=== PATIENT | female | born 1940 | race Caucasian/White ===

== ENCOUNTER → 2016-03-13 | Outpatient (CLI) | payer MEDICARE, OTHER ==
[~2016-03-13] MED LIST: ACETTAB89 PO; ACYC400T PO; ASCO500C49 PO; ASPI-231 PO; CALC-355 OR; CEPH-37 PO; CHOL3000 PO; COEN100C37 PO; CYAN100023 PO; FLAX12003 PO; FURO40TA PO; GINK40TA PO; GLUC1500 OR; IBUP800T24 PO; MULTCAP45 PO; NOR10T PO; OMEGCAP OR; SIMV40TA96 PO; TRAM50TA2 PO; VITA400T4 PO
[2016-03-13 16:30] LABS: Basophils # (auto) 0.1 uL; Basophils % (auto) 0.8 % (0.0-2.0); Eosinophils # (auto) 0.2 uL; Eosinophils % (auto) 2.4 % (0.0-7.0); Hematocrit 42.4 % (36.0-46.0); Hemoglobin 13.8 g/dL (12.2-16.2); Lymphocytes # (auto) 2.9 uL; Lymphocytes % (auto) 29.6 % (10.0-50.0); Mean Corpuscular Hemoglobin 28.3 pg (28.0-32.0); Mean Corpuscular Hgb Conc. 32.6 g/dL (32.0-36.0); Mean Corpuscular Volume 86.7 fL (80.0-100.0); Mean Platelet Volume 8.3 fL (7.4-10.4); Monocytes # (auto) 0.7 uL; Monocytes % (auto) 6.8 % (0.0-12.0); Neutrophils % (auto) 60.4 % (37.0-80.0); Platelet Count (auto) 346 10^3/uL (140-450); Red Cell Distribution Width 14.1 % (11.6-16.0); White Blood Cell 9.9 10^3/uL (4.4-10.8)
[2016-03-13 16:35] LABS: Urine Bilirubin Negative (Negative); Urine Blood Negative /uL (Negative); Urine Color Yellow (Yellow); Urine Glucose Normal (Normal); Urine Ketone Negative (Negative); Urine Nitrite Negative (Negative); Urine Urobilinogen Normal (Negative); Urine pH 6.5 (5.0-8.0)
[2016-03-13 17:11] LABS: Albumin 4.5 g/dL (3.4-5.0); Alkaline Phosphatase 88 U/L (45-117); Anion Gap 10 (5-15); Aspartate Aminotransferase 13 U/L (15-37); BUN/Creatinine Ratio 21.4; Bilirubin, Direct 0.1 mg/dL (0-0.2); Bilirubin, Total 0.5 mg/dL (0.2-1.0); Blood Urea Nitrogen 21 mg/dL (7-18); Calcium 9.3 mg/dL (8.5-10.1); Carbon Dioxide 27 mmol/L (21-32); Chloride 103 mmol/L (98-107); Cholesterol 218 mg/dL (<200); GFR African American 71 mL/min; GFR Non-African American 59 mL/min; Glucose 96 mg/dL (74-106); HDL Cholesterol 44 mg/dL (40-59); Sodium 140 mmol/L (136-145); Total Protein 8.1 g/dL (6.4-8.2); Triglycerides 424 mg/dL (<150)
== END | disposition home or self-care (01) ==
LOC: LAB 07:59
PROVIDERS: ATTEND Internal Medicine Cardiovascular Disease
DX: I10 Essential (primary) hypertension (principal); E78.00 Pure hypercholesterolemia, unspecified; K74.1 Hepatic sclerosis; E11.9 Type 2 diabetes mellitus without complications; E03.9 Hypothyroidism, unspecified; D64.9 Anemia, unspecified; E55.9 Vitamin D deficiency, unspecified; N39.0 Urinary tract infection, site not specified
CPT/HCPCS: 36415; 80048; 80061; 80076; 81003; 82306; 83036; 84443; 85025; 85049

== ENCOUNTER → 2016-08-14 | Outpatient (CLI) | payer MEDICARE, OTHER ==
[2016-08-14 17:04] LABS: Basophils # (auto) 0.1 uL; Basophils % (auto) 0.7 % (0.0-2.0); CONDITION Y; Eosinophils # (auto) 0.2 uL; Eosinophils % (auto) 1.8 % (0.0-7.0); Hematocrit 43.2 % (36.0-46.0); Hemoglobin 14.8 g/dL (12.2-16.2); Lymphocytes % (auto) 36.1 % (10.0-50.0); Mean Corpuscular Hemoglobin 29.4 pg (28.0-32.0); Mean Corpuscular Hgb Conc. 34.2 g/dL (32.0-36.0); Mean Platelet Volume 8.6 fL (7.4-10.4); Monocytes # (auto) 0.7 uL; Monocytes % (auto) 8.4 % (0.0-12.0); Neutrophils # (auto) 4.4 uL; Platelet Count (auto) 324 10^3/uL (140-450); Red Cell Distribution Width 14.2 % (11.6-16.0); White Blood Cell 8.4 10^3/uL (4.4-10.8)
[2016-08-14 17:11] LABS: BUN/Creatinine Ratio 20.4; Calcium 9.6 mg/dL (8.5-10.1); Magnesium 2.6 mg/dL (1.6-2.6); Potassium 3.7 mmol/L (3.5-5.1)
== END | disposition home or self-care (01) ==
LOC: LAB 12:49
PROVIDERS: ATTEND Internal Medicine Cardiovascular Disease
DX: I10 Essential (primary) hypertension (principal); D64.9 Anemia, unspecified; E83.42 Hypomagnesemia
CPT/HCPCS: 36415; 80048; 83735; 85025

== ENCOUNTER → 2016-09-12 | Outpatient (CLI) | payer MEDICARE, OTHER | END | disposition home or self-care (01) | LOC: Rad HDHVI 15:38 | PROVIDERS: ATTEND Internal Medicine Cardiovascular Disease | DX: I48.0 Paroxysmal atrial fibrillation (principal); E78.00 Pure hypercholesterolemia, unspecified | CPT/HCPCS: 93306 ==

== ENCOUNTER → 2016-12-17 | Outpatient (CLI) | payer MEDICARE, OTHER | END | disposition home or self-care (01) | LOC: Rad HDHVI 13:14 | PROVIDERS: ATTEND Internal Medicine Cardiovascular Disease | DX: I25.810 Atherosclerosis of coronary artery bypass graft(s) without angina pectoris (principal) | CPT/HCPCS: 93306; 93970 ==

== ENCOUNTER → 2016-12-23 | Outpatient (CLI) | payer MEDICARE, OTHER ==
[~2016-12-23] VITALS: Ht 167.6 cm; Wt 66.7 kg
[~2016-12-23] MED LIST changes: +ADENOSINE 56 MG in GIVE UN-DILUTED 0 ML IV ONE; +ADENOSINE 90 MG/30 ML INJ IV ONE
== END | disposition home or self-care (01) ==
LOC: Rad HDHVI 14:05
PROVIDERS: ATTEND Internal Medicine Cardiovascular Disease
DX: I11.0 Hypertensive heart disease with heart failure (principal); I50.9 Heart failure, unspecified; I25.10 Atherosclerotic heart disease of native coronary artery without angina pectoris; E78.00 Pure hypercholesterolemia, unspecified; R07.89 Other chest pain; R00.2 Palpitations
CPT/HCPCS: 78452; 93005; 96374; 96375; A9500; J0153

== ENCOUNTER → 2017-06-20 | Outpatient (CLI) | payer MEDICARE, OTHER ==
[~2017-06-20] MED LIST changes: -ADENOSINE 56 MG in GIVE UN-DILUTED 0 ML IV ONE; -ADENOSINE 90 MG/30 ML INJ IV ONE
== END | disposition home or self-care (01) ==
LOC: Rad HDHVI 11:02
PROVIDERS: ATTEND Internal Medicine Cardiovascular Disease
DX: M48.061 Spinal stenosis, lumbar region without neurogenic claudication (principal); M51.26 Other intervertebral disc displacement, lumbar region; M47.896 Other spondylosis, lumbar region
CPT/HCPCS: 72131

== ENCOUNTER → 2017-10-24 | Outpatient (CLI) | payer MEDICARE, OTHER | END | disposition home or self-care (01) | LOC: Rad HDHVI 08:49 | PROVIDERS: ATTEND Internal Medicine Cardiovascular Disease | DX: I08.1 Rheumatic disorders of both mitral and tricuspid valves (principal); J44.9 Chronic obstructive pulmonary disease, unspecified | CPT/HCPCS: 93306 ==

== ENCOUNTER → 2017-10-30 | Outpatient (CLI) | payer MEDICARE, OTHER ==
[~2017-10-30] VITALS: Ht 167.6 cm; Wt 68.0 kg
[~2017-10-30] MED LIST changes: +ADENOSINE 57 MG in GIVE UN-DILUTED 0 ML IV ONE; +ADENOSINE 90 MG/30 ML INJ IV ONE
== END | disposition home or self-care (01) ==
LOC: Rad HDHVI 13:58
PROVIDERS: ATTEND Internal Medicine Cardiovascular Disease
DX: M75.52 Bursitis of left shoulder (principal); R07.89 Other chest pain; E78.00 Pure hypercholesterolemia, unspecified
CPT/HCPCS: 78452; 93005; 96374; 96375; A9500; J0153

== ENCOUNTER → 2018-12-08 | Outpatient (CLI) | payer MEDICARE, OTHER ==
[~2018-12-08] MED LIST changes: +ACYC-161 PO; -ACYC400T PO; -ADENOSINE 57 MG in GIVE UN-DILUTED 0 ML IV ONE; -ADENOSINE 90 MG/30 ML INJ IV ONE; +FURO1TAB31 PO; -FURO40TA PO
== END | disposition home or self-care (01) ==
LOC: Rad HDHVI 14:30
PROVIDERS: ATTEND Internal Medicine Cardiovascular Disease
DX: I08.1 Rheumatic disorders of both mitral and tricuspid valves (principal); I48.0 Paroxysmal atrial fibrillation; J44.9 Chronic obstructive pulmonary disease, unspecified; R00.2 Palpitations
CPT/HCPCS: 93306

== ENCOUNTER → 2018-12-16 | Outpatient (CLI) | payer MEDICARE, OTHER ==
[~2018-12-16] VITALS: Ht 167.6 cm; Wt 62.6 kg
[~2018-12-16] MED LIST changes: +ADENOSINE 53 MG in GIVE UN-DILUTED 0 ML IV ONE; +ADENOSINE 90 MG/30 ML INJ IV ONE
== END | disposition home or self-care (01) ==
LOC: Rad HDHVI 13:42
PROVIDERS: ATTEND Internal Medicine Cardiovascular Disease
DX: I10 Essential (primary) hypertension (principal)
CPT/HCPCS: 78452; 93005; 96374; 96375; A9500; J0153

== ENCOUNTER 2024-03-21 18:21 | Inpatient (IN) | payer MEDICARE, OTHER ==
[~2024-03-21] VITALS: Ht 165.1 cm; Wt 70.0 kg
[~2024-03-21 18:21] MED LIST changes: -ACYC-161 PO; +ACYC400T16 PO; -ADENOSINE 53 MG in GIVE UN-DILUTED 0 ML IV ONE; -ADENOSINE 90 MG/30 ML INJ IV ONE; -ASPI-231 PO; +ASPI1TAB20 PO; +CLOP75TA70 PO; -FLAX12003 PO; +IBUP-1456 PO; -IBUP800T24 PO; +SIMV40TA42 PO; -SIMV40TA96 PO; +[UNRECOGNIZED DRUG - CODE] PO
--- NOTE | 2024-03-21 18:27 | ECG ---
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
[2024-03-21 18:34] VITALS: PULSE 106; RESP 29; O2SAT 93
--- NOTE | 2024-03-21 18:43 | ED.PDOC ---
HPI Comments 84-year-old female brought in by EMS presents with a chief complaint of chest pain and SOB. Patient was transferred over from [facility] for NSTEMI after getting two troponin at 0.11 then 0.45 at their facility. Patient was diagnosed with Pneumonia on 03/10/2024 and currently is on supplemental oxygen. Patient is sating at 94% on 3L/NC. No other symptoms or modifying factors present at this time. Chief Complaint: Chest Pain Time Seen by MD: 18:30 Primary Care Provider: PALOMO Reviewed Notes: Medications, Allergies Allergies: Coded Allergies: NO KNOWN ALLERGIES (Unverified , 09/27/14) Home Meds Active Scripts Cephalexin (Keflex) 500 Mg Cap, 500 MG PO QID for 10 Days Prov:JULIANA MALDONADO MD 10/01/14 Reported Medications Tramadol Hcl (Tramadol Hcl) 50 Mg Tab, 50 MG PO BID, TAB 09/27/15 Hydrocodone-Acetaminophen (Paden 10/325MG) 1 Tab Tb, 1 TAB PO DAILY, #60 TAB 09/22/15 Acyclovir (ZOVIRAX TABLET) 400 Mg Tb, 1 TAB PO DAILY, #60 TAB 3 Refills 09/22/15 Simvastatin (Zocor) 40 Mg Tab, 1 TAB PO DAILY, #90 TAB 1 Refill 09/22/15 Acetaminophen W/ Codeine (Tylenol/Codeine #4) #4 Tab, 1 TAB PO QID, #60 TAB 10/01/14 Ynbrqve-Jdsvnalcs-Cfta (CALCIUM MAGNESIUM & ZINC) Zinc Tab, 1 TAB OR DAILY, TAB 09/27/14 Multiple Vitamin (Multivitamins) Cap, 1 CAP PO DAILY, #30 CAP 3 Refills 09/27/14 Jxdycvunoqi-Fckhsyevmhf-Jhi C- (Glucosamine Chondroitin 1) 1,500 Com Cap, 1500 MG OR DAILY, CAP 09/27/14 [place] 3 Fatty Acids-[place] 6 Fa (HM OMEGA-3-6-9 FATTY ACID) Cap, 1 CAP OR DAILY, CAP 09/27/14 Coenzyme Q10 (Ubidecarenone) (CO Q 10) 100 Mg Cap, 100 MG PO DAILY, CAP 09/27/14 Ginkgo Biloba Extract (Ginkoba) 40 Mg Tab, 120 MG PO DAILY, TAB 09/27/14 Flaxseed (Linseed) (Flaxseed Oil) 1,200 Mg Cap, 1200 MG PO DAILY, CAP 09/27/14 Cyanocobalamin (Vitamin B12) 1,000 Cr Tab, 1 TAB PO DAILY, #30 TAB 2 Refills 09/27/14 Cholecalciferol (VITAMIN D3) 3,000 Unit Tab, 6000 UNIT PO DAILY, TAB 09/27/14 Alpha Tocopheryl Acid Succinat (VITAMIN E) 400 Unit Tab, 1200 UNIT PO DAILY, TAB 09/27/14 Ascorbic Acid (VITAMIN C) 500 Mg Cap, 1000 MG PO DAILY, CAP 09/27/14 Ibuprofen (Ibuprofen) 800 Mg Tab, 1 TAB PO BID, #90 TAB 1 Refill 09/27/14 Furosemide (Lasix) 40 Mg Tab, 40 MG PO DAILY, TAB 09/27/14 Aspirin (Aspir-81) 81 Mg Tab, 1 TAB PO DAILY, #30 TAB 5 Refills 09/27/14 Information Source: Patient, Emergency Med Personnel Mode of Arrival: EMS Severity: Moderate Timing: Days Duration: Since onset Prehospital treatment: None Location: Chest (L) Radiation: No Radiation Quality: Sharp Onset: At Rest Past Medical History PAST MEDICAL HISTORY: Denies Surgical History: Denies all surgeries SOLUTION LEAD History: No Pertinent SOLUTION LEAD History Family History Family History: Reviewed,noncontributory to illness Social History Smoker: Non-Smoker Alcohol: Denies ETOH Use Drugs: Denies Drug Use Lives In: Home Constitutional: denies: chills, diaphoresis, fatigue, fever, malaise, sweats, weakness, others EENTM: denies: blurred vision, double vision, ear bleeding, ear discharge, ear drainage, ear pain, ear ringing, eye pain, eye redness, hearing loss, mouth pain, mouth swelling, nasal discharge, nose bleeding, nose congestion, nose pain, photophobia, tearing, throat pain, throat swelling, voice changes, others Respiratory: reports: shortness of breath; denies: cough, hemoptysis, orthopnea, SOB at rest, SOB with excertion, stridor, wheezing, others Cardiovascular: reports: chest pain; denies: dizzy spells, diaphoresis, Dyspnea on exertion, edema, irregular heart beat, left arm pain, lightheadedness, p alpitations, PND, syncope, others Gastrointestinal: denies: abdomen distended, abdominal pain, blood streaked bowels, constipated, diarrhea, dysphagia, difficulty swallowing, hematemesis, melena, nausea, poor appetite, poor fluid intake, rectal bleeding, rectal pain, vomiting, others Genitourinary: denies: abnormal vagina bleeding, burning, dyspareunia, dysuria, flank pain, frequency, hematuria, incontinence, pain, , vagina discharge, urgency, others Neurological: denies: dizziness, fainting, headache, left sided numbness, left sided weakness, numbness, paresthesia, pre-existing deficit, right sided numbness, right sided weakness, seizure, speech problems, tingling, tremors, weakness, others Musculoskeletal: denies: back pain, gout, joint pain, joint swelling, muscle pain, muscle stiffness, neck pain, others Integumetry: denies: bruises, change in color, change in hair/nails, dryness, laceration, lesions, lumps, rash, wounds, others Allergic/Immunocompromised: denies: Difficulty Healing, Frequent Infections, Hives, Itching, others Hematologic/Lymphatic: denies: anemia, blood clots, easy bleeding, easy bruising, swollen glands, others Endocrine: denies: excessive hunger, excessive sweating, excessive thirst, excessive urination, flushing, intolerance to cold, intolerance to heat, unexplained weight gain, unexplained weight loss, others Psychiatric: denies: anxiety, bipolar disorder, depression, hopeless, panic disorder, schizophrenia, sleepless, suicidal, others All Other Systems: Reviewed and Negative Physical Exam General Appearance: Moderate Distress, Thin HEENT: Normal ENT Inspection, Pharynx Normal, TMs Normal Neck: Full Range of Motion, Non-Tender, Normal, Normal Inspection Respiratory: Chest Non-Tender, Decreased Breath Sounds, No Accessory Muscle Use, Respiratory Distress Cardiovascular: No Edema, No JVD, No Murmur, No Gallop, Other (irregularly irregular rhythm) Breast Exam: Deferred Gastrointestinal: No Organomegaly, Non Tender, No Pulsatile Mass, Normal Bowel Sounds, Soft Genitalia: Deferred Pelvic: Deferred Rectal: Deferred Extremities: No calf tenderness, Normal capillary refill, Normal inspection, Normal range of motion, Non-tender, No pedal edema Musculoskeletal : Apperance: Normal Neurologic: Alert, hydrometeorological technician II-XII nml as Tested, No Motor Deficits, Normal Affect, Normal Mood, No Sensory Deficits Cerebellar Function: Normal Reflexes: Normal Skin: Dry, Normal Color, Warm Lymphatic: No Adenopathy Was a procedure done? Was a procedure done?: No CP Differential Dx Differential Diagnosis: A-fib, A-Flutter, Heart Failure, Hyperthyroidism, Hyperventilation, Hypoxia, Pulmonary Embolus, Renal Failure, Sinus Tachycardia, V-Fib, V-Tach Differential Diagnosis: CHF X-Ray, Labs, Meds, VS Vital Signs Date Time Temp Pulse Resp B/P (MAP) Pulse Ox O2 Delivery O2 Flow Rate FiO2 03/21/24 19:07 108 03/21/24 18:34 106 29 93 Nasal Cannula* 4 36 03/21/24 18:34 93 Nasal Cannula* 3 32 03/21/24 18:26 93 03/21/24 18:25 98.3 115 16 127/51 (76) 95 Lab Test 03/21/24 18:42 Range/Units White Blood Count 33.8 *H 4.4-10.8 10^3/uL Red Blood Count 3.99 L 4.0-5.20 10^6/uL Hemoglobin 11.6 L 12.2-16.2 g/dL Hematocrit 34.9 L 36.0-46.0 % Mean Corpuscular Volume 87.5 80.0-100.0 fL Mean Corpuscular Hemoglobin 29.0 28.0-32.0 pg Mean Corpuscular Hemoglobin Concent 33.2 32.0-36.0 g/dL Red Cell Distribution Width 15.3 H 11.8-14.3 % Platelet Count 585 H 140-450 10^3/uL Mean Platelet Volume 7.4 6.9-10.8 fL Neutrophils (%) (Auto) 37.0-80.0 % Lymphocytes (%) (Auto) 10.0-50.0 % Monocytes (%) (Auto) 0.0-12.0 % Basophils (%) (Auto) 0.0-2.0 % Neutrophils # (Auto) 1.6-8.6 10 ^3/uL Lymphocytes # (Auto) 0.4-5.4 10 ^3/uL Monocytes # (Auto) 0-1.3 10 ^3/uL Differential Total Cells Counted Pending Neutrophils % (Manual) Pending Band Neutrophils % (Manual) Pending Lymphocytes % (Manual) Pending Monocytes % (Manual) Pending Eosinophils % (Manual) Pending Basophils % (Manual) Pending Metamyelocytes % (manual) Pending Myelocytes % (Manual) Pending Promyelocytes % (Manual) Pending Blast Cells % (Manual) Pending Reactive Lymphocytes Pending Platelet Estimate Pending Sodium Level Pending Potassium Level Pending Chloride Level Pending Carbon Dioxide Level Pending Anion Gap Pending Blood Urea Nitrogen Pending Creatinine Pending Glomerular Filtration Rate Calc Pending BUN/Creatinine Ratio Pending Serum Glucose Pending Lactic Acid Level 1.4 0.4-2.0 mmol/L Calcium Level Pending Magnesium Level Pending Total Bilirubin Pending Aspartate Amino Transferase (AST) Pending Alanine Aminotransferase (ALT) Pending Alkaline Phosphatase Pending Troponin I High Sensitivity Pending B-Type Natriuretic Peptide Pending Total Protein Pending Albumin Pending Current Medications Medications (Trade) Dose Ordered Sig/Rosa Route Start Time Stop Time Status Last Admin Ceftriaxone Sodium 50 ml @ 100 mls/hr ONCE ONCE IV 03/21/24 18:45 03/21/24 19:14 DC 03/21/24 18:47 Time of 1ST Reevaluation: 19:00 Reevaluation 1ST: Unchanged Time of 2ND Reevaluation: 19:37 Reevaluation 2ND: Unchanged Patient Education/Counseling: Diagnosis, Treatment, Prognosis Family Education/Counseling: Diagnosis, Treatment, Prognosis Departure 1 Departure Time of Disposition: 19:37 Impression: Primary Impression: Pneumonia Additional Impressions: Atrial fibrillation Intermediate coronary syndrome Disposition: ADMITTED INPATIENT Admit to: [facility] Condition: Guarded Discharged With: Self Critical Care Note Critical Care Time?: Yes (45 min-critical care time only) Critical care comment: Total critical care time: Approximately 36 minutes Due to a high probability of clinically significant, life threatening deterioration, the patient required my highest level of preparedness to intervene emergently and I personally spent this critical care time directly and personally managing the patient. This critical care time included obtaining a history; examining the patient; pulse oximetry; ordering and review of studies; arranging urgent treatment with development of a management plan; evaluation of patient's response to treatment; frequent reassessment; and, discussions with other providers. This critical care time was performed to assess and manage the high probability of imminent, life-threatening deterioration that could result in multi-organ failure. It was exclusive of separately billable procedures and treating other patients. Stability Stability form required: No Heart Score Heart Score: Heart Score Response (Comments) Value History Moderate Suspicious 1 EKG Repolarization Disturb 1 Age >65 2 Risk Factors 1 or 2 risk factors 1 Troponin >3 x's Normal limit 2 Total 7 I personally scribed for RAMAN JIM MD ([email or web address]) on 03/21/24 at 18:43. Electronically submitted by Ambrosio Clement ([email or web address]). RAMAN JIM MD Mar 21, 2024 18:43
[2024-03-21] MEDS: cefTRIAXone 1GM/50ML D5W 50 ML IV ONE (18:47)
[2024-03-21 19:04] LABS: Hematocrit 34.9 % (36.0-46.0); Hemoglobin 11.6 g/dL (12.2-16.2); Mean Corpuscular Hgb Conc. 33.2 g/dL (32.0-36.0); Mean Corpuscular Volume 87.5 fL (80.0-100.0); Platelet Count (auto) 585 10^3/uL (140-450); Red Blood Cells 3.99 10^6/uL (4.0-5.20); Red Cell Distribution Width 15.3 % (11.8-14.3)
[2024-03-21 19:11] LABS: White Blood Cell 33.8 10^3/uL (4.4-10.8)
[2024-03-21 19:12] LABS: Basophils % (manual) 0 (0.0-2.0); Blast Cells 0; Eosinophils % (manual) 0 (0-7); Metamyelocytes % 0; Myelocytes % 0; Promyelocytes % 0; Reactive Lymphocytes 0
[2024-03-21 19:22] LABS: Albumin 3.4 g/dL (3.2-4.8); Anion Gap 9 (5-15); BUN/Creatinine Ratio 35.6 (10.0-20.0); Bilirubin, Total 1.2 mg/dL (0.2-1.0); Blood Urea Nitrogen 21 mg/dL (9-23); Calcium 8.9 mg/dL (8.7-10.4); Carbon Dioxide 24 mmol/L (20-31); Chloride 101 mmol/L (98-107); Glucose 106 mg/dL (74-106); Magnesium 1.9 mg/dL (1.6-2.6); Potassium 4.8 mmol/L (3.5-5.1)
--- NOTE | 2024-03-21 19:29 | DVH ---
CHEST RADIOGRAPH Indication: chest pain Technique: Single frontal view of the chest was obtained Comparison: None FINDINGS: Lines and Tubes: Bilateral calcified breast implants Lungs: Mildly prominent interstitial markings bilaterally. Pleura: No effusion. No pneumothorax. Cardiomediastinal contours: Mild cardiomegaly Bones: No acute osseous abnormality. IMPRESSION: 1. Cardiomegaly. 2. Findings may represent congestive failure or pneumonia.
[2024-03-21 19:30] VITALS: PULSE 100; RESP 28; O2SAT 92
[2024-03-21 19:36] LABS: Alanine Aminotransferase 56 U/L (7-40); Alkaline Phosphatase 252 U/L (46-116); Aspartate Aminotransferase 73 U/L (13-40); Sodium 134 mmol/L (136-145); Total Protein 5.6 g/dL (5.7-8.2)
[2024-03-21 20:02] LABS: Band Neutrophils % (manual) 7; Lymphocytes % (manual) 12 (10.0-50.0); Monocytes % (manual) 3 (0-12); Platelet Estimate Increased
[2024-03-21 20:54] LABS: Urine Bacteria None Seen /hpf (None Seen)
[2024-03-21 21:49] LABS: Urine Blood Negative /uL (Negative); Urine Clarity Clear (Clear); Urine Color Yellow (Yellow); Urine Protein, UAD TRACE (Negative); Urine Squamous Epithelial Cell None Seen /hpf (<5); Urine Urobilinogen 2 mg/dL (Negative); Urine WBC 2 /HPF (0-5)
[2024-03-21 21:52] LABS: Rapid Influenza A Negative (Negative); Rapid Influenza B Negative (Negative)
[2024-03-21 21:52] LABS: Urine Specific Gravity > 1.035 (1.001-1.035)
[2024-03-21 21:55] LABS: COVID19 ANTIGEN SOFIA FIA NEGATIVE (NEGATIVE)
[2024-03-21 22:17] LABS: Phencyclidine Screen, Urine Neg (NEGATIVE)
[2024-03-21 22:19] LABS: Amphetamine Screen, Urine Neg (NEGATIVE); Barbiturate Scree,Urine Neg (NEGATIVE); Benzodiazephine Screen, Urine Neg (NEGATIVE); Cannabinoid Screen, Urine Neg (NEGATIVE); Cocaine Screen, Urine Neg (NEGATIVE); Opiate Scree,Urine Pos (NEGATIVE)
[2024-03-21] MEDS ORDERED: DOCUSATE SOD 100 MG CAP PO PRN (22:45)
[2024-03-21] MEDS: METOPROLOL TARTRATE 25 MG TAB PO SCH (22:45)
[2024-03-21] MEDS ORDERED: NITROGLYCERIN 0.4 MG SL TAB SL PRN (22:45)
[2024-03-21] MEDS ORDERED: HYDROcodone-ACET 5/325MG TAB PO PRN (22:45)
[2024-03-21] MEDS ORDERED: MORPHINE SULFATE INJ 2 MG/ml SYRG IV PRN ×2 (22:45)
[2024-03-21 23:40] VITALS: PULSE 103; RESP 22; O2SAT 93
[2024-03-21] MEDS: IPRATROPIUM BROM 0.5 MG/2.5ML INH SOL NEB SCH (23:40)
[2024-03-21] MEDS: ALBUTEROL SULF 2.5 MG/0.5ML(0.5%) NEB SOLN NEB SCH (23:40)
[2024-03-21 23:48] VITALS: PULSE 94; RESP 20; O2SAT 97
[2024-03-22] VITALS (16 sets, daily range): BP systolic 100–124; BP diastolic 52–70; PULSE 93–124; RESP 14–20; TEMP 97.4–102; O2SAT 91–99
--- NOTE | 2024-03-22 00:56 | DVHHP2 ---
PETER BENITEZ DENTAL CERAMIST 03/22/24 0056: History of Present Illness Reason for Visit: Chest pain shortness of breath History of Present Illness 84 year-old female female with past medical history of HLD, afib, HTN, COPD, PCI with two stents 2015, renal Ca s/p left nephrectomy Was transferred from [facility] for elevated troponin with complaints of shortness of breath and chest pain over the previous five days. Chest pain towards the left side Non-radiating, 09/02. Patient endorses she does not use supplemental oxygen at home. Also endorses she was recently diagnosed with pneumonia on the . Also states her feet have been more swollen the last couple days. During the emergency department evaluation troponin 167/173/158; BNP 631; And patient is requiring supplemental oxygen at 3 LNC To maintain oxygen saturation 93%. There are no complaints of fevers, chills, palpitations, nausea, vomiting, Abdominal pain. Cardiovascular: AFIB, HTN, hyperipidemia Pulmonary: COPD Past Surgical History Left nephrectomy; PCI w/ 2 stents (2015) Smoke: No ALCOHOL: none Drugs: None Lives: with Family Review of Systems Constitutional: No: Fever, Chills, Sweats, Weakness, Malaise, Other Eyes: No: Pain, Vision change, Conjunctivae inflammation, Eyelid inflammation, Other, Redness ENT: No: Ear pain, Ear discharge, Nose pain, Nose discharge, Nose congestion, Mouth pain, Mouth swelling, Throat pain, Throat swelling, Other Respiratory: Shortness of breath; No: Cough, Dry, SOB with excertion, Wheezing, Hemoptysis, Pleuritic Pain, Sputum, Wheezing, Other Cardiovascular: Chest Pain; No: Palpitations, Orthopnea, Paroxysmal Noc. Dyspnea, Edema, Lt Headedness, Other Gastrointestinal: No: Nausea, Vomiting, Abdominal Pain, Diarrhea, Constipation, Melena, Hematochezia, Other Genitourinary: No Dysuria, No Frequency, No Incontinence, No Hematuria, No Retention, No Other Musculoskeletal: No: other, neck pain, shoulder pain, arm pain, back pain, hand pain, leg pain, foot pain Skin: No: Rash, Lesions, Jaundice, Bruising, Other Neurological: No: Weakness, Numbness, Incoordination, Change in speech, Confusion, Seizures, Other Allergies: Coded Allergies: NO KNOWN ALLERGIES (Unverified , 09/27/14) Medications Current Medications Medications Dose Ordered Sig/Rosa Route Start Time Stop Time Status Last Admin Dose Admin Docusate Sodium 100 mg BIDPRN PRN PO 03/21/24 22:45 Acetaminophen 650 mg Q6HP PRN PO 03/21/24 22:45 Acetaminophen/ Hydrocodone Bitart 1 tab Q6HP PRN PO 03/21/24 22:45 Ondansetron HCl 4 mg Q4HP PRN IV 03/21/24 22:45 Morphine Sulfate 2 mg Q4HPRN PRN IV 03/21/24 22:45 Nitroglycerin 0.4 mg Q5MINP PRN SL 03/21/24 22:45 Morphine Sulfate 2 mg Q30M PRN IV 03/21/24 22:45 Aspirin 81 mg DAILY PO 03/22/24 10:00 Atorvastatin Calcium 80 mg DAILY PO 03/22/24 10:00 Enoxaparin Sodium 60 mg Q12HR SC 03/22/24 10:00 Azithromycin 250 ml @ 125 mls/hr DAILY IV 03/22/24 10:00 Ceftriaxone Sodium 50 ml @ 100 mls/hr Q24H IV 03/22/24 19:00 Albuterol 2.5 mg Q6HR NEB 03/22/24 00:00 03/21/24 23:40 2.5 MG Ipratropium [place] 0.5 mg Q6HR NEB 03/22/24 00:00 03/21/24 23:40 0.5 MG Metoprolol Tartrate 12.5 mg DAILY PO 03/21/24 22:45 Exam Vital Signs Vital Signs Date Time Temp Pulse Resp B/P (MAP) Pulse Ox O2 Delivery O2 Flow Rate FiO2 03/22/24 00:20 102.0 94 20 112/61 93 4.0 36 102.0 03/21/24 23:40 Nasal Cannula General Appearance: Alert, Oriented X3, Cooperative, moderate distress HEENT: Atraumatic, PERRLA Respiratory: Clear to auscultation, Normal air movement Cardiovascular: Normal S1, Normal S2, Other (A fib) Abdominal: Normal bowel sounds, Soft, No tenderness Extremities: No clubbing (Trace edema BLE), No cyanosis Skin: No rashes, No breakdown Neuro: Normal speech, Strength at 5/5 X4 ext Psych/Mental Status: Mental status NL, Mood NL Labs/Xrays Labs Test 03/21/24 21:36 03/21/24 20:54 03/21/24 20:52 03/21/24 18:42 Range/Units Troponin I High Sensitivity 158 *H </=34 ng/L Influenza Type A Antigen Negative Negative Influenza Type B Antigen Negative Negative SARS-CoV-2 Antigen (Rapid) Negative NEGATIVE Urine Color Yellow Yellow Urine Clarity Clear Clear Urine pH 6.0 5.0-9.0 Urine Specific [place] > 1.035 H 1.001-1.035 Urine Protein Trace H Negative Urine Ketones Negative Negative Urine Blood Negative Negative /uL Urine Nitrite Negative Negative Urine Bilirubin Negative Negative Urine Urobilinogen 2 H Negative mg/dL Urine Leukocyte Esterase Negative Negative /uL Urine RBC 1 0 - 4 /hpf Urine Microscopic WBC 2 0-5 /HPF Urine Squamous Epithelial Cells None seen <5 /hpf Urine Bacteria None seen None Seen /hpf Urine Glucose Normal Normal mg/dL Urine Opiates Screen Pos NEGATIVE Urine Fentanyl Screen Neg NEGATIVE Urine Barbiturates Screen Neg NEGATIVE Urine Phencyclidine Screen Neg NEGATIVE Urine Amphetamines Screen Neg NEGATIVE Urine Benzodiazepines Screen Neg NEGATIVE Urine Cocaine Screen Neg NEGATIVE Urine Cannabinoids Screen Neg NEGATIVE White Blood Count 33.8 *H 4.4-10.8 10^3/uL Red Blood Count 3.99 L 4.0-5.20 10^6/uL Hemoglobin 11.6 L 12.2-16.2 g/dL Hematocrit 34.9 L 36.0-46.0 % Mean Corpuscular Volume 87.5 80.0-100.0 fL Mean Corpuscular Hemoglobin 29.0 28.0-32.0 pg Mean Corpuscular Hemoglobin Concent 33.2 32.0-36.0 g/dL Red Cell Distribution Width 15.3 H 11.8-14.3 % Platelet Count 585 H 140-450 10^3/uL Mean Platelet Volume 7.4 6.9-10.8 fL Neutrophils (%) (Auto) 37.0-80.0 % Lymphocytes (%) (Auto) 10.0-50.0 % Monocytes (%) (Auto) 0.0-12.0 % Basophils (%) (Auto) 0.0-2.0 % Neutrophils # (Auto) 1.6-8.6 10 ^3/uL Lymphocytes # (Auto) 0.4-5.4 10 ^3/uL Monocytes # (Auto) 0-1.3 10 ^3/uL Differential Total Cells Counted 100.0 100 Neutrophils % (Manual) 78 37.0-80.0 Band Neutrophils % (Manual) 7 Lymphocytes % (Manual) 12 10.0-50.0 Monocytes % (Manual) 3 0-12 Eosinophils % (Manual) 0 0-7 Basophils % (Manual) 0 0.0-2.0 Metamyelocytes % (manual) 0 Myelocytes % (Manual) 0 Promyelocytes % (Manual) 0 Blast Cells % (Manual) 0 Reactive Lymphocytes 0 Platelet Estimate Increased Sodium Level 134 L 136-145 mmol/L Potassium Level 4.8 3.5-5.1 mmol/L Chloride Level 101 98-107 mmol/L Carbon Dioxide Level 24 20-31 mmol/L Anion Gap 9 5-15 Blood Urea Nitrogen 21 9-23 mg/dL Creatinine 0.59 0.550-1.02 mg/dL Glomerular Filtration Rate Calc 90 >90 mL/min BUN/Creatinine Ratio 35.6 H 10.0-20.0 Serum Glucose 106 74-106 mg/dL Lactic Acid Level 1.4 0.4-2.0 mmol/L Calcium Level 8.9 8.7-10.4 mg/dL Magnesium Level 1.9 1.6-2.6 mg/dL Total Bilirubin 1.2 H 0.2-1.0 mg/dL Aspartate Amino Transferase (AST) 73 H 13-40 U/L Alanine Aminotransferase (ALT) 56 H 7-40 U/L Alkaline Phosphatase 252 H 46-116 U/L B-Type Natriuretic Peptide 631.40 0-100 pg/mL Total Protein 5.6 L 5.7-8.2 g/dL Albumin 3.4 3.2-4.8 g/dL Assessment/Plan Assessment/Plan NSTEMI (elevated troponin) Acute hypoxic respiratory failure Pneumonia A fib, controlled rate Hypertension Hx of COPD Hx PCI with 2 stents (2015) Hx left nephrectomy Plan Admit telemetry Cardiology consult. Echocardiogram. ASA. Statin. As needed anti hypertensive for optimal BP management. Low dose BB for rate control. Consult pulmonology. Bronchodilators. As needed supplemental O2 to maintain O2 saturation greater Than 93%. RT monitoring. Avoid nephrotoxic agent. Physical therapy evaluation Social service consult for home safety eval GI ppx Protonix / DVT ppx therapeutic Lovenox. Plan discussed with: Patient My Orders Orders - PETER BENITEZ NP Procedure Category Date Status Time Admit ADMIT 03/21/24 Transmitted 22:41 Code Status CODE 03/21/24 Transmitted 22:41 Vital Signs TIMUR 03/21/24 In Process 22:41 Review Orders With TIMUR 03/21/24 In Process Adm. 22:41 Encourage Activity As TIMUR 03/21/24 In Process Tolerate 22:41 Consistent DIET 03/22/24 Transmitted Carb(Ccho)Diabetes Breakfast Oxygen By Face Mask RT 03/21/24 Transmitted 22:41 Docusate Sodium PHA 03/21/24 In Process Capsule (Colace 22:45 Basic Metabolic Panel LAB 03/24/24 Verified 05:00 Basic Metabolic Panel LAB 03/25/24 Verified 05:00 Basic Metabolic Panel LAB 03/26/24 Verified 05:00 Complete Blood Count LAB 03/22/24 Logged 05:00 Complete Blood Count LAB 03/23/24 Verified 05:00 Complete Blood Count LAB 03/24/24 Verified 05:00 Complete Blood Count LAB 03/25/24 Verified 05:00 Complete Blood Count LAB 03/26/24 Verified 05:00 Patient Condition ORDERS 03/21/24 Transmitted 22:41 Allergies TIMUR 03/21/24 In Process 22:41 Hydrocodone-Acet PHA 03/21/24 In Process 5/325mg Tab ([place] 22:45 Ondansetron Hcl PHA 03/21/24 In Process (Zofran) 22:45 Morphine Sulfate PHA 03/21/24 In Process Injection 22:45 Sequential TIMUR 03/21/24 In Process Compression Device Nitroglycerin PHA 03/21/24 In Process Sublingual (Ntrostat 22:45 Morphine Sulfate PHA 03/21/24 In Process Injection 22:45 Stat Ekg For Chest TIMUR 03/21/24 In Process Pain 22:41 Notify Of Changes TIMUR 03/21/24 In Process From Base 22:41 Science Education Professor For TIMUR 03/21/24 In Process 24 Hours 22:41 Emergency Dysrhythmia TIMUR 03/21/24 In Process Protocol 22:41 Rhythm Strips Once TIMUR 03/21/24 In Process Every Shift 22:41 Oxygen By Nasal RT 03/21/24 Transmitted Cannula 22:41 * Cardiology Consult CONS 03/21/24 Transmitted 22:41 *Consult CONS 03/21/24 Transmitted / 22:41 Aspirin Tablet PHA 03/22/24 In Process 10:00 Atorvastatin (Lipitor) PHA 03/22/24 In Process 10:00 Enoxaparin Sodium PHA 03/22/24 In Process (Lovenox) 10:00 Azithromycin 500mg/ PHA 03/22/24 In Process 250ml (Zithromax 50 10:00 Ceftriaxone 1gm/50ml PHA 03/22/24 In Process D5w (Rocephin) 19:00 Albuterol Medneb PHA 03/22/24 In Process (Ventolin Medneb) 00:00 Ipratropium Medneb PHA 03/22/24 In Process (Atrovent Medneb) 00:00 Metoprolol Tartrate PHA 03/21/24 In Process Tablet (Lopressor Ta 22:45 Acetaminophen Tablet PHA 03/21/24 In Process (Tylenol Tablet) 22:45 Notify Of Changes TIMUR 03/21/24 In Process From Base 22:41 Advance Directive TIMUR 03/21/24 In Process 22:41 Echo 2d Mode Cardiac US 03/21/24 Verified DOP 22:41 Basic Metabolic Panel LAB 03/22/24 Logged 05:00 Basic Metabolic Panel LAB 03/23/24 Verified 05:00 Communication Order ORDERS 03/21/24 Transmitted 23:10 Date of Service: Mar 22, 2024 Billing Provider: ARNOL ADAMS MD Common Visit Codes: NOT BILLABLE ARNOL ADAMS MD 03/22/24 1740: Review of Systems Allergies: Coded Allergies: NO KNOWN ALLERGIES (Unverified , 09/27/14) Assessment/Plan Assessment/Plan Patient is seen and evaluated by me this afternoon. Patient is seen evaluated and admitted by nurse practitioner cycle specialist. I agree with his evaluation, documentation, assessment and care plan as outlined. PETER BENITEZ NP Mar 22, 2024 00:56 ARNOL ADAMS MD Mar 22, 2024 17:40
[2024-03-22 03:50] LABS: Hemoglobin 11.1 g/dL (12.2-16.2)
[2024-03-22 03:55] LABS: Hematocrit 32.7 % (36.0-46.0); Mean Corpuscular Hemoglobin 29.3 pg (28.0-32.0); Mean Corpuscular Hgb Conc. 33.9 g/dL (32.0-36.0); Mean Corpuscular Volume 86.5 fL (80.0-100.0); Platelet Count (auto) 560 10^3/uL (140-450); Red Blood Cells 3.78 10^6/uL (4.0-5.20); Red Cell Distribution Width 15.1 % (11.8-14.3); White Blood Cell 24.1 10^3/uL (4.4-10.8)
[2024-03-22 04:02] LABS: Basophils % (manual) 0 (0.0-2.0); Blast Cells 0; Eosinophils % (manual) 0 (0-7); Myelocytes % 0; Promyelocytes % 0; Reactive Lymphocytes 0
[2024-03-22 04:09] LABS: Chloride 102 mmol/L (98-107); Potassium 4.1 mmol/L (3.5-5.1)
[2024-03-22 04:10] LABS: Anion Gap 9 (5-15); Calcium 9.5 mg/dL (8.7-10.4); Carbon Dioxide 25 mmol/L (20-31)
[2024-03-22 04:15] LABS: BUN/Creatinine Ratio 25.8 (10.0-20.0); Blood Urea Nitrogen 16 mg/dL (9-23)
[2024-03-22 04:25] LABS: Glucose 110 mg/dL (74-106); Sodium 136 mmol/L (136-145)
--- NOTE | 2024-03-22 04:25 | ECG ---
[facility] Test Date: 2024-03-21 Test Time: 19:31:15 Pat Name: LAURA BUSH Department: ED Room: 0221T Gender: F Roll Reclaimer: JEANETTE : 1940 Requested By: RAMAN JIM Order Number: [id number] Reading MD: El Mg Measurements Intervals [place] Rate: 91 P: 0 MN: 0 QRS: 45 QRSD: 91 T: 90 QT: 360 QTc: 443 Interpretive Statements Atrial fibrillation Anteroseptal infarct, age indeterminate ST elevation, consider inferior injury Electronically Signed On 03-24-2024 8:51:28 PST by El Mg Please click the below link to view image of tracing.
[2024-03-22 06:07] LABS: Band Neutrophils % (manual) 2; Lymphocytes % (manual) 4 (10.0-50.0); Metamyelocytes % 2; Monocytes % (manual) 7 (0-12); Platelet Estimate Increased
[2024-03-22 06:08] LABS: Large Platelets FEW
--- NOTE | 2024-03-22 09:40 | DVHINCON2 ---
Date Seen: Mar 22, 2024 Referring [facility]ician [facility] Reason for Consultation Chest pain. History of Present Illness 84-year-old lady with a known history of coronary artery disease with a history of stenting to the left main and to the RCA back in 2018. Patient has developed progressive episodes of chest pain and shortness of breath. She also had left flank pain. Status post left nephrectomy. She is originally from [place]. She was diagnosed with pneumonia and is currently on supplemental oxygen but she also has been having recurrent substernal pressure. Past Medical History Her past medical history significant for left nephrectomy. History of stenting with a stent to the left main and to the RCA. She was previously evaluated by Dr. Whitney. She was known to have normal echocardiographic evaluation at least 2- 3 years ago Past Surgical History Left nephrectomy Family History: Family history: Cardiovascular disease G8 FATHER Allergies: Coded Allergies: NO KNOWN ALLERGIES (Unverified , 09/27/14) Home Meds Active Scripts Cephalexin (Keflex) 500 Mg Cap, 500 MG PO QID for 10 Days Prov:JULIANA MALDONADO MD 10/01/14 Reported Medications Tramadol Hcl (Tramadol Hcl) 50 Mg Tab, 50 MG PO BID, TAB 09/27/15 Hydrocodone-Acetaminophen ([place] 10/325MG) 1 Tab Tb, 1 TAB PO DAILY, #60 TAB 09/22/15 Acyclovir (ZOVIRAX TABLET) 400 Mg Tb, 1 TAB PO DAILY, #60 TAB 3 Refills 09/22/15 Simvastatin (Zocor) 40 Mg Tab, 1 TAB PO DAILY, #90 TAB 1 Refill 09/22/15 Acetaminophen W/ Codeine (Tylenol/Codeine #4) #4 Tab, 1 TAB PO QID, #60 TAB 10/01/14 Auuxmei-Bfygdtdaj-Ujbn (CALCIUM MAGNESIUM & ZINC) Zinc Tab, 1 TAB OR DAILY, TAB 09/27/14 Multiple Vitamin (Multivitamins) Cap, 1 CAP PO DAILY, #30 CAP 3 Refills 09/27/14 Pojvtwotxqj-Nlblllpxkzz-Pwr C- (Glucosamine Chondroitin 1) 1,500 Com Cap, 1500 MG OR DAILY, CAP 09/27/14 [place] 3 Fatty Acids-[place] 6 Fa (HM OMEGA-3-6-9 FATTY ACID) Cap, 1 CAP OR DAILY, CAP 09/27/14 Coenzyme Q10 (Ubidecarenone) (CO Q 10) 100 Mg Cap, 100 MG PO DAILY, CAP 09/27/14 Ginkgo Biloba Extract (Ginkoba) 40 Mg Tab, 120 MG PO DAILY, TAB 09/27/14 Flaxseed (Linseed) (Flaxseed Oil) 1,200 Mg Cap, 1200 MG PO DAILY, CAP 09/27/14 Cyanocobalamin (Vitamin B12) 1,000 Cr Tab, 1 TAB PO DAILY, #30 TAB 2 Refills 09/27/14 Cholecalciferol (VITAMIN D3) 3,000 Unit Tab, 6000 UNIT PO DAILY, TAB 09/27/14 Alpha Tocopheryl Acid Succinat (VITAMIN E) 400 Unit Tab, 1200 UNIT PO DAILY, TAB 09/27/14 Ascorbic Acid (VITAMIN C) 500 Mg Cap, 1000 MG PO DAILY, CAP 09/27/14 Ibuprofen (Ibuprofen) 800 Mg Tab, 1 TAB PO BID, #90 TAB 1 Refill 09/27/14 Furosemide (Lasix) 40 Mg Tab, 40 MG PO DAILY, TAB 09/27/14 Aspirin (Aspir-81) 81 Mg Tab, 1 TAB PO DAILY, #30 TAB 5 Refills 09/27/14 Current Medications Current Medications Medications (Trade) Dose Ordered Sig/Rosa Route PRN Reason Start Time Stop Time Status Last Admin Docusate Sodium (Colace Capsule) 100 mg BIDPRN PRN PO FOR CONSTIPATION 03/21/24 22:45 Acetaminophen (Tylenol Tablet) 650 mg Q6HP PRN PO PAIN SCALE 1-3 OR TEMP>100.4 03/21/24 22:45 Acetaminophen/ Hydrocodone Bitart ([place] 5/325MG Tab) 1 tab Q6HP PRN PO MODERATE PAIN (4-6 PAIN SCALE) 03/21/24 22:45 Ondansetron HCl (Zofran) 4 mg Q4HP PRN IV NAUSEA / VOMITING 03/21/24 22:45 Morphine Sulfate 2 mg Q4HPRN PRN IV SEVERE PAIN (7-10 PAIN SCALE) 03/21/24 22:45 Nitroglycerin (Ntrostat Sublingual) 0.4 mg Q5MINP PRN SL FOR CHEST PAIN 03/21/24 22:45 Morphine Sulfate 2 mg Q30M PRN IV FOR CHEST PAIN 03/21/24 22:45 Aspirin 81 mg DAILY PO 03/22/24 10:00 Atorvastatin Calcium (Lipitor) 80 mg DAILY PO 03/22/24 10:00 Enoxaparin Sodium (Lovenox) 60 mg Q12HR SC 03/22/24 10:00 Azithromycin 250 ml @ 125 mls/hr DAILY IV 03/22/24 10:00 Ceftriaxone Sodium 50 ml @ 100 mls/hr Q24H IV 03/22/24 19:00 Albuterol (Ventolin Medneb) 2.5 mg Q6HR NEB 03/22/24 00:00 03/22/24 06:20 Ipratropium [place] (Atrovent Medneb) 0.5 mg Q6HR NEB 03/22/24 00:00 03/22/24 06:20 Metoprolol Tartrate (Lopressor Tablet) 12.5 mg DAILY PO 03/21/24 22:45 Review of Systems No fevers chills or weight loss. HEENT negative. Cardiac and respiratory as noted above. GI negative. significant for nephrectomy as mentioned. Hematological oncological as noted above. Neurologically in dermatologically him and oncologic negative otherwise. Vital Signs Vital Signs Date Time Temp Pulse Resp B/P (MAP) Pulse Ox O2 Delivery O2 Flow Rate FiO2 03/22/24 09:28 97.8 103 16 124/68 (86) 91 97.8 03/22/24 07:30 Nasal Cannula* 4 36 Physical Exam She is awake and responsive. No acute distress. Vital signs are noted. HEENT examination reveals pale conjunctivae well hydrated. No jugular distention no bruits. Lungs reveal good air entry no rales or rhonchi. Heart exam reveals regular S1-S2 soft S4. Abdominal examination is unremarkable. Extremities reveal adequate perfusion without clubbing or cyanosis no significant edema. Neurologically intact. Integumentary is normal. Labs/Diagnostic Data Her EKG shows a sinus rhythm with nonspecific ST segment changes. Labs Test 03/22/24 06:40 03/22/24 03:28 03/21/24 20:54 03/21/24 20:52 Range/Units Troponin I High Sensitivity 107 *H </=34 ng/L White Blood Count 24.1 #H 4.4-10.8 10^3/uL Red Blood Count 3.78 L 4.0-5.20 10^6/uL Hemoglobin 11.1 L 12.2-16.2 g/dL Hematocrit 32.7 L 36.0-46.0 % Mean Corpuscular Volume 86.5 80.0-100.0 fL Mean Corpuscular Hemoglobin 29.3 28.0-32.0 pg Mean Corpuscular Hemoglobin Concent 33.9 32.0-36.0 g/dL Red Cell Distribution Width 15.1 H 11.8-14.3 % Platelet Count 560 H 140-450 10^3/uL Mean Platelet Volume 7.0 6.9-10.8 fL Neutrophils (%) (Auto) 37.0-80.0 % Lymphocytes (%) (Auto) 10.0-50.0 % Monocytes (%) (Auto) 0.0-12.0 % Basophils (%) (Auto) 0.0-2.0 % Neutrophils # (Auto) 1.6-8.6 10 ^3/uL Lymphocytes # (Auto) 0.4-5.4 10 ^3/uL Monocytes # (Auto) 0-1.3 10 ^3/uL Differential Total Cells Counted 100.0 100 Neutrophils % (Manual) 85 H 37.0-80.0 Band Neutrophils % (Manual) 2 Lymphocytes % (Manual) 4 L 10.0-50.0 Monocytes % (Manual) 7 0-12 Eosinophils % (Manual) 0 0-7 Basophils % (Manual) 0 0.0-2.0 Metamyelocytes % (manual) 2 Myelocytes % (Manual) 0 Promyelocytes % (Manual) 0 Blast Cells % (Manual) 0 Nucleated Red Blood Cells 1.0 % Reactive Lymphocytes 0 Platelet Estimate Increased Large Platelets Few Sodium Level 136 136-145 mmol/L Potassium Level 4.1 3.5-5.1 mmol/L Chloride Level 102 98-107 mmol/L Carbon Dioxide Level 25 20-31 mmol/L Anion Gap 9 5-15 Blood Urea Nitrogen 16 9-23 mg/dL Creatinine 0.62 0.550-1.02 mg/dL Glomerular Filtration Rate Calc 89 >90 mL/min BUN/Creatinine Ratio 25.8 H 10.0-20.0 Serum Glucose 110 H 74-106 mg/dL Calcium Level 9.5 8.7-10.4 mg/dL Influenza Type A Antigen Negative Negative Influenza Type B Antigen Negative Negative SARS-CoV-2 Antigen (Rapid) Negative NEGATIVE Urine Color Yellow Yellow Urine Clarity Clear Clear Urine pH 6.0 5.0-9.0 Urine Specific [place] > 1.035 H 1.001-1.035 Urine Protein Trace H Negative Urine Ketones Negative Negative Urine Blood Negative Negative /uL Urine Nitrite Negative Negative Urine Bilirubin Negative Negative Urine Urobilinogen 2 H Negative mg/dL Urine Leukocyte Esterase Negative Negative /uL Urine RBC 1 0 - 4 /hpf Urine Microscopic WBC 2 0-5 /HPF Urine Squamous Epithelial Cells None seen <5 /hpf Urine Bacteria None seen None Seen /hpf Urine Glucose Normal Normal mg/dL Urine Opiates Screen Pos NEGATIVE Urine Fentanyl Screen Neg NEGATIVE Urine Barbiturates Screen Neg NEGATIVE Urine Phencyclidine Screen Neg NEGATIVE Urine Amphetamines Screen Neg NEGATIVE Urine Benzodiazepines Screen Neg NEGATIVE Urine Cocaine Screen Neg NEGATIVE Urine Cannabinoids Screen Neg NEGATIVE Test 03/21/24 18:42 Range/Units Lactic Acid Level 1.4 0.4-2.0 mmol/L Magnesium Level 1.9 1.6-2.6 mg/dL Total Bilirubin 1.2 H 0.2-1.0 mg/dL Aspartate Amino Transferase (AST) 73 H 13-40 U/L Alanine Aminotransferase (ALT) 56 H 7-40 U/L Alkaline Phosphatase 252 H 46-116 U/L B-Type Natriuretic Peptide 631.40 0-100 pg/mL Total Protein 5.6 L 5.7-8.2 g/dL Albumin 3.4 3.2-4.8 g/dL Assessment Leukocytosis. Possible pneumonia. History of nephrectomy. CAD. Chest pain. Positive troponins suggestive Of myocardial ischemia. Possibly type 2 CA. noted history of PTCA and stenting to the left main and ostial RCA. Rule out progression of CAD. Plan/Recommendation We will continue with antibiotics however within 24-48 hours we will consider angiographic evaluation given recurrent chest pain and history of left main disease. Discussed with patient. Plan discussed with: Patient NYHA Physical activity limitations: Class2(Slight)fatigue,sob Date of Service: Mar 22, 2024 Billing Provider: YONY PLAZA Sr., MD Cardiology Common Codes: [id number] INP/OBS CARE (High) YONY PLAZA Sr., MD Mar 22, 2024 09:40
[2024-03-22] MEDS: AZITHROMYCIN 500MG/ 250ML 250 ML IV SCH (10:00)
[2024-03-22] MEDS: ASPirin 81 mg TAB PO SCH (11:29)
[2024-03-22] MEDS: ATORVASTATIN 20 MG TAB PO SCH (11:29)
[2024-03-22] MEDS: ENOXAPARIN SOD 100 MG/1 ML SYRINGE SC SCH (11:31)
[2024-03-22] MEDS ORDERED: ATOR-47 PO (12:46)
[2024-03-22] MEDS ORDERED: FENO134C16 PO (12:46)
[2024-03-22] MEDS ORDERED: ASPI-498 PO (12:46)
[2024-03-22] MEDS ORDERED: TRAM-626 PO (12:46)
[2024-03-22] MEDS ORDERED: ACYC1TAB2 PO (12:46)
[2024-03-22 13:53] LABS: Hepatitis B Surface Antigen Negative (Negative)
[2024-03-22 13:58] LABS: Hepatitis C Antibody Negative (Negative)
[2024-03-22] MEDS: cefTRIAXone 1GM/50ML D5W 50 ML IV SCH (18:35)
[2024-03-22] MEDS: BUDESONIDE (INHALATION) 0.5 MG/2 ML NEB NEB SCH (20:11)
[2024-03-22] MEDS: ALBUTEROL SULF 2.5 MG/0.5ML(0.5%) NEB SOLN NEB PRN (20:11)
--- NOTE | 2024-03-22 21:49 | DVHINCON2 ---
Date of service: Mar 22, 2024 Referring Physician Benjamin Hahn NP Reason for Consultation Acute hypoxic respiratory failure, pneumonia and COPD History of Present Illness An 84 year-old woman with past medical history of COPD, hyperlipidemia, AFib, hypertension, PCI with two stents in 2016, and renal carcinoma s/p left nephrectomy who was transferred from [facility] on 03/21/24 with elevated troponin and complaints of shortness of breath and chest pain over the previous 5 days. Chest pain was on the left side, non-radiating, 7/10. Patient does not use supplemental oxygen at home. She was recently diagnosed with pneumonia on 03/10/24. Pt reports her feet have been more swollen the last couple of days prior to presentation. In the ED, troponin was 167/173/158; BNP 631. Patient was requiring supplemental oxygen at 3 LNC to maintain sat 93%. No c/o fevers, chills, palpitations, nausea, vomiting, abdominal pain. Patient was admitted for further care and pulmonary consultation is requested for evaluation and management of acute hypoxic respiratory failure, pneumonia and COPD. Review of Systems: 14-point review of systems negative unless otherwise noted above. Past Medical History: COPD, hyperlipidemia, AFib, hypertension, PCI with 2 stents in 2016, and renal carcinoma s/p left nephrectomy Past Surgical History: PCI with 2 stents in 2016, s/p left nephrectomy. Medications: Reviewed. Allergies: No known drug allergies. Family History: Cardiovascular disease Social History: Nonsmoker. No alcohol or illicit drug use. Family History: Cardiovascular disease G8 FATHER Family history: Cardiovascular disease G8 FATHER Allergies: Coded Allergies: NO KNOWN ALLERGIES (Unverified , 09/27/14) Home Meds Reported Medications Clopidogrel Bisulfate (CLOPIDOGREL) 75 Mg Tab, 1 TAB PO DAILY for 90 Days, #90 03/23/24 Fenofibrate (Fenofibrate) 160 Mg Tab, 1 TAB PO DAILY for 90 Days, #90 03/23/24 Aspirin (ASPIRIN 81) 81 Mg Tab, 81 MG PO DAILY, TAB 03/22/24 Acyclovir (Acyclovir) 400 Mg Tab, 400 MG PO PRN, TAB 03/22/24 Tramadol HCl (Tramadol HCl) 50 Mg Tab, 50 MG PO PRN PRN for PAIN SCALE 1 THRU 6, TAB 03/22/24 Atorvastatin Calcium (ATORVASTATIN CALCIUM) 80 Mg Tab, 1 TAB PO DAILY, #30 TAB 5 Refills 03/22/24 Discontinued Reported Medications Fenofibrate Micronized (Fenofibrate) 134 Mg Cap, 160 MG PO BS, CAP 03/22/24 Tramadol Hcl (Tramadol Hcl) 50 Mg Tab, 50 MG PO BID, TAB 09/27/15 Hydrocodone-Acetaminophen ([place] 10/325MG) 1 Tab Tb, 1 TAB PO DAILY, #60 TAB 09/22/15 Acyclovir (ZOVIRAX TABLET) 400 Mg Tb, 1 TAB PO DAILY, #60 TAB 3 Refills 09/22/15 Simvastatin (Zocor) 40 Mg Tab, 1 TAB PO DAILY, #90 TAB 1 Refill 09/22/15 Acetaminophen W/ Codeine (Tylenol/Codeine #4) #4 Tab, 1 TAB PO QID, #60 TAB 10/01/14 Jeanxxq-Lzgjnoghi-[place] (CALCIUM MAGNESIUM & ZINC) Zinc Tab, 1 TAB OR DAILY, TAB 09/27/14 Multiple Vitamin (Multivitamins) Cap, 1 CAP PO DAILY, #30 CAP 3 Refills 09/27/14 Nmsqxsrzinq-Jxgekrretqo-Yat C- (Glucosamine Chondroitin 1) 1,500 Com Cap, 1500 MG OR DAILY, CAP 09/27/14 [place] 3 Fatty Acids-[place] 6 Fa (HM OMEGA-3-6-9 FATTY ACID) Cap, 1 CAP OR DAILY, CAP 09/27/14 Coenzyme Q10 (Ubidecarenone) (CO Q 10) 100 Mg Cap, 100 MG PO DAILY, CAP 09/27/14 Ginkgo Biloba Extract (Ginkoba) 40 Mg Tab, 120 MG PO DAILY, TAB 09/27/14 Flaxseed (Linseed) (Flaxseed Oil) 1,200 Mg Cap, 1200 MG PO DAILY, CAP 09/27/14 Cyanocobalamin (Vitamin B12) 1,000 Cr Tab, 1 TAB PO DAILY, #30 TAB 2 Refills 09/27/14 Cholecalciferol (VITAMIN D3) 3,000 Unit Tab, 6000 UNIT PO DAILY, TAB 09/27/14 Alpha Tocopheryl Acid Succinat (VITAMIN E) 400 Unit Tab, 1200 UNIT PO DAILY, TAB 09/27/14 Ascorbic Acid (VITAMIN C) 500 Mg Cap, 1000 MG PO DAILY, CAP 09/27/14 Ibuprofen (Ibuprofen) 800 Mg Tab, 1 TAB PO BID, #90 TAB 1 Refill 09/27/14 Furosemide (Lasix) 40 Mg Tab, 40 MG PO DAILY, TAB 09/27/14 Current Medications Current Medications Medications (Trade) Dose Ordered Sig/Rosa Route PRN Reason Start Time Stop Time Status Last Admin Docusate Sodium (Colace Capsule) 100 mg BIDPRN PRN PO FOR CONSTIPATION 03/21/24 22:45 Acetaminophen (Tylenol Tablet) 650 mg Q6HP PRN PO PAIN SCALE 1-3 OR TEMP>100.4 03/21/24 22:45 Acetaminophen/ Hydrocodone Bitart ([place] 5/325MG Tab) 1 tab Q6HP PRN PO MODERATE PAIN (4-6 PAIN SCALE) 03/21/24 22:45 Ondansetron HCl (Zofran) 4 mg Q4HP PRN IV NAUSEA / VOMITING 03/21/24 22:45 Morphine Sulfate 2 mg Q4HPRN PRN IV SEVERE PAIN (7-10 PAIN SCALE) 03/21/24 22:45 Nitroglycerin (Ntrostat Sublingual) 0.4 mg Q5MINP PRN SL FOR CHEST PAIN 03/21/24 22:45 Morphine Sulfate 2 mg Q30M PRN IV FOR CHEST PAIN 03/21/24 22:45 Aspirin 81 mg DAILY PO 03/22/24 10:00 03/22/24 11:29 Atorvastatin Calcium (Lipitor) 80 mg DAILY PO 03/22/24 10:00 03/22/24 11:29 Enoxaparin Sodium (Lovenox) 60 mg Q12HR SC 03/22/24 10:00 03/22/24 21:35 Azithromycin 250 ml @ 125 mls/hr DAILY IV 03/22/24 10:00 03/22/24 10:00 Ceftriaxone Sodium 50 ml @ 100 mls/hr Q24H IV 03/22/24 19:00 03/22/24 18:35 Albuterol (Ventolin Medneb) 2.5 mg Q6HR NEB 03/22/24 00:00 03/22/24 17:40 DC 03/22/24 11:37 Ipratropium [place] (Atrovent Medneb) 0.5 mg Q6HR NEB 03/22/24 00:00 03/22/24 20:11 Metoprolol Tartrate (Lopressor Tablet) 12.5 mg DAILY PO 03/21/24 22:45 03/22/24 11:30 Albuterol (Ventolin Medneb) 2.5 mg Q4H PRN NEB SHORTNESS OF BREATH 03/22/24 17:45 03/22/24 20:11 Budesonide (Pulmicort) 0.5 mg BID NEB 03/22/24 22:00 03/22/24 20:11 Vital Signs Vital Signs Date Time Temp Pulse Resp B/P (MAP) Pulse Ox O2 Delivery O2 Flow Rate FiO2 03/22/24 21:00 98.0 94 14 118/55 (76) 99 98.0 03/22/24 20:11 Nasal Cannula* 4 36 Physical Exam Gen.: Patient lying in bed in no apparent distress. On supplemental oxygen. Head: Normocephalic, atraumatic. Eyes: EOMI/PERRLA. Ears: Normal hearing. Normal anatomy. Neck/trachea: Trachea midline, supple. Nose: Normal external anatomy. Mouth: Moist mucous membranes. Chest: Decreased air entry bilaterally. No wheezing or rhonchi. Cardiovascular: Positive S1, positive S2. Regular rate and rhythm. Abdomen: Positive bowel sounds in all 4 quadrants. Soft, non-tender, non- distended. : Deferred. Rectal: Deferred. Skin: Warm, dry. Intact. Extremities: 2+ radial pulses bilaterally. No lower extremity edema. Neuro: Awake, alert, oriented x3. No gross motor or sensory deficits. Cranial nerves II through XII intact. Gait not assessed Labs/Diagnostic Data Labs Test 03/22/24 06:40 03/22/24 03:28 03/21/24 20:54 03/21/24 20:52 Range/Units Troponin I High Sensitivity 107 *H </=34 ng/L White Blood Count 24.1 #H 4.4-10.8 10^3/uL Red Blood Count 3.78 L 4.0-5.20 10^6/uL Hemoglobin 11.1 L 12.2-16.2 g/dL Hematocrit 32.7 L 36.0-46.0 % Mean Corpuscular Volume 86.5 80.0-100.0 fL Mean Corpuscular Hemoglobin 29.3 28.0-32.0 pg Mean Corpuscular Hemoglobin Concent 33.9 32.0-36.0 g/dL Red Cell Distribution Width 15.1 H 11.8-14.3 % Platelet Count 560 H 140-450 10^3/uL Mean Platelet Volume 7.0 6.9-10.8 fL Neutrophils (%) (Auto) 37.0-80.0 % Lymphocytes (%) (Auto) 10.0-50.0 % Monocytes (%) (Auto) 0.0-12.0 % Basophils (%) (Auto) 0.0-2.0 % Neutrophils # (Auto) 1.6-8.6 10 ^3/uL Lymphocytes # (Auto) 0.4-5.4 10 ^3/uL Monocytes # (Auto) 0-1.3 10 ^3/uL Differential Total Cells Counted 100.0 100 Neutrophils % (Manual) 85 H 37.0-80.0 Band Neutrophils % (Manual) 2 Lymphocytes % (Manual) 4 L 10.0-50.0 Monocytes % (Manual) 7 0-12 Eosinophils % (Manual) 0 0-7 Basophils % (Manual) 0 0.0-2.0 Metamyelocytes % (manual) 2 Myelocytes % (Manual) 0 Promyelocytes % (Manual) 0 Blast Cells % (Manual) 0 Nucleated Red Blood Cells 1.0 % Reactive Lymphocytes 0 Platelet Estimate Increased Large Platelets Few Sodium Level 136 136-145 mmol/L Potassium Level 4.1 3.5-5.1 mmol/L Chloride Level 102 98-107 mmol/L Carbon Dioxide Level 25 20-31 mmol/L Anion Gap 9 5-15 Blood Urea Nitrogen 16 9-23 mg/dL Creatinine 0.62 0.550-1.02 mg/dL Glomerular Filtration Rate Calc 89 >90 mL/min BUN/Creatinine Ratio 25.8 H 10.0-20.0 Serum Glucose 110 H 74-106 mg/dL Calcium Level 9.5 8.7-10.4 mg/dL Hepatitis B Surface Antigen Negative Negative Hepatitis C Antibody Negative Negative Influenza Type A Antigen Negative Negative Influenza Type B Antigen Negative Negative SARS-CoV-2 Antigen (Rapid) Negative NEGATIVE Urine Color Yellow Yellow Urine Clarity Clear Clear Urine pH 6.0 5.0-9.0 Urine Specific [place] > 1.035 H 1.001-1.035 Urine Protein Trace H Negative Urine Ketones Negative Negative Urine Blood Negative Negative /uL Urine Nitrite Negative Negative Urine Bilirubin Negative Negative Urine Urobilinogen 2 H Negative mg/dL Urine Leukocyte Esterase Negative Negative /uL Urine RBC 1 0 - 4 /hpf Urine Microscopic WBC 2 0-5 /HPF Urine Squamous Epithelial Cells None seen <5 /hpf Urine Bacteria None seen None Seen /hpf Urine Glucose Normal Normal mg/dL Urine Opiates Screen Pos NEGATIVE Urine Fentanyl Screen Neg NEGATIVE Urine Barbiturates Screen Neg NEGATIVE Urine Phencyclidine Screen Neg NEGATIVE Urine Amphetamines Screen Neg NEGATIVE Urine Benzodiazepines Screen Neg NEGATIVE Urine Cocaine Screen Neg NEGATIVE Urine Cannabinoids Screen Neg NEGATIVE Test 03/21/24 18:42 Range/Units Lactic Acid Level 1.4 0.4-2.0 mmol/L Magnesium Level 1.9 1.6-2.6 mg/dL Total Bilirubin 1.2 H 0.2-1.0 mg/dL Aspartate Amino Transferase (AST) 73 H 13-40 U/L Alanine Aminotransferase (ALT) 56 H 7-40 U/L Alkaline Phosphatase 252 H 46-116 U/L B-Type Natriuretic Peptide 631.40 0-100 pg/mL Total Protein 5.6 L 5.7-8.2 g/dL Albumin 3.4 3.2-4.8 g/dL Microbiology Date/Time Source Procedure Growth Status 03/21/24 18:42 Blood Blood Culture - Preliminary NO GROWTH AFTER 24 HOURS OF INCUBATION. Resulted Assessment Impression: Acute hypoxic respiratory failure Dependence on supplemental oxygen Pneumonia, likely gram negative COPD, not in exacerbation Coronary artery disease, s/p PCI Non-ST elevation myocardial infarction Plan: Supplemental oxygen 4 LPM NC Titrate to keep O2 sats above 92%. Taper O2 as tolerated. Continue bronchodilators. Continue antibiotics Send sputum cultures if able to produce Cardiology recs appreciated Monitor renal function. Monitor electrolytes. Supplement as necessary. Monitor ins and outs. DVT prophylaxis - SCDs. Prognosis: Poor given patient's multiple co-morbidities. Rest of plan per hospitalist and other consultants. Thank you, JUAN Hahn, for allowing me to participate in this patient's care. Further recommendations will depend on the patient's clinical course. Please do not hesitate to contact me if you have any questions or concerns. This medical document was created using an electronic medical record system with [employer] system. Although these documentations are being carefully reviewed, there may still be some phonetic and typographical changes. The errors are purely typographical, due to imperfection on the software program, and do not reflect any compromise in the patient's medical care. Plan discussed with: Patient, Other (SAILAJA Marie/JUAN Hahn/) SONJA SHARPE MD Mar 22, 2024 21:49
[2024-03-23] VITALS (17 sets, daily range): BP systolic 97–126; BP diastolic 53–72; PULSE 88–115; RESP 13–20; TEMP 96.5–98.3; O2SAT 91–98
[2024-03-23 07:09] LABS: Basophils # (auto) 0.1 10 ^3/uL (0-0.2); Basophils % (auto) 0.3 % (0.0-2.0); Eosinophils # (auto) 0.1 10 ^3/uL (0-0.8); Eosinophils % (auto) 0.4 % (0.0-7.0); Hemoglobin 10.9 g/dL (12.2-16.2); Lymphocytes # (auto) 1.4 10 ^3/uL (0.4-5.4); Mean Corpuscular Hemoglobin 28.8 pg (28.0-32.0); Mean Corpuscular Hgb Conc. 32.9 g/dL (32.0-36.0); Mean Corpuscular Volume 87.5 fL (80.0-100.0); Monocytes # (auto) 1.5 10 ^3/uL (0-1.3); Monocytes % (auto) 7.5 % (0.0-12.0); Neutrophils # (auto) 16.7 10 ^3/uL (1.6-8.6); Neutrophils % (auto) 84.8 % (37.0-80.0); Red Blood Cells 3.77 10^6/uL (4.0-5.20); Red Cell Distribution Width 15.3 % (11.8-14.3); White Blood Cell 19.7 10^3/uL (4.4-10.8)
[2024-03-23 07:10] LABS: Platelet Count (auto) 568 10^3/uL (140-450)
[2024-03-23 07:13] LABS: Anion Gap 7 (5-15); Carbon Dioxide 28 mmol/L (20-31); Chloride 101 mmol/L (98-107); Potassium 4.8 mmol/L (3.5-5.1)
[2024-03-23 07:15] LABS: Calcium 8.7 mg/dL (8.7-10.4)
[2024-03-23 07:16] LABS: Sodium 136 mmol/L (136-145)
[2024-03-23 07:19] LABS: Glucose 95 mg/dL (74-106)
[2024-03-23 07:20] LABS: BUN/Creatinine Ratio 21.9 (10.0-20.0); Blood Urea Nitrogen 14 mg/dL (9-23)
[2024-03-23] MEDS: ACETAMINOPHEN 325 MG TAB PO PRN (10:41)
[2024-03-23] MEDS ORDERED: FENO160T PO (11:20)
--- NOTE | 2024-03-23 17:05 | DVHPN2 ---
Progress Note - Dictate Date Seen: Mar 23, 2024 Medical Necessity Reason Pt with a Central, PICC or Fol: No Subjective Comfortable in bed. Denies any chest pain or shortness for breath. Evaluated by Cardiology and pulmonology. vital signs Vital Sign Date Time Temp Pulse Resp B/P (MAP) Pulse Ox O2 Delivery O2 Flow Rate FiO2 03/23/24 13:00 97.5 108 16 99/53 (68) 95 97.5 03/23/24 12:01 Nasal Cannula* 3 32 Total Intake and Output 03/22/24 03/22/24 03/23/24 15:00 23:00 07:00 Intake Total 240 ml 770 ml 300 ml Output Total 0 ml Balance 240 ml 770 ml 300 ml medications Current Medications Medications Dose Ordered Sig/Rosa Route Start Time Stop Time Status Last Admin Dose Admin Docusate Sodium 100 mg BIDPRN PRN PO 03/21/24 22:45 Acetaminophen 650 mg Q6HP PRN PO 03/21/24 22:45 03/23/24 10:41 650 MG Acetaminophen/ Hydrocodone Bitart 1 tab Q6HP PRN PO 03/21/24 22:45 Ondansetron HCl 4 mg Q4HP PRN IV 03/21/24 22:45 Morphine Sulfate 2 mg Q4HPRN PRN IV 03/21/24 22:45 Nitroglycerin 0.4 mg Q5MINP PRN SL 03/21/24 22:45 Morphine Sulfate 2 mg Q30M PRN IV 03/21/24 22:45 Aspirin 81 mg DAILY PO 03/22/24 10:00 03/23/24 10:26 81 MG Atorvastatin Calcium 80 mg DAILY PO 03/22/24 10:00 03/23/24 10:25 80 MG Enoxaparin Sodium 60 mg Q12HR SC 03/22/24 10:00 03/23/24 10:27 60 MG Azithromycin 250 ml @ 125 mls/hr DAILY IV 03/22/24 10:00 03/23/24 10:29 125 MLS/HR Ceftriaxone Sodium 50 ml @ 100 mls/hr Q24H IV 03/22/24 19:00 03/22/24 18:35 100 MLS/HR Ipratropium [place] 0.5 mg Q6HR NEB 03/22/24 00:00 03/23/24 12:01 0.5 MG Metoprolol Tartrate 12.5 mg DAILY PO 03/21/24 22:45 03/22/24 11:30 12.5 MG Albuterol 2.5 mg Q4H PRN NEB 03/22/24 17:45 03/23/24 12:01 2.5 MG Budesonide 0.5 mg BID NEB 03/22/24 22:00 03/23/24 08:11 0.5 MG objective Alert awake oriented x3. HEENT neck supple no JVD. Heart regular rate and rhythm S1-S2. Lungs fair air movement with a degraded breath sounds in the bases. Abdomen soft nontender positive bowel sounds. Extremities no edema. laboratory and microbiology Laboratory Tests 03/23/24 06:17 Test 03/23/24 06:17 Range/Units Serum Glucose 95 74-106 mg/dL Assessment/Plan To continue present management as she is on. Further clinical management per clinical course and recommendations from the case loader operator. Discussed with the nurse regarding care plan. Problems(with codes): (1) Intermediate coronary syndrome (2) Atrial fibrillation (3) Pneumonia Plan discussed with: ARNOL Torres MD Mar 23, 2024 17:05
[2024-03-23] MEDS: KETOROLAC TROMETH 30 MG/ML 1ML VIAL IV PRN (18:49)
--- NOTE | 2024-03-23 22:33 | DVHPN2 ---
Progress Note - Dictate Date Seen: Mar 23, 2024 Medical Necessity Reason Pt with a Central, PICC or Fol: No Subjective Patient seen and examined at bedside. Remains on supplemental oxygen Overnight events reviewed. vital signs Vital Sign Date Time Temp Pulse Resp B/P (MAP) Pulse Ox O2 Delivery O2 Flow Rate FiO2 03/23/24 21:00 97.5 111 16 126/57 (80) 98 97.5 03/23/24 20:00 Nasal Cannula* 3 32 Total Intake and Output 03/22/24 03/22/24 03/23/24 15:00 23:00 07:00 Intake Total 240 ml 770 ml 300 ml Output Total 0 ml Balance 240 ml 770 ml 300 ml medications Current Medications Medications Dose Ordered Sig/Rosa Route Start Time Stop Time Status Last Admin Dose Admin Docusate Sodium 100 mg BIDPRN PRN PO 03/21/24 22:45 Acetaminophen 650 mg Q6HP PRN PO 03/21/24 22:45 03/23/24 10:41 650 MG Acetaminophen/ Hydrocodone Bitart 1 tab Q6HP PRN PO 03/21/24 22:45 Hold Ondansetron HCl 4 mg Q4HP PRN IV 03/21/24 22:45 Morphine Sulfate 2 mg Q4HPRN PRN IV 03/21/24 22:45 Nitroglycerin 0.4 mg Q5MINP PRN SL 03/21/24 22:45 Morphine Sulfate 2 mg Q30M PRN IV 03/21/24 22:45 Aspirin 81 mg DAILY PO 03/22/24 10:00 03/23/24 10:26 81 MG Atorvastatin Calcium 80 mg DAILY PO 03/22/24 10:00 03/23/24 10:25 80 MG Enoxaparin Sodium 60 mg Q12HR SC 03/22/24 10:00 03/23/24 20:51 60 MG Azithromycin 250 ml @ 125 mls/hr DAILY IV 03/22/24 10:00 03/23/24 10:29 125 MLS/HR Ceftriaxone Sodium 50 ml @ 100 mls/hr Q24H IV 03/22/24 19:00 03/23/24 18:48 100 MLS/HR Ipratropium [place] 0.5 mg Q6HR NEB 03/22/24 00:00 03/23/24 19:19 0.5 MG Metoprolol Tartrate 12.5 mg DAILY PO 03/21/24 22:45 03/22/24 11:30 12.5 MG Budesonide 0.5 mg BID NEB 03/22/24 22:00 03/23/24 19:19 0.5 MG Ketorolac Tromethamine 15 mg Q6HPRN PRN IV 03/23/24 18:45 03/28/24 18:44 03/23/24 18:49 15 MG Albuterol 2.5 mg Q6HP NEB 03/23/24 21:45 objective Gen.: Patient lying in bed in no apparent distress. On supplemental oxygen. Head: Normocephalic, atraumatic. Eyes: EOMI/PERRLA. Ears: Normal hearing. Normal anatomy. Neck/trachea: Trachea midline, supple. Nose: Normal external anatomy. Mouth: Moist mucous membranes. Chest: Decreased air entry bilaterally. No wheezing or rhonchi. Cardiovascular: Positive S1, positive S2. Regular rate and rhythm. Abdomen: Positive bowel sounds in all 4 quadrants. Soft, non-tender, non- distended. : Deferred. Rectal: Deferred. Skin: Warm, dry. Intact. Extremities: 2+ radial pulses bilaterally. No lower extremity edema. Neuro: Awake, alert, oriented x3. No gross motor or sensory deficits. Cranial nerves II through XII intact. Gait not assessed. laboratory and microbiology Laboratory Tests 03/23/24 06:17 Test 03/23/24 06:17 Range/Units Serum Glucose 95 74-106 mg/dL Assessment/Plan Impression: Acute hypoxic respiratory failure Dependence on supplemental oxygen Pneumonia, likely gram negative COPD, not in exacerbation Coronary artery disease, s/p PCI Non-ST elevation myocardial infarction Events: Remains on supplemental oxygen, 3 LPM NC Taper O2 as tolerated Continue bronchodilators Continue antibiotics Incentive spirometry Follow up Echocardiogram Follow up Cardiology recommendations Labs and imaging reviewed. Rest of plan as noted below. Plan: Supplemental oxygen Titrate to keep O2 sats above 92%. Continue bronchodilators. Continue antibiotics Send sputum cultures if able to produce Monitor renal function. Monitor electrolytes. Supplement as necessary. Monitor ins and outs. DVT prophylaxis - SCDs. Prognosis: Poor given patient's multiple co-morbidities. Rest of plan per hospitalist and other consultants. Thank you, JUAN Hahn, for allowing me to participate in this patient's care. Further recommendations will depend on the patient's clinical course. Please do not hesitate to contact me if you have any questions or concerns. This medical document was created using an electronic medical record system with [employer] dictation system. Although these documentations are being carefully reviewed, there may still be some phonetic and typographical changes. The errors are purely typographical, due to imperfection on the software program, and do not reflect any compromise in the patient's medical care. Plan discussed with: Patient, Other (SAILAJA Gan) SONJA SHARPE MD Mar 23, 2024 22:33
[2024-03-24] VITALS (21 sets, daily range): BP systolic 106–154; BP diastolic 58–95; PULSE 92–116; RESP 16–22; TEMP 97.5–98.1; O2SAT 90–100
[2024-03-24] MEDS: ALBUTEROL SULF 2.5 MG/0.5ML(0.5%) NEB SOLN NEB SCH
[2024-03-24 06:48] LABS: Basophils # (auto) 0 10 ^3/uL (0-0.2); Eosinophils # (auto) 0.1 10 ^3/uL (0-0.8); Eosinophils % (auto) 0.8 % (0.0-7.0); Mean Corpuscular Hgb Conc. 33.3 g/dL (32.0-36.0); Red Blood Cells 3.46 10^6/uL (4.0-5.20)
[2024-03-24 06:52] LABS: Basophils % (auto) 0.3 % (0.0-2.0); Hematocrit 30.2 % (36.0-46.0); Lymphocytes # (auto) 1.6 10 ^3/uL (0.4-5.4); Lymphocytes % (auto) 9.8 % (10.0-50.0); Mean Corpuscular Volume 87.3 fL (80.0-100.0); Monocytes # (auto) 1.2 10 ^3/uL (0-1.3); Monocytes % (auto) 7.6 % (0.0-12.0); Neutrophils # (auto) 13.2 10 ^3/uL (1.6-8.6); Neutrophils % (auto) 81.5 % (37.0-80.0); Platelet Count (auto) 560 10^3/uL (140-450); Red Cell Distribution Width 15.1 % (11.8-14.3); White Blood Cell 16.2 10^3/uL (4.4-10.8)
[2024-03-24 07:00] LABS: Chloride 102 mmol/L (98-107); Potassium 4.3 mmol/L (3.5-5.1)
[2024-03-24 07:01] LABS: Anion Gap 7 (5-15); Calcium 9.2 mg/dL (8.7-10.4); Carbon Dioxide 26 mmol/L (20-31)
[2024-03-24 07:06] LABS: Blood Urea Nitrogen 17 mg/dL (9-23); Glucose 89 mg/dL (74-106)
[2024-03-24 07:11] LABS: Sodium 135 mmol/L (136-145)
[2024-03-24] MEDS: HEPARIN IN NS 1000Units/500mL 1,500 ML ONE (07:42)
[2024-03-24] MEDS: IODIXANOL 320MG/ML 100ML BTL IV ONE ×2 (07:42→10:14)
[2024-03-24] MEDS: HEPARIN SODIUM (PORCINE) 5000 UNITS/ML 1ML VIAL ONE (08:54)
[2024-03-24] MEDS: VERAPAMIL 2.5MG/ML INJ 2ML VIAL IV ONE (08:54)
[2024-03-24] MEDS: ANGIOMAX 250 MG VIAL IV ONE (08:54)
[2024-03-24] MEDS: SODIUM CHL 0.9% 50 ML ONE (08:55)
[2024-03-24] MEDS: MIDAZOLAM HCL 2MG/2ML 2ml VIAL (1mg/ml) ONE (08:55)
[2024-03-24] MEDS: LIDOCAINE 2%HCL (LOCAL ANESTH.) INJ 20ML MDV ONE (08:55)
[2024-03-24] MEDS: fentaNYL CITRATE 100 MCG/2 ML VL ONE (08:55)
--- NOTE | 2024-03-24 10:13 | DVHOP2 ---
Operative Report - 2 Report Details Date: 03/24/24 Preop Diagnosis: CAD Postop Diagnosis: Coronary artery disease. Stenosis of the ostial RCA Surgeon: Yony Mg MD Anesthesiologist: Conscious sedation Anesthesia: Mac, Local Consent: The patient was informed of the risks and benefits of the procedure. These include but are not limited to complications of anesthesia, postoperative infection, incomplete relief of symptoms, recurrence of symptoms, damage to blood vessels, nerves and tendons, deep venous thrombosis, pulmonary embolism and possible need for repeat surgery in the future. Complications: No complications Estimated Blood Loss: 3 cc Findings: Restenosis of proximal/ostial RCA Indications for Surgery: Chest pain. Name of Procedure Performed Bilateral Ca coronary angiography. Left ventriculography. PTCA and stenting of the RCA. Lithotripsy /intravascular lithotripsy of proximal RCA and stenting of RCA. Procedure Details Procedure Details: Prior local anesthesia with 2% lidocaine to the right wrist and full informed consent obtained the patient was prepped and draped in usual fashion followed by placement of a six German sheath into the right radial artery through which a JR4 catheter was used to cannulate the RCA and a JL3 five was used to cannulate the left main. A Satya catheter was used for ventriculography without complications. A JR4 guide was then used for angioplasty as well as an intravascular Lithotripsy balloon by shockwave for lithotripsy therapy. no complications. Hemodynamics aortic blood pressure was 120/70 end-diastolic pressure was 16 gradient across the aortic valve on pullback. Coronary anatomy the RCA has notable in stent restenosis of the proximal segment with a 95% lesion of the proximal / ostial RCA. The mid and distal segments have moderate plaquing without critical disease. Left main is a medium caliber vessel. There is mild in stent restenosis. No critical lesions in the left main. The LAD is a medium vessel is normal in its proximal mid and distal segments. Diagonals and septals are free of significant disease. The circumflex is large with two marginals free of significant disease. Ventriculography in the HOANG projection shows an EF of 50%. Angioplasty was performed for which a JL4 guide was then placed. A Specter wire was placed across the area of stenosis and a a shockwave intravascular lithotripsy balloon was placed. This was a two 5 x 12. Approximately 10 treatments were given to the proximal and ostial RCA segments. There was successful balloon dilatation post treatment. A 2.5 mm x 12 mm stent was plac ed this was a Medtronic drug-eluting stent. Post dilated to 20 atmospheres. There was excellent antegrade flow without thrombus formation no dissection. Impression: Successful PTCA and stenting intravascular lithotripsy of the proximal RCA. Normal end-diastolic pressures. Normal ejection fraction. Recommendation: Continue dual antiplatelet therapy. Follow up in 4-6 weeks as an outpatient. we will continue aspirin for one as well as Plavix and Eliquis to be ongoing Condition Good Disposition Home Date of Service: Mar 24, 2024 Billing Provider: YONY MG Sr., MD Cardiology Common Codes: 61974-LGWJOQC INP/OBS CARE (High), 96894-JVF/OBS SAME DATE (High) Cardiology Procedure Codes: 37620 -PTCA W/STENT PLACEMENT, 11632-R/R & L HEART CATH FOR LVG YONY MG Sr., MD Mar 24, 2024 10:13
[2024-03-24] MEDS: CLOPIDOGREL BISULFATE 75 MG TAB ONE (10:15)
--- NOTE | 2024-03-24 15:05 | DVHPN2 ---
Progress Note - Dictate Date Seen: Mar 24, 2024 Medical Necessity Reason Pt with a Central, PICC or Fol: No Subjective Comfortable in bed. Denies any chest pain or shortness for breath. Patient had coronary angiogram with a cardiac stent placement today. She feels better. No complaints. vital signs Vital Sign Date Time Temp Pulse Resp B/P (MAP) Pulse Ox O2 Delivery O2 Flow Rate FiO2 03/24/24 12:03 93 18 98 03/24/24 11:57 Nasal Cannula* 3 32 03/24/24 08:42 97.8 135/78 (97) 97.8 Total Intake and Output 03/23/24 03/23/24 03/24/24 15:00 23:00 07:00 Intake Total 250 ml 626 ml 1236 ml Balance 250 ml 626 ml 1236 ml medications Current Medications Medications Dose Ordered Sig/Rosa Route Start Time Stop Time Status Last Admin Dose Admin Docusate Sodium 100 mg BIDPRN PRN PO 03/21/24 22:45 Acetaminophen 650 mg Q6HP PRN PO 03/21/24 22:45 03/24/24 11:06 650 MG Acetaminophen/ Hydrocodone Bitart 1 tab Q6HP PRN PO 03/21/24 22:45 Hold Ondansetron HCl 4 mg Q4HP PRN IV 03/21/24 22:45 Morphine Sulfate 2 mg Q4HPRN PRN IV 03/21/24 22:45 Nitroglycerin 0.4 mg Q5MINP PRN SL 03/21/24 22:45 Morphine Sulfate 2 mg Q30M PRN IV 03/21/24 22:45 Aspirin 81 mg DAILY PO 03/22/24 10:00 03/23/24 10:26 81 MG Atorvastatin Calcium 80 mg DAILY PO 03/22/24 10:00 03/23/24 10:25 80 MG Enoxaparin Sodium 60 mg Q12HR SC 03/22/24 10:00 03/23/24 20:51 60 MG Azithromycin 250 ml @ 125 mls/hr DAILY IV 03/22/24 10:00 03/23/24 10:29 125 MLS/HR Ceftriaxone Sodium 50 ml @ 100 mls/hr Q24H IV 03/22/24 19:00 03/23/24 18:48 100 MLS/HR Ipratropium [place] 0.5 mg Q6HR NEB 03/22/24 00:00 03/24/24 11:57 0.5 MG Metoprolol Tartrate 12.5 mg DAILY PO 03/21/24 22:45 03/22/24 11:30 12.5 MG Budesonide 0.5 mg BID NEB 03/22/24 22:00 03/24/24 06:57 0.5 MG Ketorolac Tromethamine 15 mg Q6HPRN PRN IV 03/23/24 18:45 03/28/24 18:44 03/23/24 18:49 15 MG Albuterol 2.5 mg Q6HP NEB 03/23/24 21:45 03/24/24 11:57 2.5 MG Clopidogrel Bisulfate 75 mg DAILY PO 03/25/24 10:00 objective Alert awake oriented x3. HEENT neck supple no JVD. Heart regular rate and rhythm S1-S2. Lungs fair air movement with a degraded breath sounds in the bases. Abdomen soft nontender positive bowel sounds. Extremities no edema. laboratory and microbiology Laboratory Tests 03/24/24 06:07 Test 03/24/24 06:07 Range/Units Serum Glucose 89 74-106 mg/dL Assessment/Plan To continue dual platelet therapy for her coronary artery disease with stent placement which is discussed with the patient. Physical therapy evaluation to up and ambulate. Patient lives alone. Depending on nurse physical therapy evaluation and recommendation, if patient would benefit from possible fdc facility for brief period of time for physical therapy and we will also arrange for 2 L of oxygen via nasal cannula. Patient verbalized understanding of this and agree with the care plan at present. Problems(with codes): (1) Pneumonia (2) Atrial fibrillation (3) Intermediate coronary syndrome Plan discussed with: Other ARNOL ADAMS MD Mar 24, 2024 15:05
--- NOTE | 2024-03-24 15:35 | DVHSR ---
APPROVED REPORT EXAM: Two-dimensional and M-mode echocardiogram with Doppler and color Doppler. Blood Pressure: 109/97 mmHg INDICATION Eval [place] RISK FACTORS Height: 65, Weight: 140 DIMENSIONS LVDd4.3 (3.8-5.7cm)LA (2D)3.3 (1.9-4.0cm)Aortic Root3.2 (2.0-3.7cm) LVDs3.2 (2.5-4.0cm)LA (MM) (1.9-4.0cm)Aortic Cusp Exc1.5 (1.5-2.0cm) EF (%) 50.0 (55-70%)Rt. Atrium3.7 (1.9-4.0cm)Asc. Aorta cm IVSd1.2 (0.7-1.1cm)RV (D) (1.8-2.4cm) PWd1.2 (0.7-1.1cm) Mitral Valve MitralMitral Stenosis E wave1.13m/sMV Mean GR.4mmHg A wavem/sMV Peak GR.138mmHg E/A ratio0.02D MVAcm2 Aortic Valve Aortic ValveAortic Stenosis V10.85m/Willy Mean GR.8mmHg V22.10m/Willy Peak GR.18mmHg LVOT Diameter1.8 (1.8-2.4cm)Doppler AVA1.03cm2 Pulmonic Valve V20.74m/s Tricuspid Valve TR Velocity2.57m/s [id number] Other Information Technically limited study due to patient position. Patient was moving and non compliant during exam. Conclusion Technically good study. Atrial fibrillation. Concentric LVH with left atrial enlargement. Valves appear to be structurally normal. EF of 55% with normal RV function. Juqj-ry-nuqbjupx mitral insufficiency. Ekoh-rq-pesumxsm tricuspid insufficiency. No pericardial effusion masses or vegetations.
[2024-03-24] MEDS: DIGOXIN (250MCG/ML) 2 ML AMPULE IV ONE (19:39)
--- NOTE | 2024-03-24 23:50 | DVHPN2 ---
Progress Note - Dictate Date Seen: Mar 24, 2024 Medical Necessity Reason Pt with a Central, PICC or Fol: No Subjective Patient seen and examined at bedside. Remains on supplemental oxygen Overnight events reviewed. vital signs Vital Sign Date Time Temp Pulse Resp B/P (MAP) Pulse Ox O2 Delivery O2 Flow Rate FiO2 03/24/24 21:00 98.0 100 18 130/70 (90) 95 98.0 03/24/24 20:00 Nasal Cannula* 3 32 Total Intake and Output 03/23/24 03/23/24 03/24/24 15:00 23:00 07:00 Intake Total 250 ml 626 ml 1236 ml Balance 250 ml 626 ml 1236 ml medications Current Medications Medications Dose Ordered Sig/Rosa Route Start Time Stop Time Status Last Admin Dose Admin Docusate Sodium 100 mg BIDPRN PRN PO 03/21/24 22:45 Acetaminophen 650 mg Q6HP PRN PO 03/21/24 22:45 03/24/24 11:06 650 MG Acetaminophen/ Hydrocodone Bitart 1 tab Q6HP PRN PO 03/21/24 22:45 Hold Ondansetron HCl 4 mg Q4HP PRN IV 03/21/24 22:45 Morphine Sulfate 2 mg Q4HPRN PRN IV 03/21/24 22:45 Nitroglycerin 0.4 mg Q5MINP PRN SL 03/21/24 22:45 Morphine Sulfate 2 mg Q30M PRN IV 03/21/24 22:45 Aspirin 81 mg DAILY PO 03/22/24 10:00 03/23/24 10:26 81 MG Atorvastatin Calcium 80 mg DAILY PO 03/22/24 10:00 03/23/24 10:25 80 MG Enoxaparin Sodium 60 mg Q12HR SC 03/22/24 10:00 03/24/24 21:01 60 MG Azithromycin 250 ml @ 125 mls/hr DAILY IV 03/22/24 10:00 03/23/24 10:29 125 MLS/HR Ceftriaxone Sodium 50 ml @ 100 mls/hr Q24H IV 03/22/24 19:00 03/24/24 18:59 100 MLS/HR Ipratropium [place] 0.5 mg Q6HR NEB 03/22/24 00:00 03/24/24 19:13 0.5 MG Metoprolol Tartrate 12.5 mg DAILY PO 03/21/24 22:45 03/22/24 11:30 12.5 MG Budesonide 0.5 mg BID NEB 03/22/24 22:00 03/24/24 19:13 0.5 MG Ketorolac Tromethamine 15 mg Q6HPRN PRN IV 03/23/24 18:45 03/28/24 18:44 03/23/24 18:49 15 MG Albuterol 2.5 mg Q6HP NEB 03/23/24 21:45 03/24/24 19:15 2.5 MG Clopidogrel Bisulfate 75 mg DAILY PO 03/25/24 10:00 Diltiazem HCl 240 mg DAILY PO 03/25/24 10:00 objective Gen.: Patient lying in bed in no apparent distress. On supplemental oxygen. Head: Normocephalic, atraumatic. Eyes: EOMI/PERRLA. Ears: Normal hearing. Normal anatomy. Neck/trachea: Trachea midline, supple. Nose: Normal external anatomy. Mouth: Moist mucous membranes. Chest: Decreased air entry bilaterally. No wheezing or rhonchi. Cardiovascular: Positive S1, positive S2. Regular rate and rhythm. Abdomen: Positive bowel sounds in all 4 quadrants. Soft, non-tender, non- distended. : Deferred. Rectal: Deferred. Skin: Warm, dry. Intact. Extremities: 2+ radial pulses bilaterally. No lower extremity edema. Neuro: Awake, alert, oriented x3. No gross motor or sensory deficits. Cranial nerves II through XII intact. Gait not assessed. laboratory and microbiology Laboratory Tests 03/24/24 06:07 Test 03/24/24 06:07 Range/Units Serum Glucose 89 74-106 mg/dL Assessment/Plan Impression: Acute hypoxic respiratory failure Dependence on supplemental oxygen Pneumonia, likely gram negative COPD, not in exacerbation Coronary artery disease, s/p PCI Non-ST elevation myocardial infarction Events: Remains on supplemental oxygen, 2 LPM NC Taper O2 as tolerated AFib with RVR - follow up Cardiology recs Continue bronchodilators Continue antibiotics Incentive spirometry Physical therapy. CAD - s/p stent. Cardiology recommendations appreciated Labs and imaging reviewed. Rest of plan as noted below. Plan: Supplemental oxygen Titrate to keep O2 sats above 92%. Continue bronchodilators. Continue antibiotics Send sputum cultures if able to produce Monitor renal function. Monitor electrolytes. Supplement as necessary. Monitor ins and outs. DVT prophylaxis - SCDs. Prognosis: Poor given patient's multiple co-morbidities. Rest of plan per hospitalist and other consultants. Thank you, JUAN Hahn, for allowing me to participate in this patient's care. Further recommendations will depend on the patient's clinical course. Please do not hesitate to contact me if you have any questions or concerns. This medical document was created using an electronic medical record system with [employer] dictation system. Although these documentations are being carefully reviewed, there may still be some phonetic and typographical changes. The errors are purely typographical, due to imperfection on the software program, and do not reflect any compromise in the patient's medical care. Plan discussed with: Patient, Other (SAILAJA Gan) SONJA SHARPE MD Mar 24, 2024 23:50
[2024-03-25] VITALS (17 sets, daily range): BP systolic 108–130; BP diastolic 62–75; PULSE 75–102; RESP 16–21; TEMP 36.7; O2SAT 92–99
[2024-03-25 06:35] LABS: Basophils # (auto) 0 10 ^3/uL (0-0.2); Basophils % (auto) 0.3 % (0.0-2.0); Eosinophils # (auto) 0.1 10 ^3/uL (0-0.8); Eosinophils % (auto) 0.8 % (0.0-7.0); Hematocrit 33.6 % (36.0-46.0); Hemoglobin 10.8 g/dL (12.2-16.2); Lymphocytes # (auto) 1.5 10 ^3/uL (0.4-5.4); Lymphocytes % (auto) 9.9 % (10.0-50.0); Mean Corpuscular Hemoglobin 28.5 pg (28.0-32.0); Mean Corpuscular Hgb Conc. 32.2 g/dL (32.0-36.0); Mean Corpuscular Volume 88.4 fL (80.0-100.0); Monocytes # (auto) 1.2 10 ^3/uL (0-1.3); Neutrophils # (auto) 12.6 10 ^3/uL (1.6-8.6); Platelet Count (auto) 596 10^3/uL (140-450); Red Cell Distribution Width 15.7 % (11.8-14.3); White Blood Cell 15.5 10^3/uL (4.4-10.8)
[2024-03-25 06:47] LABS: Anion Gap 6 (5-15); Carbon Dioxide 27 mmol/L (20-31); Chloride 105 mmol/L (98-107); Potassium 4.7 mmol/L (3.5-5.1); Sodium 138 mmol/L (136-145)
[2024-03-25 06:48] LABS: Calcium 9.2 mg/dL (8.7-10.4)
[2024-03-25 06:53] LABS: BUN/Creatinine Ratio 12.9 (10.0-20.0); Glucose 85 mg/dL (74-106)
[2024-03-25 06:56] LABS: Blood Urea Nitrogen 8 mg/dL (9-23)
[2024-03-25] MEDS: CLOPIDOGREL BISULFATE 75 MG TAB PO SCH (09:27)
[2024-03-25] MEDS: dilTIAZem 120MG ER CAP PO SCH (09:27)
--- NOTE | 2024-03-25 14:12 | DVHDS2 ---
Discharge Summary Date of Admission Mar 21, 2024 at 23:03 Date of Discharge: Mar 25, 2024 Labs/Diagnostic Data: Laboratory Results Test 03/25/24 06:08 03/23/24 06:17 03/22/24 03:28 03/21/24 20:54 White Blood Count 15.5 10^3/uL (4.4-10.8) Red Blood Count 3.80 10^6/uL (4.0-5.20) Hemoglobin 10.8 g/dL (12.2-16.2) Hematocrit 33.6 % (36.0-46.0) Mean Corpuscular Volume 88.4 fL (80.0-100.0) Mean Corpuscular Hemoglobin 28.5 pg (28.0-32.0) Mean Corpuscular Hemoglobin Concent 32.2 g/dL (32.0-36.0) Red Cell Distribution Width 15.7 % (11.8-14.3) Platelet Count 596 10^3/uL (140-450) Mean Platelet Volume 7.0 fL (6.9-10.8) Neutrophils (%) (Auto) 81.0 % (37.0-80.0) Lymphocytes (%) (Auto) 9.9 % (10.0-50.0) Monocytes (%) (Auto) 8.0 % (0.0-12.0) Eosinophils (%) (Auto) 0.8 % (0.0-7.0) Basophils (%) (Auto) 0.3 % (0.0-2.0) Neutrophils # (Auto) 12.6 10 ^3/uL (1.6-8.6) Lymphocytes # (Auto) 1.5 10 ^3/uL (0.4-5.4) Monocytes # (Auto) 1.2 10 ^3/uL (0-1.3) Eosinophils # (Auto) 0.1 10 ^3/uL (0-0.8) Basophils # (Auto) 0 10 ^3/uL (0-0.2) Nucleated Red Blood Cells 0.0 % Sodium Level 138 mmol/L (136-145) Potassium Level 4.7 mmol/L (3.5-5.1) Chloride Level 105 mmol/L (98-107) Carbon Dioxide Level 27 mmol/L (20-31) Anion Gap 6 (5-15) Blood Urea Nitrogen 8 mg/dL (9-23) Creatinine 0.62 mg/dL (0.550-1.02) Glomerular Filtration Rate Calc 89 mL/min (>90) BUN/Creatinine Ratio 12.9 (10.0-20.0) Serum Glucose 85 mg/dL (74-106) Calcium Level 9.2 mg/dL (8.7-10.4) Troponin I High Sensitivity 53 ng/L (</=34) Differential Total Cells Counted 100.0 (100) Neutrophils % (Manual) 85 (37.0-80.0) Band Neutrophils % (Manual) 2 Lymphocytes % (Manual) 4 (10.0-50.0) Monocytes % (Manual) 7 (0-12) Eosinophils % (Manual) 0 (0-7) Basophils % (Manual) 0 (0.0-2.0) Metamyelocytes % (manual) 2 Myelocytes % (Manual) 0 Promyelocytes % (Manual) 0 Blast Cells % (Manual) 0 Reactive Lymphocytes 0 Platelet Estimate Increased Large Platelets Few Hepatitis B Surface Antigen Negative (Negative) Hepatitis C Antibody Negative (Negative) Influenza Type A Antigen Negative (Negative) Influenza Type B Antigen Negative (Negative) SARS-CoV-2 Antigen (Rapid) Negative (NEGATIVE) Test 03/21/24 20:52 03/21/24 18:42 Urine Color Yellow (Yellow) Urine Clarity Clear (Clear) Urine pH 6.0 (5.0-9.0) Urine Specific [place] > 1.035 (1.001-1.035) Urine Protein Trace (Negative) Urine Ketones Negative (Negative) Urine Blood Negative /uL (Negative) Urine Nitrite Negative (Negative) Urine Bilirubin Negative (Negative) Urine Urobilinogen 2 mg/dL (Negative) Urine Leukocyte Esterase Negative /uL (Negative) Urine RBC 1 /hpf (0 - 4) Urine Microscopic WBC 2 /HPF (0-5) Urine Squamous Epithelial Cells None seen /hpf (<5) Urine Bacteria None seen /hpf (None Seen) Urine Glucose Normal mg/dL (Normal) Urine Opiates Screen Pos (NEGATIVE) Urine Fentanyl Screen Neg (NEGATIVE) Urine Barbiturates Screen Neg (NEGATIVE) Urine Phencyclidine Screen Neg (NEGATIVE) Urine Amphetamines Screen Neg (NEGATIVE) Urine Benzodiazepines Screen Neg (NEGATIVE) Urine Cocaine Screen Neg (NEGATIVE) Urine Cannabinoids Screen Neg (NEGATIVE) Lactic Acid Level 1.4 mmol/L (0.4-2.0) Magnesium Level 1.9 mg/dL (1.6-2.6) Total Bilirubin 1.2 mg/dL (0.2-1.0) Aspartate Amino Transferase (AST) 73 U/L (13-40) Alanine Aminotransferase (ALT) 56 U/L (7-40) Alkaline Phosphatase 252 U/L (46-116) B-Type Natriuretic Peptide 631.40 pg/mL (0-100) Total Protein 5.6 g/dL (5.7-8.2) Albumin 3.4 g/dL (3.2-4.8) Other Laboratory Tests 03/25/24 06:08 Brief Hx & Hospital Course: 84 year-old female female with past medical history of HLD, afib, HTN, COPD, PCI with two stents 2016, renal Ca s/p left nephrectomy Was transferred from [facility] for elevated troponin with complaints of shortness of breath and chest pain over the previous five days. Chest pain towards the left side Non-radiating, 09/02. Patient endorses she does not use supplemental oxygen at home. Also endorses she was recently diagnosed with pneumonia on the . Also states her feet have been more swollen the last couple days. During the emergency department evaluation troponin 167/173/158; BNP 631; And patient is requiring supplemental oxygen at 3 LNC To maintain oxygen saturation 93%. There are no complaints of fevers, chills, palpitations, nausea, vomiting, Abdominal pain. Cardiovascular: AFIB, HTN, hyperipidemia She is admitted and evaluated by electrical controls designer and underwent a coronary angiogram. Patient had RCA stent placement. Patient is also treated with the empiric antibiotics for elevated WBC and possible pneumonia. Patient started on Cardizem and continued on metoprolol for her atrial fibrillation rate control. Patient rate is controlled. Blood pressure is stable. She was participated with physical therapy without any significant shortness for breath or chest pain. However she was weak therefore felt she would benefit from going to longterm facility given she lives alone at home by herself. While in the hospital patient continued on dual antiplatelet therapy as well. Patient is advised to continue these at least for one year. She was advised to follow up with the electrical controls designer after two weeks. Otherwise given overall patient is clinically stabilized not having any other issues it is felt she could be safely transferred to longterm facility for physical therapy today. I have talked with the patient regarding her hospital diagnosis, treatment she received, discharge medications, discharge instructions and follow-up plan of care. She has verbalized understanding of these and agree with the discharge care plan as mentioned. Consults/Reason for consult 2D echocardiogram Conclusion Technically good study. Atrial fibrillation. Concentric LVH with left atrial enlargement. Valves appear to be structurally normal. EF of 55% with normal RV function. Kmiy-rf-vghdtukf mitral insufficiency. Umnb-rb-thyfjtdi tricuspid insufficiency. No pericardial effusion masses or vegetations. SIGNED BY: YONY MG Sr., MD SIGNED DATE/TIME: 03/24/24 1535 Operations or Procedures Operative Report - 2 Report Details Date: 03/24/24 Preop Diagnosis: CAD Postop Diagnosis: Coronary artery disease. Stenosis of the ostial RCA Surgeon: Yony Mg MD Anesthesiologist: Conscious sedation Anesthesia: Mac, Local Consent: The patient was informed of the risks and benefits of the procedure. These include but are not limited to complications of anesthesia, postoperative infection, incomplete relief of symptoms, recurrence of symptoms, damage to blood vessels, nerves and tendons, deep venous thrombosis, pulmonary embolism and possible need for repeat surgery in the future. Complications: No complications Estimated Blood Loss: 3 cc Findings: Restenosis of proximal/ostial RCA Indications for Surgery: Chest pain. Name of Procedure Performed Bilateral Ca coronary angiography. Left ventriculography. PTCA and stenting of the RCA. Lithotripsy /intravascular lithotripsy of proximal RCA and stenting of RCA. Procedure Details Procedure Details: Prior local anesthesia with 2% lidocaine to the right wrist and full informed consent obtained the patient was prepped and draped in usual fashion followed by placement of a six Maori sheath into the right radial artery through which a JR4 catheter was used to cannulate the RCA and a JL3 five was used to cannulate the left main. A Satya catheter was used for ventriculography without complications. A JR4 guide was then used for angioplasty as well as an intravascular Lithotripsy balloon by shockwave for lithotripsy therapy. no complications. Hemodynamics aortic blood pressure was 120/70 end-diastolic pressure was 16 gradient across the aortic valve on pullback. Coronary anatomy the RCA has notable in stent restenosis of the proximal segment with a 95% lesion of the proximal / ostial RCA. The mid and distal segments have moderate plaquing without critical disease. Left main is a medium caliber vessel. There is mild in stent restenosis. No critical lesions in the left main. The LAD is a medium vessel is normal in its proximal mid and distal segments. Diagonals and septals are free of significant disease. The circumflex is large with two marginals free of significant disease. Ventriculography in the HOANG projection shows an EF of 50%. Angioplasty was performed for which a JL4 guide was then placed. A Specter wire was placed across the area of stenosis and a a shockwave intravascular lithotripsy balloon was placed. This was a two 5 x 12. Approximately 10 treatments were given to the proximal and ostial RCA segments. There was successful balloon dilatation post treatment. A 2.5 mm x 12 mm stent was placed this was a [employer] drug-eluting stent. Post dilated to 20 atmospheres. There was excellent antegrade flow without thrombus formation no dissection. Impression: Successful PTCA and stenting intravascular lithotripsy of the proximal RCA. Normal end-diastolic pressures. Normal ejection fraction. Recommendation: Continue dual antiplatelet therapy. Follow up in 4-6 weeks as an outpatient. we will continue aspirin for one as well as Plavix and Eliquis to be ongoing Condition Good Condition at Discharge: Stable Final Diagnosis/Problems List Coronary artery disease. Stenosis of the ostial RCA, pneumonia, physical deconditioning Discharge Disposition: Residential Facility Discharge Instruct/Medications Diet: Consistent carbohydrate, Cardiac 2g Na,low cholest Activity: No Restrictions, As Tolerated Follow Up/Referral: Dr. Mg a electrical controls designer after two weeks follow up coronary artery disease stent placement. Medications: As per transfer med reconciliation list Discharge Statement: "Patient was advised to return to the ER or call 911 if any headaches, dizziness, shortness of breath, chest pain, abdominal pain, bleeding, fevers, or worsening of medical condition. Patient was counseled about treatment plan, medications, possible side effects, patientverbalized understanding. All questions were answered to the best of my ability. This discharge took greater then 30 minutes in planning, reviewing documentation, counseling the patient, and discussing with other team members." ASSESSMENT ASSESSMENT Assessment Coronary artery disease. Stenosis of the ostial RCA, pneumonia, physical deconditioning ARNOL ADAMS MD Mar 25, 2024 14:12
[2024-03-25] MEDS: ONDANSETRON HCL 4 MG/2 ML VIAL IV PRN (17:05)
--- NOTE | 2024-03-25 23:15 | DVHPN2 ---
Progress Note - Dictate Date Seen: Mar 25, 2024 Medical Necessity Reason Pt with a Central, PICC or Fol: No Subjective Patient seen and examined at bedside. Remains on supplemental oxygen Overnight events reviewed. vital signs Vital Sign Date Time Temp Pulse Resp B/P (MAP) Pulse Ox O2 Delivery O2 Flow Rate FiO2 03/25/24 20:00 Nasal Cannula* 2 28 03/25/24 18:44 97 17 97 03/25/24 17:00 98.1 118/62 (80) 98.1 Total Intake and Output 03/24/24 03/24/24 03/25/24 15:00 23:00 07:00 Intake Total 850 ml 800 ml Balance 850 ml 800 ml objective Gen.: Patient lying in bed in no apparent distress. On supplemental oxygen. Head: Normocephalic, atraumatic. Eyes: EOMI/PERRLA. Ears: Normal hearing. Normal anatomy. Neck/trachea: Trachea midline, supple. Nose: Normal external anatomy. Mouth: Moist mucous membranes. Chest: Decreased air entry bilaterally. No wheezing or rhonchi. Cardiovascular: Positive S1, positive S2. Regular rate and rhythm. Abdomen: Positive bowel sounds in all 4 quadrants. Soft, non-tender, non- distended. : Deferred. Rectal: Deferred. Skin: Warm, dry. Intact. Extremities: 2+ radial pulses bilaterally. No lower extremity edema. Neuro: Awake, alert, oriented x3. No gross motor or sensory deficits. Cranial nerves II through XII intact. Gait not assessed. laboratory and microbiology Laboratory Tests 03/25/24 06:08 Test 03/25/24 06:08 Range/Units Serum Glucose 85 74-106 mg/dL Assessment/Plan Impression: Acute hypoxic respiratory failure Dependence on supplemental oxygen Pneumonia, likely gram negative COPD, not in exacerbation Coronary artery disease, s/p PCI Non-ST elevation myocardial infarction Events: Remains on supplemental oxygen, 2 LPM NC Taper O2 as tolerated Continue bronchodilators Continue antibiotics Incentive spirometry Physical therapy. CAD - s/p stent. Cardiology recommendations appreciated Awaiting placement. Labs and imaging reviewed. Rest of plan as noted below. Plan: Supplemental oxygen Titrate to keep O2 sats above 92%. Continue bronchodilators. Continue antibiotics Send sputum cultures if able to produce Monitor renal function. Monitor electrolytes. Supplement as necessary. Monitor ins and outs. DVT prophylaxis - SCDs. Prognosis: Poor given patient's multiple co-morbidities. Rest of plan per hospitalist and other consultants. Thank you, JUAN Hahn, for allowing me to participate in this patient's care. Further recommendations will depend on the patient's clinical course. Please do not hesitate to contact me if you have any questions or concerns. This medical document was created using an electronic medical record system with [employer] dictation system. Although these documentations are being carefully reviewed, there may still be some phonetic and typographical changes. The errors are purely typographical, due to imperfection on the software program, and do not reflect any compromise in the patient's medical care. Plan discussed with: Patient, Other (SAILAJA Raman) SONJA SHARPE MD Mar 25, 2024 23:15
== END 2024-03-25 20:15 | DRG 323 ==
LOC: ER 18:21 → TELE 23:03 → TELE-CENTR 03-22 08:58
PROVIDERS: ADMIT Nurse Practitioner Family; ATTEND Nurse Practitioner Family
PROC: 027034Z Dilation of Coronary Artery, One Artery with Drug-eluting Intraluminal Device, Percutaneous Approach (ICD-10-PCS; principal; 2024-03-24)
PROC: 02F03ZZ Fragmentation in Coronary Artery, One Artery, Percutaneous Approach (ICD-10-PCS; 2024-03-24)
PROC: 4A023N7 Measurement of Cardiac Sampling and Pressure, Left Heart, Percutaneous Approach (ICD-10-PCS; 2024-03-24)
PROC: B211YZZ Fluoroscopy of Multiple Coronary Arteries using Other Contrast (ICD-10-PCS; 2024-03-24)
PROC: B215YZZ Fluoroscopy of Left Heart using Other Contrast (ICD-10-PCS; 2024-03-24)
DX: T82.855A Stenosis of coronary artery stent, initial encounter (principal); I21.4 Non-ST elevation (NSTEMI) myocardial infarction; J15.69 Pneumonia due to other Gram-negative bacteria; J96.01 Acute respiratory failure with hypoxia; J15.9 Unspecified bacterial pneumonia; J44.0 Chronic obstructive pulmonary disease with (acute) lower respiratory infection; Z20.822 Contact with and (suspected) exposure to COVID-19; I10 Essential (primary) hypertension; I25.10 Atherosclerotic heart disease of native coronary artery without angina pectoris; I08.1 Rheumatic disorders of both mitral and tricuspid valves; E78.5 Hyperlipidemia, unspecified; I48.91 Unspecified atrial fibrillation; Z95.5 Presence of coronary angioplasty implant and graft; Z99.81 Dependence on supplemental oxygen; Z85.528 Personal history of other malignant neoplasm of kidney; Z90.5 Acquired absence of kidney; Z82.49 Family history of ischemic heart disease and other diseases of the circulatory system; Y84.8 Other medical procedures as the cause of abnormal reaction of the patient, or of later complication, without mention of misadventure at the time of the procedure; Y92.89 Other specified places as the place of occurrence of the external cause
CPT/HCPCS: 36415; 71045; 80048; 80053; 80307; 81001; 83605; 83735; 83880; 84484; 85007; 85025; 85027; 86803; 87040; 87340; 87426; 87804; 93005; 93306; 94640; 97110; 97116; 97163; 97530; 99152; 99291; C1874; G0378; J1885; J2250; J2405; Q9967

== ENCOUNTER 2024-07-20 19:45 | Inpatient (IN) | payer OTHER ==
[~2024-07-20] VITALS: Ht 165.1 cm; Wt 59.0 kg
[2024-07-20 19:54] VITALS: BP 112/60; RESP 16; TEMP 97.4; O2SAT 94
[2024-07-20] MEDS ORDERED: NITROGLYCERIN 0.4 MG SL TAB SL ONE (20:00)
--- NOTE | 2024-07-20 20:26 | ED.PDOC ---
HPI Comments HPI: Poor Historian. 85-year-old female presents to emergency department for evaluation of midsternal chest tightness pain radiating to the back intermittent worse today. And she has been having similar episodes since February but decided to get it checked today because he has been getting worse. Denies any other associated symptoms. . No alleviating or precipitating factors. Patient took some nitroglycerin earlier at home which helped improve her symptoms. Vitals: temperature of 97.4F, pulse of 98, respiratory rate of 16, blood pressure of 112/60, SpO2 of 94%RA Past Medical History: Coronary artery disease, hypertension, hyperlipidemia, renal cancer - left, COPD, AFIB Past Surgical History: Cataract surgery, tonsillectomy, left nephrectomy, PCI w/2x stents REVIEW OF SYSTEMS: CONSTITUTIONAL: Denies acute: fever, diaphoresis, chills, generalized weakness. HEAD: Denies acute: headache, photophobia Eyes: Denies acute: Double vision, vision loss, eye pain, eye discharge. EARS: Denies acute: tinnitus, hearing loss, ear discharge, ear pain, THROAT: Denies acute: sore throat, swelling, difficulty swallowing , pain with swallowing, change in voice. NECK: Denies acute: neck pain, neck swelling, stiff neck. HEART: Denies acute : palpitations, LUNGS: Denies acute: SOB, wheezing, cough, hemoptysis ABDOMEN: Denies acute: abdominal pain, Nausea, Vomiting, diarrhea, melena , hematemesis, hematochezia SKIN: Denies acute: rash, redness, lesions, itchiness. EXTREMITIES: Denies acute: calf pain, numbness, tingling, weakness, denies pain in extremity. Denies acute: Low back pain. Neuro: Denies acute: focal neurological deficit, motor or sensory focal neurological deficit, tremors, seizure like activity, confusion, dizziness, change in mental status, loss of bowel or bladder function, cauda equina like symptoms. : Denies acute: dysuria, hematuria, flank pain, increase in urinary frequency. PSYCH: Denies acute: hallucination, suicidal ideation, homicidal ideation. FEMALE: Denies acute: abnormal vaginal bleeding, foul odor, unusual discharge. PHYSICAL EXAM: General: ----bbfg-bn-eyzslnsk----acute distress, awake and alert. Head: normocephalic, atraumatic. Neck: supple, trachea is midline, no swelling. Throat: Normal phonation. Eyes:, no erythema, no purulent discharge, no proptosis, no icterus. Heart: regular rate, regular rhythm, no significant murmur appreciated. Lungs: no apparent respiratory distress, Able to speak in full sentences. No wheezing, no rhonchi, no crackles. No stridors Clear to auscultation bilaterally. Abdomen: non tender to palpation, non distended, soft, no guarding, no rebound, + bowel sounds. Neuro: Awake, Alert, oriented to name, self, situation, follows commands GCS=15. Speech is normal. Skin: no petechia, no purpura, no cyanosis, non-pale, not jaundice. Lower extremities: --no - Pitting edema no deformity, no focal swelling, no calf TTP. Makes eye contact. moves all four extremities. Face: no apparent facial droop. Ambulating in the ED independently. ED COURSE: Chief Complaint: Chest Pain Time Seen by MD: 19:47 Primary Care Provider: PALOMO Olivarez Notes: Nurses Notes, Allergies Allergies: Coded Allergies: NO KNOWN ALLERGIES (Unverified , 09/27/14) Information Source: Patient Mode of Arrival: Ambulatory Past Medical History PAST MEDICAL HISTORY: AFIB, CAD, Cancer (renal s/p left nephrectomy), COPD, High Lipids, HTN Surgical History: PTCA (PCI w/2x stents), Tonsillectomy Surgical History (Other): left nephrectomy cataract surgery GERONTOLOGICAL NURSE PRACTITIONER History: No Pertinent GERONTOLOGICAL NURSE PRACTITIONER History Family History Family History: Reviewed,noncontributory to illness Social History Smoker: Non-Smoker Alcohol: Denies ETOH Use Drugs: Denies Drug Use Lives In: Home EKG EKG #1: Pulse Rate (adult): 103 [place]: Normal Cardiac Rhythm: Afib Block: None Hypertrophy: None ST: Normal EKG #2: Pulse Rate (adult): 102 [place]: Normal Cardiac Rhythm: Afib Block: None Hypertrophy: None ST: Normal Was a procedure done? Was a procedure done?: No CP Differential Dx Differential Diagnosis: N/A Differential Diagnosis: Other (Ddx include but not limitied to gastritis, musculoskeletal pain, radiculopathy, atypical chest pain, dissection, aneurysm, ACS, unstable angina, hiatal hernia, GERD, anxiety, costochondritis, PE, pneumothroax, neoplasm, cardiac ischemia, drug abuse, anemia.) X-Ray, Labs, Meds, VS Vital Signs Date Time Temp Pulse Resp B/P (MAP) Pulse Ox O2 Delivery O2 Flow Rate FiO2 07/20/24 20:51 102 07/20/24 19:54 97.4 98 16 112/60 (77) 94 97.4 07/20/24 19:54 103 Lab Test 07/20/24 21:23 07/20/24 19:49 Range/Units Troponin I High Sensitivity 60 *H 31 </=34 ng/L Triglycerides Level 154 H < 150 mg/dL Cholesterol Level 172 < 200 mg/dL LDL Cholesterol 95 < 100 mg/dL HDL Cholesterol 56 40-59 mg/dL White Blood Count 9.8 4.4-10.8 10^3/uL Red Blood Count 5.48 H 4.0-5.20 10^6/uL Hemoglobin 14.9 12.2-16.2 g/dL Hematocrit 45.0 36.0-46.0 % Mean Corpuscular Volume 82.1 80.0-100.0 fL Mean Corpuscular Hemoglobin 27.2 L 28.0-32.0 pg Mean Corpuscular Hemoglobin Concent 33.1 32.0-36.0 g/dL Red Cell Distribution Width 15.9 H 11.8-14.3 % Platelet Count 316 140-450 10^3/uL Mean Platelet Volume 8.6 6.9-10.8 fL Neutrophils (%) (Auto) 50.2 37.0-80.0 % Lymphocytes (%) (Auto) 36.5 10.0-50.0 % Monocytes (%) (Auto) 9.1 0.0-12.0 % Eosinophils (%) (Auto) 3.2 0.0-7.0 % Basophils (%) (Auto) 1.0 0.0-2.0 % Neutrophils # (Auto) 4.9 1.6-8.6 10 ^3/uL Lymphocytes # (Auto) 3.6 0.4-5.4 10 ^3/uL Monocytes # (Auto) 0.9 0-1.3 10 ^3/uL Eosinophils # (Auto) 0.3 0-0.8 10 ^3/uL Basophils # (Auto) 0.1 0-0.2 10 ^3/uL Nucleated Red Blood Cells 0.1 % Prothrombin Time 10.8 9.3-11.8 sec Prothrombin Time INR 1.02 0.9-1.15 Sodium Level 140 136-145 mmol/L Potassium Level 4.5 3.5-5.1 mmol/L Chloride Level 107 98-107 mmol/L Carbon Dioxide Level 24 20-31 mmol/L Anion Gap 9 5-15 Blood Urea Nitrogen 28 H 9-23 mg/dL Creatinine 1.27 H 0.550-1.02 mg/dL Glomerular Filtration Rate Calc 42 >90 mL/min BUN/Creatinine Ratio 22.0 H 10.0-20.0 Serum Glucose 104 74-106 mg/dL Calcium Level 11.0 H 8.7-10.4 mg/dL Magnesium Level 2.1 1.6-2.6 mg/dL Total Bilirubin 0.5 0.2-1.0 mg/dL Aspartate Amino Transferase (AST) 28 13-40 U/L Alanine Aminotransferase (ALT) 20 7-40 U/L Alkaline Phosphatase 63 46-116 U/L B-Type Natriuretic Peptide 231.69 0-100 pg/mL Total Protein 6.8 5.7-8.2 g/dL Albumin 4.7 3.2-4.8 g/dL Time of 1ST Reevaluation: 20:55 Reevaluation 1ST: Unchanged Time of 2ND Reevaluation: 20:55 (The case was discussed with the admitting team (HPI, physical exam, labs and diagnostic tests that were available at the time of disposition, ED course, treatment plan) on the phone. They agreed to admit the patient to their service and assume care of this patient from this point forward. Nurse practitioner Pham) Patient Education/Counseling: Diagnosis, Treatment Family Education/Counseling: No Family Present Comments Patient presented with the above HPI.-chest pain-----workup was initiated. patient was found with the above mentioned diagnosis. the following medications were ordered: please refer to order lists of meds and tests obtained by myself Dr. Lo. Escalation of care considered: Consideration of escalation to observation or admission Patient was ADMITTED to the medicine team for further evaluation and treatment of their presentation. However patient eloped All the reports of any imaging studies that were ordered by myself were reviewed by myself. Departure 1 Departure Time of Disposition: 20:26 Impression: Primary Impression: Chest pain Additional Impression: Elevated troponin Disposition: ADMITTED INPATIENT Admit to: Tele Condition: Guarded Additional Instructions: Patient eloped Discharged With: Self Critical Care Note Critical Care Time?: Yes (35 min-critical care time only) Heart Score Heart Score: Heart Score Response (Comments) Value History Moderate Suspicious 1 EKG Repolarization Disturb 1 Age >65 2 Risk Factors >3 or Hx ASHD 2 Troponin 1-2 x's Normal limit 1 Total 7 I personally scribed for JUANITO LO DO ([email or web address]) on 07/21/24 at 02:55. Electronically submitted by Wilfredo Miller [email or web address]). JUANITO LO DO July 20, 2024 20:26
[2024-07-20 20:29] LABS: Alanine Aminotransferase 20 U/L (7-40); Albumin 4.7 g/dL (3.2-4.8); Alkaline Phosphatase 63 U/L (46-116); Anion Gap 9 (5-15); Aspartate Aminotransferase 28 U/L (13-40); Bilirubin, Total 0.5 mg/dL (0.2-1.0); Carbon Dioxide 24 mmol/L (20-31); Chloride 107 mmol/L (98-107); Glucose 104 mg/dL (74-106); Magnesium 2.1 mg/dL (1.6-2.6); Potassium 4.5 mmol/L (3.5-5.1); Sodium 140 mmol/L (136-145); Total Protein 6.8 g/dL (5.7-8.2)
[2024-07-20 20:31] LABS: Basophils # (auto) 0.1 10 ^3/uL (0-0.2); Eosinophils # (auto) 0.3 10 ^3/uL (0-0.8); Eosinophils % (auto) 3.2 % (0.0-7.0); Hemoglobin 14.9 g/dL (12.2-16.2); Lymphocytes # (auto) 3.6 10 ^3/uL (0.4-5.4); Lymphocytes % (auto) 36.5 % (10.0-50.0); Mean Corpuscular Hemoglobin 27.2 pg (28.0-32.0); Mean Corpuscular Hgb Conc. 33.1 g/dL (32.0-36.0); Mean Corpuscular Volume 82.1 fL (80.0-100.0); Monocytes # (auto) 0.9 10 ^3/uL (0-1.3); Monocytes % (auto) 9.1 % (0.0-12.0); Neutrophils # (auto) 4.9 10 ^3/uL (1.6-8.6); Neutrophils % (auto) 50.2 % (37.0-80.0); Nucleated Red Blood Cells % 0.1 %; Platelet Count (auto) 316 10^3/uL (140-450); Red Blood Cells 5.48 10^6/uL (4.0-5.20); Red Cell Distribution Width 15.9 % (11.8-14.3); White Blood Cell 9.8 10^3/uL (4.4-10.8)
[2024-07-20 20:52] LABS: Blood Urea Nitrogen 28 mg/dL (9-23)
--- NOTE | 2024-07-20 20:54 | ECG ---
[facility] Test Date: 2024-07-20 Test Time: 20:51:52 Pat Name: LAURA BUSH Department: ED Room: Gender: F Chief Informatics Officer: JEANETTE : 1940 Requested By: JUANITO PINO Order Number: [id number] Reading MD: Measurements Intervals [place] Rate: 102 P: 0 VA: 0 QRS: 35 QRSD: 98 T: 55 QT: 358 QTc: 467 Interpretive Statements Atrial fibrillation Anterior infarct, old Minimal ST elevation, inferior leads Please click the below link to view image of tracing.
--- NOTE | 2024-07-20 21:30 | ECG ---
[facility] Test Date: 2024-07-20 Test Time: 19:54:37 Pat Name: LAURA BUSH Department: ED Room: Gender: F Residential Instructor: dirk : 1940 Requested By: JUANITO PINO Order Number: [id number] Reading MD: Measurements Intervals [place] Rate: 103 P: 0 WA: 0 QRS: 57 QRSD: 155 T: 43 QT: 375 QTc: 491 Interpretive Statements Atrial fibrillation Nonspecific intraventricular conduction delay Probable anteroseptal infarct, recent Baseline wander in lead(s) V2 Please click the below link to view image of tracing.
[2024-07-20] MEDS ORDERED: ONDANSETRON HCL 4 MG/2 ML VIAL IV PRN (22:45)
[2024-07-20] MEDS ORDERED: NITROGLYCERIN 0.4 MG SL TAB SL PRN (22:45)
[2024-07-20] MEDS ORDERED: ACETAMINOPHEN 325 MG TAB PO PRN (22:45)
[2024-07-20] MEDS ORDERED: HYDROcodone-ACET 5/325MG TAB PO PRN (22:45)
[2024-07-20] MEDS ORDERED: MORPHINE SULFATE INJ 2 MG/ml SYRG IV PRN (22:45)
[2024-07-20 23:04] LABS: INR 1.02 (0.9-1.15); Prothrombin Time 10.8 sec (9.3-11.8)
[2024-07-20 23:08] LABS: LDL Cholesterol 95 mg/dL (< 100)
[2024-07-20 23:09] LABS: Cholesterol 172 mg/dL (< 200); HDL Cholesterol 56 mg/dL (40-59); Triglycerides 154 mg/dL (< 150)
[2024-07-20] MEDS ORDERED: ASPirin-EC 325mg tab PO ONE (23:15)
--- NOTE | 2024-07-21 00:37 | DVHHP2 ---
Admitting Diagnosis: Chest pain History of Present Illness HPI Mrs. Felicity Miller is an 85-year-old female with a history of CAD, HTN, HLD, NSTEMI in February with stent to RCA, cataract surgery, tonsillectomy who presents with a chief complaint of midsternal chest tightness pain radiating to the back intermittent worse today. Patient reported she has been having similar episodes since February but decided to get it checked today because he has been getting worse. Denies any other associated symptoms. . No alleviating or precipitating factors. Patient took some nitroglycerin earlier at home which helped improve her symptoms. Patient admitted for further evaluation and treatment. Past Medical History Cardiac: CAD, HTN, [place], Hyperlipidemia Past Surgical History: Cataract removal, Tonsillectomy Patient Family History: Cardiovascular disease G8 FATHER Family history: Cardiovascular disease G8 FATHER Smoker: No Hx (Negative) Alocohol: None Drugs: None Lives with: With family Domestic Violence: Neg Review of Systems Constitutional: No symptom reported Ears, Nose, & Throat: No symptom reported Eyes: No symptom reported Pulmonary/Respiratory: No symptom reported Cardiovascular: Chest Pain Gastrointestinal: No symptom reported Genitourinary: No symptom reported Musculoskeletal: No symptom reported Skin: No symptom reported Psychiatric: No symptom reported Endocrine: No symptom reported Hemotologic/Lymphatic: No symptom reported H&P Exam Vital Signs Vital Signs Date Time Temp Pulse Resp B/P (MAP) Pulse Ox O2 Delivery O2 Flow Rate FiO2 07/20/24 20:51 102 07/20/24 19:54 97.4 16 112/60 (77) 94 97.4 General Appeara: Well developed, Well nourished, Normal Appearance Head Exam: Normal inspection Neck Exam: Normal inspection, Non-tender, Normal alignment Eye Exam: bilateral eye Normal inspection, bilateral eye PERRL, bilateral eye EOMI Ear Exam: bilateral ear Auricle normal, bilateral ear Canal normal, bilateral ear TM normal Nasal Exam: Normal inspection Mouth: Normal Inspection Pulmonary/Respiratory: Normal inspection, Normal breath sounds, Chest non- tender, Lungs clear Cardiovascular/Chest: Normal inspection, Regular rate, Normal Rhythm Abdominal Exam: Normal bowel sounds, Soft, No tenderness, No hepatospenomegaly, No masses Rectal Exam: Normal inspection Back Exam: Normal inspection Pelvic Exam: External exam normal, Bimanual exam normal, Speculum exam normal Male Genital Exam: Normal genitalia, Normal prostate Shoulder Exam: Normal inspection, Non-tender, Normal ROM Elbow/Forearm Exam: Normal inspection, Non-tender, Normal ROM Wrist Exam: Normal inspection, Non-tender, Normal ROM Hand Exam: Normal inspection, Non-tender, Normal ROM Hip exam: Normal inspection, Non-tender, Normal range of motion Legs: bilateral leg non-tender, bilateral leg normal inspection, bilateral leg normal range of motion, bilateral leg no evidence of injury Knees: bilateral knee non-tender, bilateral knee normal inspection, bilateral knee normal range of motion, bilateral knee no evidence of injury Ankle Exam: bilateral ankle Normal inspection, bilateral ankle Non-tender, bilateral ankle Normal range of motion, bilateral ankle No evidence of injury Foot: bilateral foot non-tender, bilateral foot normal inspection, bilateral foot normal range of motion, bilateral foot no evidence of injury Tendon/ Neuro: Normal sensation, Normal motor function, Normal tendon functions PHOTOGRAPH MOUNTER Exam: Normal hearing, Normal speech, PERRL Motor/Sensory: Normal sensory function, Normal motor function, Negative Babinski's sign Deep Tendon Ref: All intact Neuro/Mental St: Alert, Oriented Appearance: Appropriate appearance, Appropriate insight Eye contact/ Speech: Cooperative, Good eye contact, Normal speech Coordination/Gait: Normal finger->nose, Normal gait, Negative Romberg's sign Skin Exam: Normal inspection, Normal color, Warm/dry Lymphatic: Normal inspection Labs/Xrays Labs Test 07/20/24 21:23 07/20/24 19:49 Range/Units Troponin I High Sensitivity 60 *H </=34 ng/L Triglycerides Level 154 H < 150 mg/dL Cholesterol Level 172 < 200 mg/dL LDL Cholesterol 95 < 100 mg/dL HDL Cholesterol 56 40-59 mg/dL White Blood Count 9.8 4.4-10.8 10^3/uL Red Blood Count 5.48 H 4.0-5.20 10^6/uL Hemoglobin 14.9 12.2-16.2 g/dL Hematocrit 45.0 36.0-46.0 % Mean Corpuscular Volume 82.1 80.0-100.0 fL Mean Corpuscular Hemoglobin 27.2 L 28.0-32.0 pg Mean Corpuscular Hemoglobin Concent 33.1 32.0-36.0 g/dL Red Cell Distribution Width 15.9 H 11.8-14.3 % Platelet Count 316 140-450 10^3/uL Mean Platelet Volume 8.6 6.9-10.8 fL Neutrophils (%) (Auto) 50.2 37.0-80.0 % Lymphocytes (%) (Auto) 36.5 10.0-50.0 % Monocytes (%) (Auto) 9.1 0.0-12.0 % Eosinophils (%) (Auto) 3.2 0.0-7.0 % Basophils (%) (Auto) 1.0 0.0-2.0 % Neutrophils # (Auto) 4.9 1.6-8.6 10 ^3/uL Lymphocytes # (Auto) 3.6 0.4-5.4 10 ^3/uL Monocytes # (Auto) 0.9 0-1.3 10 ^3/uL Eosinophils # (Auto) 0.3 0-0.8 10 ^3/uL Basophils # (Auto) 0.1 0-0.2 10 ^3/uL Nucleated Red Blood Cells 0.1 % Prothrombin Time 10.8 9.3-11.8 sec Prothrombin Time INR 1.02 0.9-1.15 Sodium Level 140 136-145 mmol/L Potassium Level 4.5 3.5-5.1 mmol/L Chloride Level 107 98-107 mmol/L Carbon Dioxide Level 24 20-31 mmol/L Anion Gap 9 5-15 Blood Urea Nitrogen 28 H 9-23 mg/dL Creatinine 1.27 H 0.550-1.02 mg/dL Glomerular Filtration Rate Calc 42 >90 mL/min BUN/Creatinine Ratio 22.0 H 10.0-20.0 Serum Glucose 104 74-106 mg/dL Calcium Level 11.0 H 8.7-10.4 mg/dL Magnesium Level 2.1 1.6-2.6 mg/dL Total Bilirubin 0.5 0.2-1.0 mg/dL Aspartate Amino Transferase (AST) 28 13-40 U/L Alanine Aminotransferase (ALT) 20 7-40 U/L Alkaline Phosphatase 63 46-116 U/L B-Type Natriuretic Peptide 231.69 0-100 pg/mL Total Protein 6.8 5.7-8.2 g/dL Albumin 4.7 3.2-4.8 g/dL Assessment/Plan Problem List: (1) Chest pain (2) Elevated troponin Plan This is an 84 yo female with a history of CAD, HTN, HLD, NSTEMI with stent to RCA, cataract removal, tonsillectomy who presents to the hospital with chest pain. Patient was found to have 1. chest pain with elevated troponin level 2. Hypertension 3. CAD Plan Admit Telemetry unit Cardiology consultation, 2D echocardiogram, serial troponin levels, ASA, Statin, Lipid Panel Continue home medications when reconciled Discussed with supervising MD. Addendum: Patient eloped from ED shortly after admission. Patient's chart is reviewed and discussed with the nurse practitioner. I agree with the nurse practitioner's evaluation, documentation assessment and care plan as outlined. Plan discussed with: Other Code Visit Code Visit Total Time (mins): 45 NAZARIO ORTIZ July 21, 2024 00:36 ARNOL ADAMS MD July 21, 2024 13:54
[2024-07-21 02:55] VITALS: PULSE 102
[2024-07-21] MEDS ORDERED: FAMOTIDINE 20 MG TAB PO SCH (10:00)
[2024-07-21] MEDS ORDERED: ENOXAPARIN SOD 60 MG/0.6 ML SYRINGE SC SCH (10:00)
[2024-07-21] MEDS ORDERED: ASPirin-EC 81 mg tab PO SCH (10:00)
[2024-07-21] MEDS ORDERED: ATORVASTATIN 20 MG TAB PO SCH (22:00)
== END 2024-07-20 23:43 | disposition left against medical advice (07) | DRG 313 ==
LOC: ER 19:45 → OVERFLOW 22:37
PROVIDERS: ADMIT Nurse Practitioner Family; ATTEND Nurse Practitioner Family
DX: R07.89 Other chest pain (principal); I25.10 Atherosclerotic heart disease of native coronary artery without angina pectoris; I10 Essential (primary) hypertension; E78.5 Hyperlipidemia, unspecified; Z53.29 Procedure and treatment not carried out because of patient's decision for other reasons; I48.91 Unspecified atrial fibrillation; J44.9 Chronic obstructive pulmonary disease, unspecified; Z90.5 Acquired absence of kidney; Z85.528 Personal history of other malignant neoplasm of kidney; Z82.49 Family history of ischemic heart disease and other diseases of the circulatory system; I25.2 Old myocardial infarction; Z79.899 Other long term (current) drug therapy
CPT/HCPCS: 36415; 80053; 80061; 83735; 83880; 84484; 85025; 85610; 93005; 99291; G0378

== ENCOUNTER 2024-08-04 17:50 | Inpatient (IN) | payer OTHER ==
[~2024-08-04] VITALS: Ht 165.1 cm; Wt 60.3 kg
--- NOTE | 2024-08-04 18:11 | ED.PDOC ---
HPI Comments 84-year-old female presents with a chief complaint of chest pain x onset 1545 this afternoon. Patient states that she began to feel palpitations and generalized weakness around 1545 today. Patient mentions that she took a NTG, but that it did not relieve her pain. Patient is currently showing A-Fib via EKG at a rate of 143. 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 Mg. Patient took two baby aspirin earlier today. Patient denies any awareness of history of atrial fibrillation. PMHx: HLD, HTN, CAD, Cancer, COPD PSHx: PTCA, Tonsillectomy HPI: Poor Historian. REVIEW OF SYSTEMS: CONSTITUTIONAL: Denies acute: fever, diaphoresis, chills, generalized weakness. HEAD: Denies acute: headache, photophobia Eyes: Denies acute: Double vision, vision loss, eye pain, eye discharge. EARS: Denies acute: tinnitus, hearing loss, ear discharge, ear pain, THROAT: Denies acute: sore throat, swelling, difficulty swallowing , pain with swallowing, change in voice. NECK: Denies acute: neck pain, neck swelling, stiff neck. HEART: Denies acute : LUNGS: Denies acute: SOB, wheezing, cough, hemoptysis ABDOMEN: Denies acute: abdominal pain, Nausea, Vomiting, diarrhea, melena , hematemesis, hematochezia SKIN: Denies acute: rash, redness, lesions, itchiness. EXTREMITIES: Denies acute: calf pain, numbness, tingling, weakness, denies pain in extremity. Denies acute: Low back pain. Neuro: Denies acute: focal neurological deficit, motor or sensory focal neurological deficit, tremors, seizure like activity, confusion, dizziness, change in mental status, loss of bowel or bladder function, cauda equina like symptoms. : Denies acute: dysuria, hematuria, flank pain, increase in urinary frequency. PSYCH: Denies acute: hallucination, suicidal ideation, homicidal ideation. FEMALE: Denies acute: abnormal vaginal bleeding, foul odor, unusual discharge. PHYSICAL EXAM: General: ----[id number]----acute distress, awake and alert. Head: normocephalic, atraumatic. Neck: supple, trachea is midline, no swelling. Throat: Normal phonation. Eyes:, no erythema, no purulent discharge, no proptosis, no icterus. Heart: Irregular rate and rhythm consistent with atrial fibrillation with RVR, no significant murmur appreciated. Lungs: no apparent respiratory distress, Able to speak in full sentences. No wheezing, no rhonchi, no crackles. No stridors Clear to auscultation bilaterally. Abdomen: non tender to palpation, non distended, soft, no guarding, no rebound, + bowel sounds. Neuro: Awake, Alert, oriented to name, self, situation, follows commands GCS=15. Speech is normal. Skin: no petechia, no purpura, no cyanosis, non-pale, not jaundice. Lower extremities: --no - Pitting edema no deformity, no focal swelling, no calf TTP. Makes eye contact. moves all four extremities. Face: no apparent facial droop. Ambulating in the ED independently. ED COURSE: Chief Complaint: Chest Pain Time Seen by MD: 18:00 Primary Care Provider: PALOMO Reviewed Notes: Medications, Allergies Allergies: Coded Allergies: Penicillins (Verified Allergy, Unknown, 08/04/24) Home Meds Active Scripts Famotidine (Pepcid AC) 20 Mg Tab, 20 MG PO DAILY, #30 TAB Prov:ARNOL ADAMS MD 08/05/24 Atorvastatin Calcium (ATORVASTATIN CALCIUM) 40 Mg Tab, 1 TAB PO QPM, #90 TAB Prov:ARNOL ADAMS MD 08/05/24 Metoprolol Tartrate (Metoprolol Tartrate) 25 Mg Tab, 0.5 TAB PO DAILY, #60 TAB 1 Refill To take half a tablet (12.5 mg) daily. Hold if your heart rate is below 60. Prov:ARNOL ADAMS MD 08/05/24 Clopidogrel Bisulfate (CLOPIDOGREL) 75 Mg Tab, 1 TAB PO DAILY, #90 TAB 1 Refill Prov:ARNOL ADAMS MD 08/05/24 Aspirin (Aspirin Ec) 81 Mg Tab, 81 MG PO DAILY, #30 TAB Prov:ARNOL ADAMS MD 08/05/24 Information Source: Patient Mode of Arrival: Ambulatory Past Medical History PAST MEDICAL HISTORY: AFIB, CAD, Cancer, COPD, High Lipids, HTN Surgical History: PTCA, Tonsillectomy COUNTY TAX ASSESSOR History: No Pertinent COUNTY TAX ASSESSOR History Family History Family History: Reviewed,noncontributory to illness Social History Smoker: Non-Smoker Alcohol: Denies ETOH Use Drugs: Denies Drug Use Lives In: Home EKG EKG : Pulse Rate (adult): 143 [place]: Normal Cardiac Rhythm: Afib Block: None Hypertrophy: None ST: Normal Was a procedure done? Was a procedure done?: No CP Differential Dx Differential Diagnosis: A-fib, A-Flutter, Angina, Anxiety / Panic Attack, Atrial Dysrhythmia, Electrolyte Disorder, Heart Failure, Hyperthyroidism, Hyperventilation, Hypoxia, MAT, [place], PAC's, Pacemaker Malfunction, PSVT, Pulmonary Embolus, PVC's, Renal Failure, Sinus Tachycardia, T[place] Point[place], Ventricular Dysrhythmia, V-Fib, V-Tach, WPW X-Ray, Labs, Meds, VS Vital Signs Date Time Temp Pulse Resp B/P (MAP) Pulse Ox O2 Delivery O2 Flow Rate FiO2 08/04/24 22:00 86 08/04/24 21:14 98 130/76 08/04/24 20:51 86 08/04/24 20:10 134 146/80 08/04/24 20:00 98 94 Room Air* 0 21 08/04/24 20:00 98 22 146/80 (102) 94 08/04/24 18:54 98 08/04/24 18:46 98.2 102 18 128/83 (98) 93 98.2 08/04/24 18:45 Room Air* 0 08/04/24 18:19 111 08/04/24 18:11 143 08/04/24 17:56 132 08/04/24 17:55 98.2 143 16 129/82 (98) 94 98.2 Lab Test 08/04/24 21:11 08/04/24 19:25 08/04/24 18:22 08/04/24 18:05 Range/Units Troponin I High Sensitivity 26 14 9 </=34 ng/L Urine Color Light-yellow Yellow Urine Clarity Clear Clear Urine pH 6.5 5.0-9.0 Urine Specific [place] 1.011 1.001-1.035 Urine Protein Negative Negative Urine Ketones Negative Negative Urine Blood Negative Negative /uL Urine Nitrite Negative Negative Urine Bilirubin Negative Negative Urine Urobilinogen Normal Negative mg/dL Urine Leukocyte Esterase Negative Negative /uL Urine RBC 1 0 - 4 /hpf Urine Microscopic WBC < 1 0-5 /HPF Urine Squamous Epithelial Cells Few <5 /hpf Urine Bacteria None seen None Seen /hpf Urine Glucose Normal Normal mg/dL White Blood Count 9.6 4.4-10.8 10^3/uL Red Blood Count 5.17 4.0-5.20 10^6/uL Hemoglobin 14.3 12.2-16.2 g/dL Hematocrit 41.9 36.0-46.0 % Mean Corpuscular Volume 81.0 80.0-100.0 fL Mean Corpuscular Hemoglobin 27.5 L 28.0-32.0 pg Mean Corpuscular Hemoglobin Concent 34.0 32.0-36.0 g/dL Red Cell Distribution Width 16.1 H 11.8-14.3 % Platelet Count 257 140-450 10^3/uL Mean Platelet Volume 7.9 6.9-10.8 fL Neutrophils (%) (Auto) 69.3 37.0-80.0 % Lymphocytes (%) (Auto) 21.7 10.0-50.0 % Monocytes (%) (Auto) 6.5 0.0-12.0 % Eosinophils (%) (Auto) 1.8 0.0-7.0 % Basophils (%) (Auto) 0.7 0.0-2.0 % Neutrophils # (Auto) 6.6 1.6-8.6 10 ^3/uL Lymphocytes # (Auto) 2.1 0.4-5.4 10 ^3/uL Monocytes # (Auto) 0.6 0-1.3 10 ^3/uL Eosinophils # (Auto) 0.2 0-0.8 10 ^3/uL Basophils # (Auto) 0.1 0-0.2 10 ^3/uL Nucleated Red Blood Cells 0.1 % Sodium Level 144 136-145 mmol/L Potassium Level 3.9 3.5-5.1 mmol/L Chloride Level 109 H 98-107 mmol/L Carbon Dioxide Level 24 20-31 mmol/L Anion Gap 11 5-15 Blood Urea Nitrogen 24 H 9-23 mg/dL Creatinine 0.90 0.550-1.02 mg/dL Glomerular Filtration Rate Calc 64 >90 mL/min BUN/Creatinine Ratio 26.7 H 10.0-20.0 Serum Glucose 166 H 74-106 mg/dL Calcium Level 10.8 H 8.7-10.4 mg/dL Magnesium Level 1.8 1.6-2.6 mg/dL Total Bilirubin 0.5 0.2-1.0 mg/dL Aspartate Amino Transferase (AST) 32 13-40 U/L Alanine Aminotransferase (ALT) 35 7-40 U/L Alkaline Phosphatase 84 46-116 U/L B-Type Natriuretic Peptide 106.25 0-100 pg/mL Total Protein 6.9 5.7-8.2 g/dL Albumin 4.7 3.2-4.8 g/dL Current Medications Medications (Trade) Dose Ordered Sig/Rosa Route Start Time Stop Time Status Last Admin Sodium Chloride 500 ml @ 500 mls/hr Q1H ONCE IV 08/04/24 18:15 08/04/24 19:14 DC 08/04/24 18:37 Metoprolol Tartrate (Lopressor) 5 mg ONCE ONCE IV 08/04/24 18:15 08/04/24 18:16 DC 08/04/24 20:10 PATIENT: LAURA BUSHT: [id number]: [id number] : 1940 LOC: ER ROOM / BED: / AGE / SEX: 84 / F ADM STATUS: REG ER SERVICE 180 ORDERING PHYSICIAN: JUANITO PINO DO PROCEDURE(s): CXRP - CHEST PORTABLE REASON: cp, palpit, afib rvr ORDER NUMBER(s): [id number], ACCESSION NUMBER(s): [id number] EXAM: XR Chest, 1 View CLINICAL INDICATION: cp, palpit, afib rvr TECHNIQUE: Frontal view of the chest. COMPARISON: XY CHEST PORTABLE on DOS: 03/21/24 FINDINGS: LUNGS AND PLEURAL SPACES: Unremarkable. No consolidation. No pneumothorax. HEART: Unremarkable. No cardiomegaly. MEDIASTINUM: Unremarkable. Normal mediastinal contour. BONES/JOINTS: Unremarkable. No acute fracture. OTHER FINDINGS: . IMPRESSION: No acute cardiopulmonary process. ATED BY: ADWOA HOLLINGSWORTH MD DICTATED DATE/TIME: 08/04/241837 SIGNED BY: ADWOA HOLLINGSWORTH MD SIGNED DATE/TIME: 08/04/241837 Time of 1ST Reevaluation: 18:30 Reevaluation 1ST: Unchanged Time of 2ND Reevaluation: 20:42 (The case was discussed with the admitting team (HPI, physical exam, labs and diagnostic tests that were available at the time of disposition, ED course, treatment plan) on the phone. They agreed to admit the patient to their service and assume care of this patient from this point forward. Nurse practitioner Benjamin) Patient Education/Counseling: Diagnosis, Treatment Family Education/Counseling: No Family Present Comments Patient presented with the above HPI.-weakness and atrial fibrillation with RVR-----workup was initiated. patient was found with the above mentioned diagnosis. the following medications were ordered: please refer to order lists of meds and tests obtained by myself Dr. Pino. Patient ED course and VS have been stabilized. Patient has been reassessed in the ED and remained in a stable condition. Pertinent incidental findings were discussed with the patient and/or family. Patient/family voices understanding and is agreeable with plan. Patient has been observed in the ED adequate length of time to insure improvement/stability. Escalation of care considered: Consideration of escalation to observation or admission Patient was ADMITTED to the medicine team for further evaluation and treatment of their presentation. All the reports of any imaging studies that were ordered by myself were reviewed by myself. Departure 1 Departure Time of Disposition: 19:11 Impression: Primary Impression: Atrial fibrillation with RVR Additional Impression: Elevated troponin Disposition: ADMITTED INPATIENT Admit to: Tele Condition: Guarded e-Prescriptions Famotidine (Pepcid AC) 20 Mg Tab 20 MG PO DAILY, #30 TAB Prov: ARNOL ADAMS MD 08/05/24 Atorvastatin Calcium (ATORVASTATIN CALCIUM) 40 Mg Tab 1 TAB PO QPM, #90 TAB Prov: ARNOL ADAMS MD 08/05/24 Metoprolol Tartrate (Metoprolol Tartrate) 25 Mg Tab 0.5 TAB PO DAILY, #60 TAB 1 Refill To take half a tablet (12.5 mg) daily. Hold if your heart rate is below 60. Prov: ARNOL ADAMS MD 6/12/25 Clopidogrel Bisulfate (CLOPIDOGREL) 75 Mg Tab 1 TAB PO DAILY, #90 TAB 1 Refill Prov: ARNOL ADAMS MD 08/05/24 Aspirin (Aspirin Ec) 81 Mg Tab 81 MG PO DAILY, #30 TAB Prov: ARNOL ADAMS MD 08/05/24 Discharged With: Self Critical Care Note Critical Care Time?: Yes (55 min-critical care time only) Heart Score Heart Score: Heart Score Response (Comments) Value History Moderate Suspicious [address]-Deviation 2 Age >65 2 Risk Factors >3 or Hx ASHD 2 Troponin 1-2 x's Normal limit 1 Total 8 I personally scribed for JUANITO PINO DO ([email or web address]) on 08/04/24 at 18:11. Electronically submitted by Ambrosio Clement ([email or web address]). I personally scribed for JUANITO PINO DO ([email or web address]) on 08/04/24 at 20:07. Electronically submitted by Ambrosio Clement ([email or web address]). I personally scribed for JUANITO PINO DO ([email or web address]) on 08/04/24 at 20:11. Electronically submitted by Ambrosio Clement ([email or web address]). JUANITO PINO DO Aug 04, 2024 18:11
[2024-08-04 18:24] LABS: Basophils # (auto) 0.1 10 ^3/uL (0-0.2); Basophils % (auto) 0.7 % (0.0-2.0); Eosinophils # (auto) 0.2 10 ^3/uL (0-0.8); Eosinophils % (auto) 1.8 % (0.0-7.0); Hematocrit 41.9 % (36.0-46.0); Hemoglobin 14.3 g/dL (12.2-16.2); Lymphocytes # (auto) 2.1 10 ^3/uL (0.4-5.4); Lymphocytes % (auto) 21.7 % (10.0-50.0); Mean Corpuscular Hemoglobin 27.5 pg (28.0-32.0); Monocytes # (auto) 0.6 10 ^3/uL (0-1.3); Monocytes % (auto) 6.5 % (0.0-12.0); Neutrophils # (auto) 6.6 10 ^3/uL (1.6-8.6); Neutrophils % (auto) 69.3 % (37.0-80.0); Nucleated Red Blood Cells % 0.1 %; Platelet Count (auto) 257 10^3/uL (140-450); Red Blood Cells 5.17 10^6/uL (4.0-5.20); Red Cell Distribution Width 16.1 % (11.8-14.3); White Blood Cell 9.6 10^3/uL (4.4-10.8)
[2024-08-04 18:33] LABS: Alanine Aminotransferase 35 U/L (7-40); Albumin 4.7 g/dL (3.2-4.8); Alkaline Phosphatase 84 U/L (46-116); Anion Gap 11 (5-15); Aspartate Aminotransferase 32 U/L (13-40); BUN/Creatinine Ratio 26.7 (10.0-20.0); Bilirubin, Total 0.5 mg/dL (0.2-1.0); Carbon Dioxide 24 mmol/L (20-31); Magnesium 1.8 mg/dL (1.6-2.6); Potassium 3.9 mmol/L (3.5-5.1); Sodium 144 mmol/L (136-145); Total Protein 6.9 g/dL (5.7-8.2)
[2024-08-04] MEDS: SODIUM CHLORIDE 0.9% 500 ML IV ONE (18:37)
--- NOTE | 2024-08-04 18:40 | DVH ---
EXAM: XR Chest, 1 View CLINICAL INDICATION: cp, palpit, afib rvr TECHNIQUE: Frontal view of the chest. COMPARISON: XY CHEST PORTABLE on DOS: 03/21/24 FINDINGS: LUNGS AND PLEURAL SPACES: Unremarkable. No consolidation. No pneumothorax. HEART: Unremarkable. No cardiomegaly. MEDIASTINUM: Unremarkable. Normal mediastinal contour. BONES/JOINTS: Unremarkable. No acute fracture. OTHER FINDINGS: . IMPRESSION: No acute cardiopulmonary process.
[2024-08-04 18:48] LABS: Blood Urea Nitrogen 24 mg/dL (9-23); Calcium 10.8 mg/dL (8.7-10.4); Chloride 109 mmol/L (98-107); Glucose 166 mg/dL (74-106)
--- NOTE | 2024-08-04 18:56 | ECG ---
[facility] Test Date: 2024-08-04 Test Time: 18:54:42 Pat Name: LAURA BUSH Department: ED Room: Gender: F Mobile Ui Designer: GV : 1940 Requested By: JUANITO PINO Order Number: [id number] Reading MD: El Mg Measurements Intervals [place] Rate: 98 P: 0 WI: 0 QRS: 85 QRSD: 90 T: 12 QT: 355 QTc: 454 Interpretive Statements Atrial fibrillation Borderline right axis deviation Probable anteroseptal infarct, old Electronically Signed On 08-04-2024 21:17:58 PDT by El Mg Please click the below link to view image of tracing.
[2024-08-04 19:55] LABS: Urine Bacteria None Seen /hpf (None Seen)
[2024-08-04 20:00] VITALS: PULSE 98; O2SAT 94
[2024-08-04 20:06] LABS: Urine Blood Negative /uL (Negative); Urine Clarity Clear (Clear); Urine Color Light-Yellow (Yellow); Urine Protein, UAD Negative (Negative); Urine Specific Gravity 1.011 (1.001-1.035); Urine Squamous Epithelial Cell FEW /hpf (<5); Urine Urobilinogen Normal (Negative); Urine WBC < 1 /HPF (0-5); Urine pH 6.5 (5.0-9.0)
[2024-08-04] MEDS: METOPROLOL TARTRATE 1MG/1ML-5ML VIAL IV ONE (20:10)
[2024-08-04] MEDS ORDERED: DOCUSATE SOD 100 MG CAP PO PRN (22:15)
[2024-08-04] MEDS ORDERED: NITROGLYCERIN 0.4 MG SL TAB SL PRN (22:15)
[2024-08-04] MEDS ORDERED: HYDROcodone-ACET 5/325MG TAB PO PRN (22:15)
[2024-08-04] MEDS ORDERED: ACETAMINOPHEN 325 MG TAB PO PRN (22:15)
[2024-08-04] MEDS ORDERED: METOPROLOL TARTRATE 1MG/1ML-5ML VIAL IV PRN (22:15)
[2024-08-04] MEDS ORDERED: MORPHINE SULFATE INJ 2 MG/ml SYRG IV PRN (22:15)
[2024-08-04] MEDS: SODIUM CHLORIDE 0.9% 1,000 ML IV ONE (22:16)
[2024-08-05] VITALS (8 sets, daily range): BP systolic 108–130; BP diastolic 59–81; PULSE 63–98; RESP 14–17; TEMP 36.7; O2SAT 93–96
--- NOTE | 2024-08-05 00:57 | DVHHP2 ---
PETER BENITEZ [employer] 08/05/24 0057: History of Present Illness Reason for Visit: Chest pain, palpitations History of Present Illness 84-year-old female with past medical history of AFib, CAD, hypertension, HLD, s/p PCI w/ stent RCA in February 2024 presents with complaints of chest pain and palpitations x1 day. Patient endorses she was previously diagnosed with AFib. States she has experienced a fast heart rate in the past. However today it was accompanied with chest pain. Patient was previously started on Eliquis. However she only took it for 1 day and stopped taking it because it caused nose to bleed. Is also on Plavix. Endorses her hospital educator is Dr. Mg. On arrival to the emergency department patient was noted to have a heart rate of 143. Patient was treated with IV metoprolol which improved heart rate. CBC was unremarkable. Troponin levels negative x3, (11/07/25) At this time patient denies fevers, chills, shortness of breath, nausea, vomiting, leg swelling Cardiovascular: AFIB, CAD, HTN, hyperipidemia Smoke: No ALCOHOL: none Drugs: None Lives: with Family Review of Systems Constitutional: No: Fever, Chills, Sweats, Weakness, Malaise, Other Eyes: No: Pain, Vision change, Conjunctivae inflammation, Eyelid inflammation, Other, Redness ENT: No: Ear pain, Ear discharge, Nose pain, Nose discharge, Nose congestion, Mouth pain, Mouth swelling, Throat pain, Throat swelling, Other Respiratory: Shortness of breath; No: Cough, Dry, SOB with excertion, Wheezing, Hemoptysis, Pleuritic Pain, Sputum, Wheezing, Other Cardiovascular: Chest Pain, Palpitations, Lt Headedness; No: Orthopnea, Paroxysmal Noc. Dyspnea, Edema, Other Gastrointestinal: No: Nausea, Vomiting, Abdominal Pain, Diarrhea, Constipation, Melena, Hematochezia, Other Genitourinary: No Dysuria, No Frequency, No Incontinence, No Hematuria, No Retention, No Other Musculoskeletal: No: other, neck pain, shoulder pain, arm pain, back pain, hand pain, leg pain, foot pain Skin: No: Rash, Lesions, Jaundice, Bruising, Other Neurological: No: Weakness, Numbness, Incoordination, Change in speech, Confusion, Seizures, Other Allergies: Coded Allergies: Penicillins (Verified Allergy, Unknown, 08/04/24) Medications Current Medications Medications Dose Ordered Sig/Rosa Route Start Time Stop Time Status Last Admin Dose Admin Docusate Sodium 100 mg BIDPRN PRN PO 08/04/24 22:15 Acetaminophen 650 mg Q6HP PRN PO 08/04/24 22:15 Acetaminophen/ Hydrocodone Bitart 1 tab Q4HP PRN PO 08/04/24 22:15 Nitroglycerin 0.4 mg Q5MINP PRN SL 08/04/24 22:15 Morphine Sulfate 2 mg Q30M PRN IV 08/04/24 22:15 Atorvastatin Calcium 80 mg DAILY PO 08/05/24 10:00 Enoxaparin Sodium 60 mg Q12HR SC 08/05/24 10:00 Metoprolol Tartrate 2.5 mg Q4HPRN PRN IV 08/04/24 22:15 Exam Vital Signs Vital Signs Date Time Temp Pulse Resp B/P (MAP) Pulse Ox O2 Delivery O2 Flow Rate FiO2 08/04/24 22:00 86 08/04/24 21:14 130/76 08/04/24 20:00 94 Room Air* 0 21 08/04/24 20:00 22 08/04/24 18:46 98.2 98.2 General Appearance: Alert, Oriented X3, Cooperative, mild distress HEENT: Atraumatic, PERRLA, EOMI Respiratory: Clear to auscultation, Normal air movement Cardiovascular: Regular rate, Normal S1, Normal S2 Abdominal: Normal bowel sounds, Soft, No tenderness Extremities: No clubbing, No cyanosis, No edema Skin: No rashes Neuro: Normal speech, Strength at 5/5 X4 ext Psych/Mental Status: Mental status NL, Mood NL Labs/Xrays Labs Test 08/04/24 21:11 08/04/24 18:22 08/04/24 18:05 Range/Units Troponin I High Sensitivity 26 </=34 ng/L Urine Color Light-yellow Yellow Urine Clarity Clear Clear Urine pH 6.5 5.0-9.0 Urine Specific [place] 1.011 1.001-1.035 Urine Protein Negative Negative Urine Ketones Negative Negative Urine Blood Negative Negative /uL Urine Nitrite Negative Negative Urine Bilirubin Negative Negative Urine Urobilinogen Normal Negative mg/dL Urine Leukocyte Esterase Negative Negative /uL Urine RBC 1 0 - 4 /hpf Urine Microscopic WBC < 1 0-5 /HPF Urine Squamous Epithelial Cells Few <5 /hpf Urine Bacteria None seen None Seen /hpf Urine Glucose Normal Normal mg/dL White Blood Count 9.6 4.4-10.8 10^3/uL Red Blood Count 5.17 4.0-5.20 10^6/uL Hemoglobin 14.3 12.2-16.2 g/dL Hematocrit 41.9 36.0-46.0 % Mean Corpuscular Volume 81.0 80.0-100.0 fL Mean Corpuscular Hemoglobin 27.5 L 28.0-32.0 pg Mean Corpuscular Hemoglobin Concent 34.0 32.0-36.0 g/dL Red Cell Distribution Width 16.1 H 11.8-14.3 % Platelet Count 257 140-450 10^3/uL Mean Platelet Volume 7.9 6.9-10.8 fL Neutrophils (%) (Auto) 69.3 37.0-80.0 % Lymphocytes (%) (Auto) 21.7 10.0-50.0 % Monocytes (%) (Auto) 6.5 0.0-12.0 % Eosinophils (%) (Auto) 1.8 0.0-7.0 % Basophils (%) (Auto) 0.7 0.0-2.0 % Neutrophils # (Auto) 6.6 1.6-8.6 10 ^3/uL Lymphocytes # (Auto) 2.1 0.4-5.4 10 ^3/uL Monocytes # (Auto) 0.6 0-1.3 10 ^3/uL Eosinophils # (Auto) 0.2 0-0.8 10 ^3/uL Basophils # (Auto) 0.1 0-0.2 10 ^3/uL Nucleated Red Blood Cells 0.1 % Sodium Level 144 136-145 mmol/L Potassium Level 3.9 3.5-5.1 mmol/L Chloride Level 109 H 98-107 mmol/L Carbon Dioxide Level 24 20-31 mmol/L Anion Gap 11 5-15 Blood Urea Nitrogen 24 H 9-23 mg/dL Creatinine 0.90 0.550-1.02 mg/dL Glomerular Filtration Rate Calc 64 >90 mL/min BUN/Creatinine Ratio 26.7 H 10.0-20.0 Serum Glucose 166 H 74-106 mg/dL Calcium Level 10.8 H 8.7-10.4 mg/dL Magnesium Level 1.8 1.6-2.6 mg/dL Total Bilirubin 0.5 0.2-1.0 mg/dL Aspartate Amino Transferase (AST) 32 13-40 U/L Alanine Aminotransferase (ALT) 35 7-40 U/L Alkaline Phosphatase 84 46-116 U/L B-Type Natriuretic Peptide 106.25 0-100 pg/mL Total Protein 6.9 5.7-8.2 g/dL Albumin 4.7 3.2-4.8 g/dL Assessment/Plan Assessment/Plan Atrial fibrillation with RVR Hypertension Hx PCI w stent RCA HX COPD Plan Admit telemetry Cardiology consult. Echocardiogram. Continue home medication after medication reconciliation has been completed. As needed and antihypertensive for optimal BP management. As needed antiarrhythmics. Check TSH, T4 levels with morning labs. Follow up troponin level. Bronchodilators as needed. Supplemental O2 to maintain oxygen saturation greater than 93%. IVF NS@50ml/hr x 1liter Gi ppx pepcid / dvt ppx therapeutic Lovenox Plan discussed with: Patient My Orders Orders - PETER BENITEZ NP Procedure Category Date Status Time Admit ADMIT 08/04/24 Transmitted 22:03 Code Status CODE 08/04/24 Transmitted 22:03 Vital Signs TIMUR 08/04/24 In Process 22:03 Review Orders With TIMUR 08/04/24 In Process Adm. 22:03 Encourage Activity As TIMUR 08/04/24 In Process Tolerate 22:03 Consistent DIET 08/05/24 Transmitted Carb(Ccho)Diabetes Breakfast Oxygen By Face Mask RT 08/04/24 Transmitted 22:03 Docusate Sodium PHA 08/04/24 In Process Capsule (Colace 22:15 Acetaminophen Tablet PHA 08/04/24 In Process (Tylenol Tablet) 22:15 Notify Of Changes TIMUR 08/04/24 In Process From Base 22:03 Advance Directive TIMUR 08/04/24 In Process 22:03 Echo 2d Mode Cardiac US 08/04/24 Logged DOP 22:03 Basic Metabolic Panel LAB 08/05/24 Logged 05:00 Basic Metabolic Panel LAB 08/06/24 Verified 05:00 Basic Metabolic Panel LAB 08/07/24 Verified 05:00 Basic Metabolic Panel LAB 08/08/24 Verified 05:00 Basic Metabolic Panel LAB 08/09/24 Verified 05:00 Complete Blood Count LAB 08/05/24 Logged 05:00 Complete Blood Count LAB 08/06/24 Verified 05:00 Complete Blood Count LAB 08/07/24 Verified 05:00 Complete Blood Count LAB 08/08/24 Verified 05:00 Complete Blood Count LAB 08/09/24 Verified 05:00 Patient Condition ORDERS 08/04/24 Transmitted 22:03 Allergies TIMUR 08/04/24 In Process 22:03 Hydrocodone-Acet PHA 08/04/24 In Process 5/325mg Tab ([place] 22:15 Nitroglycerin PHA 08/04/24 In Process Sublingual (Ntrostat 22:15 Morphine Sulfate PHA 08/04/24 In Process Injection 22:15 Stat Ekg For Chest TIMUR 08/04/24 In Process Pain 22:03 Notify Of Changes TIMUR 08/04/24 In Process From Base 22:03 Roster Clerk For TIMUR 08/04/24 In Process 24 Hours 22:03 Emergency Dysrhythmia TIMUR 08/04/24 In Process Protocol 22:03 Rhythm Strips Once TIMUR 08/04/24 In Process Every Shift 22:03 Oxygen By Nasal RT 08/04/24 Transmitted Cannula 22:03 * Cardiology Consult CONS 08/04/24 Transmitted 22:03 Atorvastatin (Lipitor) PHA 08/05/24 In Process 10:00 Enoxaparin Sodium PHA 08/05/24 In Process (Lovenox) 10:00 Thyroid Stimulating LAB 08/05/24 Logged Hormone 04:00 Free T4 (Free LAB 08/05/24 Logged Thyroxine) 04:00 Troponin-I Hs LAB 08/05/24 Logged 04:00 Troponin-I Hs LAB 08/05/24 Logged 12:00 Sodium Chloride 0.9% PHA 08/04/24 In Process 22:15 Metoprolol Inj PHA 08/04/24 In Process (Lopressor) 22:15 Date of Service: Aug 05, 2024 Billing Provider: ARNOL ADAMS MD Common Visit Codes: NOT BILLABLE ARNOL ADAMS MD 08/05/24 1451: Review of Systems Allergies: Coded Allergies: Penicillins (Verified Allergy, Unknown, 08/04/24) Additional Comments Additional Comments Additional Comments Patient's chart is reviewed and discussed with the nurse practitioner. Patient is seen and evaluated. I agree with the nurse practitioner's evaluation, documentation, assessment and care plan as outlined PETER BENITEZ NP Aug 05, 2024 00:57 ARNOL ADAMS MD Aug 05, 2024 14:51
--- NOTE | 2024-08-05 06:53 | ECG ---
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
--- NOTE | 2024-08-05 06:53 | ECG ---
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
[2024-08-05 07:06] LABS: Anion Gap 10 (5-15); Carbon Dioxide 24 mmol/L (20-31); Sodium 144 mmol/L (136-145)
[2024-08-05 07:07] LABS: Calcium 9.2 mg/dL (8.7-10.4)
[2024-08-05 07:09] LABS: Chloride 110 mmol/L (98-107)
[2024-08-05 07:12] LABS: BUN/Creatinine Ratio 23.9 (10.0-20.0); Basophils # (auto) 0.1 10 ^3/uL (0-0.2); Basophils % (auto) 0.7 % (0.0-2.0); Blood Urea Nitrogen 17 mg/dL (9-23); Eosinophils # (auto) 0.2 10 ^3/uL (0-0.8); Eosinophils % (auto) 2.2 % (0.0-7.0); Glucose 92 mg/dL (74-106); Hematocrit 40.6 % (36.0-46.0); Hemoglobin 13.7 g/dL (12.2-16.2); Lymphocytes # (auto) 2.8 10 ^3/uL (0.4-5.4); Lymphocytes % (auto) 32.9 % (10.0-50.0); Mean Corpuscular Hemoglobin 27.3 pg (28.0-32.0); Mean Corpuscular Hgb Conc. 33.6 g/dL (32.0-36.0); Mean Corpuscular Volume 81.1 fL (80.0-100.0); Monocytes # (auto) 0.7 10 ^3/uL (0-1.3); Monocytes % (auto) 7.9 % (0.0-12.0); Neutrophils # (auto) 4.7 10 ^3/uL (1.6-8.6); Neutrophils % (auto) 56.3 % (37.0-80.0); Nucleated Red Blood Cells % 0.1 %; Platelet Count (auto) 247 10^3/uL (140-450); Red Blood Cells 5.01 10^6/uL (4.0-5.20); Red Cell Distribution Width 16.1 % (11.8-14.3); White Blood Cell 8.4 10^3/uL (4.4-10.8)
[2024-08-05] MEDS: ATORVASTATIN 20 MG TAB PO SCH (10:21)
[2024-08-05] MEDS: ENOXAPARIN SOD 100 MG/1 ML SYRINGE SC SCH (10:22)
--- NOTE | 2024-08-05 13:32 | DVHSR ---
APPROVED REPORT EXAM: Two-dimensional and M-mode echocardiogram with Doppler and color Doppler. Blood Pressure: 114/71 mmHg INDICATION afib, rvr RISK FACTORS Height: 5'5, Weight: 132 DIMENSIONS LVDd3.8 (3.8-5.7cm)LA (2D)3.2 (1.9-4.0cm)Aortic Root3.0 (2.0-3.7cm) LVDs2.8 (2.5-4.0cm)LA (MM) (1.9-4.0cm)Aortic Cusp Exc1.6 (1.5-2.0cm) EF (%) 52.0 (55-70%)Rt. Atrium4.2 (1.9-4.0cm)Asc. Aorta cm IVSd1.0 (0.7-1.1cm)RV (D)5.0 (1.8-2.4cm) PWd1.4 (0.7-1.1cm) Mitral Valve MitralMitral Stenosis E wave0.83m/sMV Mean GR.mmHg A wave0.52m/sMV Peak GR.107mmHg E/A ratio1.62D MVAcm2 DECEL [id number] 1/2 [place] Aortic Valve Aortic ValveAortic Stenosis V11.09m/Willy Mean GR.7mmHg V21.99m/Willy Peak GR.14mmHg LVOT Diameter1.9 (1.8-2.4cm)Doppler AVA1.55cm2 Pulmonic Valve V20.99m/s Tricuspid Valve TR Velocity2.32m/s [id number] Conclusion lvef 50% moderate LVH grade 1 diastolic dysfunction normal rv function left atrium enlarged no severe valve abnormaliteis noted trivial pericardial effusion noted
[2024-08-05] MEDS ORDERED: METO25TA5 PO (14:48)
[2024-08-05] MEDS ORDERED: CLOP75TA70 PO (14:48)
[2024-08-05] MEDS ORDERED: ASPI81TA28 PO (14:48)
[2024-08-05] MEDS ORDERED: ATOR40TA52 PO (14:48)
[2024-08-05] MEDS ORDERED: FAMO-161 PO (14:48)
--- NOTE | 2024-08-05 14:53 | DVHDS2 ---
Discharge Summary Date of Admission Aug 04, 2024 at 22:03 Date of Discharge: Aug 05, 2024 Labs/Diagnostic Data: Laboratory Results Test 08/05/24 12:00 08/05/24 06:14 08/04/24 18:22 08/04/24 18:05 Troponin I High Sensitivity 52 ng/L (</=34) White Blood Count 8.4 10^3/uL (4.4-10.8) Red Blood Count 5.01 10^6/uL (4.0-5.20) Hemoglobin 13.7 g/dL (12.2-16.2) Hematocrit 40.6 % (36.0-46.0) Mean Corpuscular Volume 81.1 fL (80.0-100.0) Mean Corpuscular Hemoglobin 27.3 pg (28.0-32.0) Mean Corpuscular Hemoglobin Concent 33.6 g/dL (32.0-36.0) Red Cell Distribution Width 16.1 % (11.8-14.3) Platelet Count 247 10^3/uL (140-450) Mean Platelet Volume 8.2 fL (6.9-10.8) Neutrophils (%) (Auto) 56.3 % (37.0-80.0) Lymphocytes (%) (Auto) 32.9 % (10.0-50.0) Monocytes (%) (Auto) 7.9 % (0.0-12.0) Eosinophils (%) (Auto) 2.2 % (0.0-7.0) Basophils (%) (Auto) 0.7 % (0.0-2.0) Neutrophils # (Auto) 4.7 10 ^3/uL (1.6-8.6) Lymphocytes # (Auto) 2.8 10 ^3/uL (0.4-5.4) Monocytes # (Auto) 0.7 10 ^3/uL (0-1.3) Eosinophils # (Auto) 0.2 10 ^3/uL (0-0.8) Basophils # (Auto) 0.1 10 ^3/uL (0-0.2) Nucleated Red Blood Cells 0.1 % Sodium Level 144 mmol/L (136-145) Potassium Level 4.0 mmol/L (3.5-5.1) Chloride Level 110 mmol/L (98-107) Carbon Dioxide Level 24 mmol/L (20-31) Anion Gap 10 (5-15) Blood Urea Nitrogen 17 mg/dL (9-23) Creatinine 0.71 mg/dL (0.550-1.02) Glomerular Filtration Rate Calc 85 mL/min (>90) BUN/Creatinine Ratio 23.9 (10.0-20.0) Serum Glucose 92 mg/dL (74-106) Calcium Level 9.2 mg/dL (8.7-10.4) Thyroid Stimulating Hormone (TSH) 0.45 uIU/mL (0.55-4.78) Free Thyroxine (T4) Calculated 1.09 ng/dL (0.89-1.76) Urine Color Light-yellow (Yellow) Urine Clarity Clear (Clear) Urine pH 6.5 (5.0-9.0) Urine Specific [place] 1.011 (1.001-1.035) Urine Protein Negative (Negative) Urine Ketones Negative (Negative) Urine Blood Negative /uL (Negative) Urine Nitrite Negative (Negative) Urine Bilirubin Negative (Negative) Urine Urobilinogen Normal mg/dL (Negative) Urine Leukocyte Esterase Negative /uL (Negative) Urine RBC 1 /hpf (0 - 4) Urine Microscopic WBC < 1 /HPF (0-5) Urine Squamous Epithelial Cells Few /hpf (<5) Urine Bacteria None seen /hpf (None Seen) Urine Glucose Normal mg/dL (Normal) Magnesium Level 1.8 mg/dL (1.6-2.6) Total Bilirubin 0.5 mg/dL (0.2-1.0) Aspartate Amino Transferase (AST) 32 U/L (13-40) Alanine Aminotransferase (ALT) 35 U/L (7-40) Alkaline Phosphatase 84 U/L (46-116) B-Type Natriuretic Peptide 106.25 pg/mL (0-100) Total Protein 6.9 g/dL (5.7-8.2) Albumin 4.7 g/dL (3.2-4.8) Other Laboratory Tests 08/05/24 06:14 Brief Hx & Hospital Course: 84-year-old female with past medical history of AFib, CAD, hypertension, HLD, s/p PCI w/ stent RCA in February 2024 presents with complaints of chest pain and palpitations x1 day. Patient endorses she was previously diagnosed with AFib. States she has experienced a fast heart rate in the past. However today it was accompanied with chest pain. Patient was previously started on Eliquis. However she only took it for 1 day and stopped taking it because it caused nose to bleed. Is also on Plavix. Endorses her fresh foods technician is Dr. Mg. On arrival to the emergency department patient was noted to have a heart rate of 143. Patient was treated with IV metoprolol which improved heart rate. CBC was unremarkable. Troponin levels negative x3, (11/07/25) At this time patient denies fevers, chills, shortness of breath, nausea, vomiting, leg swelling. She is admitted and once again counseled and educated regarding compliance with the her medications. Apparently patient had a nosebleed after taking Eliquis therefore she has stopped taking it. Meantime she is taking aspirin 81 mg twice a day. However I told the patient that given she had a coronary angiogram with the RCA heart rate stent placement February this year that it is important to be on dual antiplatelet therapy. Therefore she is advised to continue aspirin once a day and also start taking Plavix once a day. Patient's heart rate is controlled now in sinus rhythm in the 70s. Patient is asymptomatic. Therefore patient is prescribed low-dose beta hao to keep the heart rate under control. She is advised to check her blood pressure and heart rate daily and to take the medications as she is prescribed. She is also advised to follow up with her fresh foods technician Dr. Luz Maria palomino in few weeks to go over with her regarding her medications and further manage her atrial fibrillation and heart problems as appropriate. I have talked with the patient regarding all of this at bedside and she has verbalized understanding of her hospital diagnosis, treatment she received, discharge medications, discharge instructions and agree with the discharge follow-up plan of care as outlined. Operations or Procedures APPROVED REPORT EXAM: Two-dimensional and M-mode echocardiogram with Doppler and color Doppler. Blood Pressure: 114/71 mmHg INDICATION afib, rvr RISK FACTORS Height: 5'5, Weight: 132 DIMENSIONS LVDd 3.8 (3.8-5.7cm) LA (2D) 3.2 (1.9-4.0cm) Aortic Root 3.0 (2.0- 3.7cm) LVDs 2.8 (2.5-4.0cm) LA (MM) (1.9-4.0cm) Aortic Cusp Exc 1.6 (1.5- 2.0cm) EF (%) 52.0 (55-70%) Rt. Atrium 4.2 (1.9-4.0cm) Asc. Aorta cm IVSd 1.0 (0.7-1.1cm) RV (D) 5.0 (1.8-2.4cm) PWd 1.4 (0.7-1.1cm) Mitral Valve Mitral Mitral Stenosis E wave 0.83m/s MV Mean GR. mmHg A wave 0.52m/s MV Peak GR. 107mmHg E/A ratio 1.6 2D MVA cm2 DECEL Time 171ms PRESS 1/2 Time ms Aortic Valve Aortic Valve Aortic Stenosis V1 1.09m/s AO Mean GR. 7mmHg V2 1.99m/s AO Peak GR. 14mmHg LVOT Diameter 1.9 (1.8-2.4cm) Doppler NIKKI 1.55cm2 Pulmonic Valve V2 0.99m/s Tricuspid Valve TR Velocity 2.32m/s RVSP 29mmHg Conclusion lvef 50% moderate LVH grade 1 diastolic dysfunction normal rv function left atrium enlarged no severe valve abnormaliteis noted trivial pericardial effusion noted SIGNED BY: YAA SOMMERS MD SIGNED DATE/TIME: 08/05/24 1332 Condition at Discharge: Stable Final Diagnosis/Problems List Atrial fibrillation with a rapid ventricular response now converted to normal sinus rhythm, atherosclerotic coronary artery disease with RCA stent placement in February 2024. Discharge Disposition: Home Discharge Instruct/Medications Diet: Consistent carbohydrate, Cardiac 2g Na,low cholest Activity: No Restrictions, As Tolerated Follow Up/Referral: Primary care physician after two weeks. Dr. Loera a your fresh foods technician next week for further management of your heart rate and coronary artery disease and to review your blood thinner medications Medications: Please take all medications as prescribed for discharge med reconciliation list. New Medications: Aspirin (Aspirin Ec) 81 Mg Tab 81 MG PO DAILY, #30 TAB Atorvastatin Calcium (Atorvastatin Calcium) 40 Mg Tab 1 TAB PO QPM, #90 TAB Clopidogrel Bisulfate (Clopidogrel) 75 Mg Tab 1 TAB PO DAILY, #90 TAB 1 Refill Famotidine (Pepcid AC) 20 Mg Tab 20 MG PO DAILY, #30 TAB Metoprolol Tartrate (Metoprolol Tartrate) 25 Mg Tab 0.5 TAB PO DAILY, #60 TAB 1 Refill To take half a tablet (12.5 mg) daily. Hold if your heart rate is below 60. Discharge Statement: "Patient was advised to return to the ER or call 911 if any headaches, dizziness, shortness of breath, chest pain, abdominal pain, bleeding, fevers, or worsening of medical condition. Patient was counseled about treatment plan, medications, possible side effects, patientverbalized understanding. All questions were answered to the best of my ability. This discharge took greater then 30 minutes in planning, reviewing documentation, counseling the patient, and discussing with other team members." ASSESSMENT ASSESSMENT Assessment Atrial fibrillation with a rapid ventricular response now converted to normal sinus rhythm, atherosclerotic coronary artery disease with RCA stent placement in February 2024. ARNOL ADAMS MD Aug 05, 2024 14:53
[2024-08-05] MEDS ORDERED: LIDOCAINE HCL 2% TOP JELLY 5ML TOP ONE (23:42)
== END 2024-08-05 18:55 | disposition home or self-care (01) | DRG 310 ==
LOC: ER 17:53 → OVERFLOW 22:03 → TELE-EAST 23:20
PROVIDERS: ADMIT Nurse Practitioner Family; ATTEND Nurse Practitioner Family
DX: I48.91 Unspecified atrial fibrillation (principal); I25.10 Atherosclerotic heart disease of native coronary artery without angina pectoris; I10 Essential (primary) hypertension; E78.5 Hyperlipidemia, unspecified; J44.9 Chronic obstructive pulmonary disease, unspecified; R04.0 Epistaxis; Z88.0 Allergy status to penicillin; Z95.5 Presence of coronary angioplasty implant and graft; Z79.82 Long term (current) use of aspirin; Z79.02 Long term (current) use of antithrombotics/antiplatelets; Z79.899 Other long term (current) drug therapy
CPT/HCPCS: 36415; 71045; 80048; 80053; 81001; 83735; 83880; 84439; 84443; 84484; 85025; 93005; 93306; 96361; 96374; 99291; G0378

== ENCOUNTER 2024-09-03 21:32 | Inpatient (IN) | payer MEDICARE, OTHER ==
[~2024-09-03] VITALS: Ht 165.1 cm; Wt 61.3 kg
[~2024-09-03 21:32] MED LIST changes: -ACETTAB89 PO; -ACYC400T16 PO; -ASCO500C49 PO; -ASPI1TAB20 PO; +ASPI81TA28 PO; +ATOR40TA52 PO; -CALC-355 OR; -CEPH-37 PO; -CHOL3000 PO; -COEN100C37 PO; -CYAN100023 PO; +FAMO-161 PO; -FURO1TAB31 PO; -GINK40TA PO; -GLUC1500 OR; -IBUP-1456 PO; +METO25TA5 PO; -MULTCAP45 PO; -NOR10T PO; -OMEGCAP OR; -SIMV40TA42 PO; -TRAM50TA2 PO; -VITA400T4 PO; -[UNRECOGNIZED DRUG - CODE] PO
--- NOTE | 2024-09-03 22:14 | ED.PDOC ---
HPI Comments 84 year old female with a history of AFib, CAD, hypertension, dyslipidemia and COPD brought in by EMS from home complaining of chest pain. Patient states chest pain started around 18 30 while at rest, is localized to the retrosternal area, is pressure-like, constant, non radiating, associated with palpitations and shortness of breath. Patient self medicated with metoprolol and 3 SL NTG prior to calling paramedics. Patient denies any chest pain or palpitations at this time. Chief Complaint: Chest Pain Time Seen by MD: 22:13 Primary Care Provider: PALOMO Olivarez Notes: Foundry Technician Notes Allergies: Coded Allergies: Penicillins (Verified Allergy, Unknown, 08/04/24) Home Meds Active Scripts Famotidine (Pepcid AC) 20 Mg Tab, 20 MG PO DAILY, #30 TAB Prov:ARNOL ADAMS MD 08/05/24 Atorvastatin Calcium (ATORVASTATIN CALCIUM) 40 Mg Tab, 1 TAB PO QPM, #90 TAB Prov:ARNOL ADAMS MD 08/05/24 Metoprolol Tartrate (Metoprolol Tartrate) 25 Mg Tab, 0.5 TAB PO DAILY, #60 TAB 1 Refill To take half a tablet (12.5 mg) daily. Hold if your heart rate is below 60. Prov:ARNOL ADAMS MD 08/05/24 Clopidogrel Bisulfate (CLOPIDOGREL) 75 Mg Tab, 1 TAB PO DAILY, #90 TAB 1 Refill Prov:ARNOL ADAMS MD 08/05/24 Aspirin (Aspirin Ec) 81 Mg Tab, 81 MG PO DAILY, #30 TAB Prov:ARNOL ADAMS MD 08/05/24 Information Source: Patient Mode of Arrival: EMS Severity: Moderate Timing: Hours Duration: Since onset Prehospital treatment: NTG, Treatment Location: Substernal Radiation: No Radiation Quality: Pressure Onset: With Light Exertion Cardiac Risk Factors: HTN, Other (AFIB) PE Risk Factors: None History of: Similar pain in past Associated Signs and Symptoms: SOB, Palpitations Past Medical History PAST MEDICAL HISTORY: AFIB, CAD, Cancer, COPD, High Lipids, HTN Surgical History: PTCA, Tonsillectomy TERMITE CONTROL SERVICE REPRESENTATIVE History: No Pertinent TERMITE CONTROL SERVICE REPRESENTATIVE History Family History Family History: Reviewed,noncontributory to illness Social History Smoker: Non-Smoker Alcohol: Denies ETOH Use Drugs: Denies Drug Use Lives In: Home Constitutional: denies: chills, diaphoresis, fatigue, fever, malaise, sweats, weakness, others EENTM: denies: blurred vision, double vision, ear bleeding, ear discharge, ear drainage, ear pain, ear ringing, eye pain, eye redness, hearing loss, mouth pain, mouth swelling, nasal discharge, nose bleeding, nose congestion, nose pain, photophobia, tearing, throat pain, throat swelling, voice changes, others Respiratory: reports: SOB at rest, shortness of breath; denies: cough, hemoptysis, orthopnea, SOB with excertion, stridor, wheezing, others Cardiovascular: reports: chest pain, palpitations; denies: dizzy spells, diaphoresis, Dyspnea on exertion, edema, irregular heart beat, left arm pain, lightheadedness, PND, syncope, others Gastrointestinal: denies: abdomen distended, abdominal pain, blood streaked bowels, constipated, diarrhea, dysphagia, difficulty swallowing, hematemesis, melena, nausea, poor appetite, poor fluid intake, rectal bleeding, rectal pain, vomiting, others Genitourinary: denies: abnormal vagina bleeding, burning, dyspareunia, dysuria, flank pain, frequency, hematuria, incontinence, pain, , vagina discharge, urgency, others Neurological: denies: dizziness, fainting, headache, left sided numbness, left sided weakness, numbness, paresthesia, pre-existing deficit, right sided numbness, right sided weakness, seizure, speech problems, tingling, tremors, weakness, others Musculoskeletal: denies: back pain, gout, joint pain, joint swelling, muscle pain, muscle stiffness, neck pain, others Integumetry: denies: bruises, change in color, change in hair/nails, dryness, laceration, lesions, lumps, rash, wounds, others Allergic/Immunocompromised: denies: Difficulty Healing, Frequent Infections, Hives, Itching, others Hematologic/Lymphatic: denies: anemia, blood clots, easy bleeding, easy bruising, swollen glands, others Endocrine: denies: excessive hunger, excessive sweating, excessive thirst, excessive urination, flushing, intolerance to cold, intolerance to heat, unexplained weight gain, unexplained weight loss, others Psychiatric: denies: anxiety, bipolar disorder, depression, hopeless, panic disorder, schizophrenia, sleepless, suicidal, others Physical Exam General Appearance: No Apparent Distress HEENT: Other (Pupils and face symmetric. Moist mucous membranes.) Neck: Full Range of Motion, Normal Inspection Respiratory: Lungs Clear, No Accessory Muscle Use, No Respiratory Distress, Normal Breath Sounds Cardiovascular: Irregular, No Edema, No JVD, Tachycardia Breast Exam: Deferred Gastrointestinal: Non Tender, Soft Genitalia: Deferred Pelvic: Deferred Rectal: Deferred Extremities: Normal inspection, Normal range of motion, Non-tender, No pedal edema Neurologic: Alert (Oriented x4), Normal Affect, Normal Mood Cerebellar Function: NOT DONE Reflexes: NOT DONE Skin: Dry, Normal Color, Warm Lymphatic: NOT DONE EKG EKG : Comments AFib with RVR, rate 124, normal QRS interval, QTC 489, normal axis, normal QRS, no ST/T change. Was a procedure done? Was a procedure done?: No CP Differential Dx Differential Diagnosis: A-fib, Angina, Anxiety / Panic Attack, Electrolyte Disorder, Pulmonary Embolus Differential Diagnosis: CHF Differential Diagnosis: Angina, Chest Wall Pain, Costochondritis, Esophageal reflux/spasm, Gastritis, Myocardial Infarction, Pericarditis, Pneumonia X-Ray, Labs, Meds, VS Vital Signs Date Time Temp Pulse Resp B/P (MAP) Pulse Ox O2 Delivery O2 Flow Rate FiO2 09/03/24 21:34 96.6 120 16 121/88 (99) 96 96.6 09/03/24 21:32 124 Lab Test 09/03/24 23:05 09/03/24 22:11 09/03/24 22:04 Range/Units Troponin I High Sensitivity 14 12 </=34 ng/L Urine Color Colorless Yellow Urine Clarity Clear Clear Urine pH 7.5 5.0-9.0 Urine Specific [place] 1.007 1.001-1.035 Urine Protein Negative Negative Urine Ketones Negative Negative Urine Blood Negative Negative /uL Urine Nitrite Negative Negative Urine Bilirubin Negative Negative Urine Urobilinogen Normal Negative mg/dL Urine Leukocyte Esterase Negative Negative /uL Urine RBC <1 0 - 4 /hpf Urine Microscopic WBC < 1 0-5 /HPF Urine Squamous Epithelial Cells None seen <5 /hpf Urine Bacteria None seen None Seen /hpf Urine Glucose Normal Normal mg/dL White Blood Count 11.1 H 4.4-10.8 10^3/uL Red Blood Count 5.21 H 4.0-5.20 10^6/uL Hemoglobin 14.1 12.2-16.2 g/dL Hematocrit 43.1 36.0-46.0 % Mean Corpuscular Volume 82.7 80.0-100.0 fL Mean Corpuscular Hemoglobin 27.1 L 28.0-32.0 pg Mean Corpuscular Hemoglobin Concent 32.8 32.0-36.0 g/dL Red Cell Distribution Width 16.8 H 11.8-14.3 % Platelet Count 268 140-450 10^3/uL Mean Platelet Volume 8.2 6.9-10.8 fL Neutrophils (%) (Auto) 57.9 37.0-80.0 % Lymphocytes (%) (Auto) 30.7 10.0-50.0 % Monocytes (%) (Auto) 8.3 0.0-12.0 % Eosinophils (%) (Auto) 2.3 0.0-7.0 % Basophils (%) (Auto) 0.8 0.0-2.0 % Neutrophils # (Auto) 6.4 1.6-8.6 10 ^3/uL Lymphocytes # (Auto) 3.4 0.4-5.4 10 ^3/uL Monocytes # (Auto) 0.9 0-1.3 10 ^3/uL Eosinophils # (Auto) 0.2 0-0.8 10 ^3/uL Basophils # (Auto) 0.1 0-0.2 10 ^3/uL Nucleated Red Blood Cells 0.1 % Prothrombin Time 10.0 9.3-11.8 sec Prothrombin Time INR 0.94 0.9-1.15 Activated Partial Thromboplast Time 26.4 24.5-34.5 SEC Sodium Level 140 136-145 mmol/L Potassium Level 4.5 3.5-5.1 mmol/L Chloride Level 107 98-107 mmol/L Carbon Dioxide Level 24 20-31 mmol/L Anion Gap 9 5-15 Blood Urea Nitrogen 19 9-23 mg/dL Creatinine 0.87 0.550-1.02 mg/dL Glomerular Filtration Rate Calc 66 >90 mL/min BUN/Creatinine Ratio 21.8 H 10.0-20.0 Serum Glucose 108 H 74-106 mg/dL Calcium Level 10.9 H 8.7-10.4 mg/dL B-Type Natriuretic Peptide 76.40 0-100 pg/mL Thyroid Stimulating Hormone (TSH) 0.44 L 0.55-4.78 uIU/mL Free Thyroxine (T4) Calculated 1.16 0.89-1.76 ng/dL PROCEDURE(s): CXRP - CHEST PORTABLE REASON: cp ORDER NUMBER(s): [id number], ACCESSION NUMBER(s): [id number] INDICATION: cp TECHNIQUE: Frontal view of the chest. COMPARISON: XY CHEST PORTABLE on DOS: 08/04/24, XY CHEST PORTABLE on DOS: 03/21/24 FINDINGS/IMPRESSION: Mild haziness of the lung bases is likely at least partially referable to overlying soft tissue attenuation. Unchanged cardiomediastinal silhouette. No pleural effusion or pneumothorax. Unchanged osseous structures. Bilateral breast implants are noted. X-Ray, Labs, Meds, VS Comment 84-year-old female with a history of AFib, CAD, hypertension, dyslipidemia, COPD and prior PTCA complaining of chest pain Vitals remarkable for heart rate 124 Exam remarkable for irregularly irregular tachycardic heart rhythm Rhythm strip independently interpreted by me: AFib with RVR, rate 124, no PVCs Chest x-ray FINDINGS/IMPRESSION: Mild haziness of the lung bases is likely at least partially referable to overlying soft tissue attenuation. Unchanged cardiomediastinal silhouette. No pleural effusion or pneumothorax. Unchanged osseous structures. Bilateral breast implants are noted. CBC, basic metabolic panel, BNP, 2 serial troponins and UA unremarkable for any abnormality of acute significance Patient treated herself with 3 sublingual nitroglycerin, p.o. metoprolol and 324 mg of p.o. aspirin at home prior to arrival. Patient treated with the following in the ED: Metoprolol 2.5 mg IV On re-evaluation, heart rate is improving. Other vitals were stable. Plan is to admit the patient for Cardiology evaluation and rate control. Case discussed with JUAN Hahn, who will admit the patient. Time of 1ST Reevaluation: 22:08 Reevaluation 1ST: Unchanged Patient Education/Counseling: Diagnosis, Treatment Family Education/Counseling: No Family Present SEPSIS Sepsis Screen Date sepsis recognized/suspect: Sep 03, 2024 Time Sepsis recognized/suspect: 2133 Recent Procedure: No On Antibiotic Therapy: No Respiratory Rate >20: No Heart Rate >90: No Temp<36 C (96.8 F) or >38.3 C: No SBP <90 or MAP <65 mmHG: No New Acute Mental Status Change: No Is the patient on CPAP, BIPAP,: No SEPSIS EXCLUSION NOTE: Sepsis Exclusion Note: Patient presents with SIRS criteria, but the SIRS response is attributed to [ rapid AFib], not a suspected infection. Sepsis bundle is not initiated at this time, due to this reason. Further management will focus on the treatment of the above condition (s). Physician Orders Electrocardigram (09/03/24 21:38) Chest Portable (09/03/24 21:46) Vital Signs Date Time Temp Pulse Resp B/P (MAP) Pulse Ox O2 Delivery O2 Flow Rate FiO2 09/03/24 21:34 96.6 120 16 121/88 (99) 96 96.6 09/03/24 21:32 124 Laboratory Tests Test 09/03/24 22:04 White Blood Count 11.1 10^3/uL (4.4-10.8) H Departure 1 Departure Time of Disposition: 00:30 Impression: Primary Impression: Atrial fibrillation with RVR Additional Impression: Unstable angina Disposition: ADMITTED INPATIENT Admit to: Tele Condition: Guarded Critical Care Note Critical Care Time?: Yes (35 min-critical care time only) Critical care comment: Critical care time including multiple bedside re-evaluations, review of lab and imaging studies, and discussion of the case with the admitting provider. Patie nt is high risk for hemodynamic decompensation. Stability Stability form required: No Heart Score Heart Score: Heart Score Response (Comments) Value History Moderate Suspicious 1 EKG Repolarization Disturb 1 Age >65 2 Risk Factors >3 or Hx ASHD 2 Troponin Normal limit 0 Total 6 I personally scribed for NGHIA TROTTER MD ([email or web address]) on 09/03/24 at 22:14. Electronically submitted by Bonilla Danielson ([email or web address]). NGHIA TROTTER MD Sep 03, 2024 22:14
[2024-09-03 22:32] LABS: Hematocrit 43.1 % (36.0-46.0); Hemoglobin 14.1 g/dL (12.2-16.2); Mean Corpuscular Hemoglobin 27.1 pg (28.0-32.0); Mean Corpuscular Volume 82.7 fL (80.0-100.0); Nucleated Red Blood Cells % 0.1 %
[2024-09-03 22:38] LABS: Urine Protein, UAD Negative (Negative)
[2024-09-03 22:40] LABS: Chloride 107 mmol/L (98-107); Potassium 4.5 mmol/L (3.5-5.1); Sodium 140 mmol/L (136-145)
[2024-09-03 22:41] LABS: Anion Gap 9 (5-15); Carbon Dioxide 24 mmol/L (20-31)
[2024-09-03 22:46] LABS: BUN/Creatinine Ratio 21.8 (10.0-20.0); Blood Urea Nitrogen 19 mg/dL (9-23)
[2024-09-03 22:47] LABS: Calcium 10.9 mg/dL (8.7-10.4); Glucose 108 mg/dL (74-106)
[2024-09-03 23:07] LABS: INR 0.94 (0.9-1.15); Partial Thromboplastin Time 26.4 SEC (24.5-34.5); Prothrombin Time 10.0 sec (9.3-11.8)
--- NOTE | 2024-09-03 23:24 | DVH ---
INDICATION: cp TECHNIQUE: Frontal view of the chest. COMPARISON: XY CHEST PORTABLE on DOS: 08/04/24, XY CHEST PORTABLE on DOS: 03/21/24 FINDINGS/IMPRESSION: Mild haziness of the lung bases is likely at least partially referable to overlying soft tissue atten uation. Unchanged cardiomediastinal silhouette. No pleural effusion or pneumothorax. Unchanged osseo us structures. Bilateral breast implants are noted.
[2024-09-03] MEDS ORDERED: ACETAMINOPHEN 325 MG TAB PO PRN (23:45)
[2024-09-03] MEDS ORDERED: DOCUSATE SOD 100 MG CAP PO PRN (23:45)
[2024-09-03] MEDS ORDERED: NITROGLYCERIN 0.4 MG SL TAB SL PRN (23:45)
[2024-09-03] MEDS ORDERED: HYDROcodone-ACET 5/325MG TAB PO PRN (23:45)
[2024-09-03] MEDS ORDERED: MORPHINE SULFATE INJ 2 MG/ml SYRG IV PRN ×2 (23:45)
[2024-09-03] MEDS ORDERED: ONDANSETRON HCL 4 MG/2 ML VIAL IV PRN (23:45)
[2024-09-03] MEDS ORDERED: METOPROLOL TARTRATE 1MG/1ML-5ML VIAL IV PRN (23:45)
[2024-09-04] VITALS (9 sets, daily range): BP systolic 108–126; BP diastolic 59–76; PULSE 63–80; RESP 16–18; TEMP 96.3–97.7; O2SAT 94–96
[2024-09-04] MEDS: METOPROLOL TARTRATE 1MG/1ML-5ML VIAL IV ONE (01:55)
--- NOTE | 2024-09-04 02:39 | DVHHP2 ---
PETER BENITEZ KINESIOTHERAPIST 09/04/24 0239: History of Present Illness Reason for Visit: Chest pain History of Present Illness 84-year-old female with past medical history of AFib, CAD, PCI with stent to RCA February 2024, COPD presents with complaints of chest pain palpitations. Patient states she was sitting at rest after having dinner when she began to experience chest pain and heart palpitations. Chest pain is substernal radiating to the left side of the chest. 08/03. Also endorsed shortness of breath. Patient states she checked her heart rate and it was 125. Patient took sublingual nitroglycerin and metoprolol prior to going to the hospital. At this time patient denies fevers, chills, dizziness, abdominal pain, dysuria, leg swelling. Cardiovascular: AFIB, CAD, HTN, VT Pulmonary: COPD Smoke: No ALCOHOL: none Drugs: None Lives: with Family Review of Systems Constitutional: No: Fever, Chills, Sweats, Weakness, Malaise, Other Eyes: No: Pain, Vision change, Conjunctivae inflammation, Eyelid inflammation, Other, Redness ENT: No: Ear pain, Ear discharge, Nose pain, Nose discharge, Nose congestion, Mouth pain, Mouth swelling, Throat pain, Throat swelling, Other Respiratory: Shortness of breath; No: Cough, Dry, SOB with excertion, Wheezing, Hemoptysis, Pleuritic Pain, Sputum, Wheezing, Other Cardiovascular: Chest Pain, Palpitations; No: Orthopnea, Paroxysmal Noc. Dyspnea, Edema, Lt Headedness, Other Gastrointestinal: No: Nausea, Vomiting, Abdominal Pain, Diarrhea, Constipation, Melena, Hematochezia, Other Genitourinary: No Dysuria, No Frequency, No Incontinence, No Hematuria, No Retention, No Other Musculoskeletal: No: other, neck pain, shoulder pain, arm pain, back pain, hand pain, leg pain, foot pain Skin: No: Rash, Lesions, Jaundice, Bruising, Other Neurological: No: Weakness, Numbness, Incoordination, Change in speech, Confusion, Seizures, Other Allergies: Coded Allergies: Penicillins (Verified Allergy, Unknown, 08/04/24) Medications Current Medications Medications Dose Ordered Sig/Rosa Route Start Time Stop Time Status Last Admin Dose Admin Docusate Sodium 100 mg BIDPRN PRN PO 09/03/24 23:45 Acetaminophen 650 mg Q6HP PRN PO 09/03/24 23:45 Acetaminophen/ Hydrocodone Bitart 1 tab Q4HP PRN PO 09/03/24 23:45 Ondansetron HCl 4 mg Q4HP PRN IV 09/03/24 23:45 Morphine Sulfate 2 mg Q4HPRN PRN IV 09/03/24 23:45 Nitroglycerin 0.4 mg Q5MINP PRN SL 09/03/24 23:45 Morphine Sulfate 2 mg Q30M PRN IV 09/03/24 23:45 Metoprolol Tartrate 12.5 mg DAILY PO 09/04/24 10:00 Famotidine 20 mg DAILY IV 09/04/24 10:00 Clopidogrel Bisulfate 75 mg DAILY PO 09/04/24 10:00 Aspirin 81 mg DAILY PO 09/04/24 10:00 Metoprolol Tartrate 2.5 mg Q4HPRN PRN IV 09/03/24 23:45 Atorvastatin Calcium 40 mg HS PO 09/04/24 22:00 UNV Exam Vital Signs Vital Signs Date Time Temp Pulse Resp B/P (MAP) Pulse Ox O2 Delivery O2 Flow Rate FiO2 09/04/24 01:56 62 16 95 Room Air 09/04/24 01:55 125/71 09/04/24 01:45 97.7 97.7 General Appearance: Alert, Oriented X3, Cooperative, mild distress HEENT: Atraumatic, PERRLA, EOMI Respiratory: Clear to auscultation, Normal air movement Cardiovascular: Normal S1, Normal S2 Abdominal: Normal bowel sounds, Soft, No tenderness Extremities: No cyanosis, No edema Skin: No rashes, No breakdown Neuro: Normal speech, Strength at 5/5 X4 ext Psych/Mental Status: Mental status NL, Mood NL Labs/Xrays Labs Test 09/04/24 01:15 09/03/24 22:11 09/03/24 22:04 Range/Units Troponin I High Sensitivity 15 </=34 ng/L Urine Color Colorless Yellow Urine Clarity Clear Clear Urine pH 7.5 5.0-9.0 Urine Specific [place] 1.007 1.001-1.035 Urine Protein Negative Negative Urine Ketones Negative Negative Urine Blood Negative Negative /uL Urine Nitrite Negative Negative Urine Bilirubin Negative Negative Urine Urobilinogen Normal Negative mg/dL Urine Leukocyte Esterase Negative Negative /uL Urine RBC <1 0 - 4 /hpf Urine Microscopic WBC < 1 0-5 /HPF Urine Squamous Epithelial Cells None seen <5 /hpf Urine Bacteria None seen None Seen /hpf Urine Glucose Normal Normal mg/dL White Blood Count 11.1 H 4.4-10.8 10^3/uL Red Blood Count 5.21 H 4.0-5.20 10^6/uL Hemoglobin 14.1 12.2-16.2 g/dL Hematocrit 43.1 36.0-46.0 % Mean Corpuscular Volume 82.7 80.0-100.0 fL Mean Corpuscular Hemoglobin 27.1 L 28.0-32.0 pg Mean Corpuscular Hemoglobin Concent 32.8 32.0-36.0 g/dL Red Cell Distribution Width 16.8 H 11.8-14.3 % Platelet Count 268 140-450 10^3/uL Mean Platelet Volume 8.2 6.9-10.8 fL Neutrophils (%) (Auto) 57.9 37.0-80.0 % Lymphocytes (%) (Auto) 30.7 10.0-50.0 % Monocytes (%) (Auto) 8.3 0.0-12.0 % Eosinophils (%) (Auto) 2.3 0.0-7.0 % Basophils (%) (Auto) 0.8 0.0-2.0 % Neutrophils # (Auto) 6.4 1.6-8.6 10 ^3/uL Lymphocytes # (Auto) 3.4 0.4-5.4 10 ^3/uL Monocytes # (Auto) 0.9 0-1.3 10 ^3/uL Eosinophils # (Auto) 0.2 0-0.8 10 ^3/uL Basophils # (Auto) 0.1 0-0.2 10 ^3/uL Nucleated Red Blood Cells 0.1 % Prothrombin Time 10.0 9.3-11.8 sec Prothrombin Time INR 0.94 0.9-1.15 Activated Partial Thromboplast Time 26.4 24.5-34.5 SEC Sodium Level 140 136-145 mmol/L Potassium Level 4.5 3.5-5.1 mmol/L Chloride Level 107 98-107 mmol/L Carbon Dioxide Level 24 20-31 mmol/L Anion Gap 9 5-15 Blood Urea Nitrogen 19 9-23 mg/dL Creatinine 0.87 0.550-1.02 mg/dL Glomerular Filtration Rate Calc 66 >90 mL/min BUN/Creatinine Ratio 21.8 H 10.0-20.0 Serum Glucose 108 H 74-106 mg/dL Calcium Level 10.9 H 8.7-10.4 mg/dL B-Type Natriuretic Peptide 76.40 0-100 pg/mL Thyroid Stimulating Hormone (TSH) 0.44 L 0.55-4.78 uIU/mL Free Thyroxine (T4) Calculated 1.16 0.89-1.76 ng/dL SEPSIS Sepsis Screen Date sepsis recognized/suspect: Sep 04, 2024 Time Sepsis recognized/suspect: 157 Recent Procedure: No On Antibiotic Therapy: No Respiratory Rate >20: No Heart Rate >90: No Temp<36 C (96.8 F) or >38.3 C: No SBP <90 or MAP <65 mmHG: No New Acute Mental Status Change: No Is the patient on CPAP, BIPAP,: No Physician Orders Electrocardigram (09/03/24 21:38) Chest Portable (09/03/24 21:46) Admit (09/03/24 23:35) Code Status (09/03/24 23:35) Vital Signs .PER UNIT PROTOCOL (09/03/24 23:35) Review Orders With Adm.Md (09/03/24 23:35) Encourage Activity As Tolerate (09/03/24 23:35) Consistent Carb(Ccho)Diabetes (09/04/24 Breakfast) Oxygen By Face Mask (09/03/24 23:35) Docusate Sodium Capsule (Colace Capsule) (09/03/24 23:45) Acetaminophen Tablet (Tylenol Tablet) (09/03/24 23:45) Notify Md Of Changes From Base (09/03/24 23:35) Advance Directive (09/03/24 23:35) Echo 2d Mode Cardiac Dop (09/03/24 23:35) Basic Metabolic Panel (09/04/24 05:00) Basic Metabolic Panel (09/05/24 05:00) Basic Metabolic Panel (09/06/24 05:00) Basic Metabolic Panel (09/07/24 05:00) Basic Metabolic Panel (09/08/24 05:00) Complete Blood Count (09/04/24 05:00) Complete Blood Count (09/05/24 05:00) Complete Blood Count (09/06/24 05:00) Complete Blood Count (09/07/24 05:00) Complete Blood Count (09/08/24 05:00) Patient Condition (09/03/24 23:35) Allergies (09/03/24 23:35) Hydrocodone-Acet 5/325mg Tab ([place] /32 (09/03/24 23:45) Ondansetron Hcl (Zofran) (09/03/24 23:45) Morphine Sulfate Injection (09/03/24 23:45) Nitroglycerin Sublingual (Ntrostat Subli (09/03/24 23:45) Morphine Sulfate Injection (09/03/24 23:45) Stat Ekg For Chest Pain (09/03/24 23:35) Notify Md Of Changes From Base (09/03/24 23:35) Skilled Nursing Facilities Professional For 24 Hours (09/03/24 23:35) Emergency Dysrhythmia Protocol (09/03/24 23:35) Rhythm Strips Once Every Shift (09/03/24 23:35) Oxygen By Nasal Cannula (09/03/24 23:35) Metoprolol Tartrate Tablet (Lopressor Ta (09/04/24 10:00) Famotidine Injection (Pepcid Injection) (09/04/24 10:00) Clopidogrel Bisulfate (Plavix) (09/04/24 10:00) Aspirin Enteric Coated Tablet (Ecotrin E (09/04/24 10:00) * Cardiology Consult (09/03/24 23:35) Metoprolol Inj (Lopressor) (09/03/24 23:45) Atorvastatin (Lipitor) (09/04/24 22:00) Pt Request For Service (09/04/24 02:30) * Personnel Psychologist Consult (09/04/24 ) Vital Signs Date Time Temp Pulse Resp B/P (MAP) Pulse Ox O2 Delivery O2 Flow Rate FiO2 09/04/24 01:56 62 16 95 Room Air 09/04/24 01:55 63 125/71 09/04/24 01:45 97.7 62 16 125/72 (89) 95 97.7 09/03/24 21:34 96.6 120 16 121/88 (99) 96 96.6 09/03/24 21:32 124 Laboratory Tests Test 09/03/24 22:04 White Blood Count 11.1 10^3/uL (4.4-10.8) H Assessment/Plan Assessment/Plan A fib RVR Chest pain CAD Hypertension Hx PCI w/stent RCA in February 2024 Hx COPD not currently in exacerbation Plan Admit telemetry Cardiology consult. Echocardiogram (08/05/24 estimated LVEF 50%). Continue home medication. As needed antihypertensive for optimal BP management. As needed antiarrhythmics for rate control. Bronchodilators. As needed as supplemental O2 to maintain oxygen saturation greater than 93%. Incentive spirometry. Physical therapy evaluation social service consult for home safety evaluation GI ppx Pepcid DVT ppx SCD on DAPT Plan discussed with: Patient My Orders Orders - PETER BENITEZ NP Procedure Category Date Status Time Admit ADMIT 09/03/24 Transmitted 23:35 Code Status CODE 09/03/24 Transmitted 23:35 Vital Signs TIMUR 09/03/24 In Process 23:35 Review Orders With TIMUR 09/03/24 In Process Adm. 23:35 Encourage Activity As TIMUR 09/03/24 In Process Tolerate 23:35 Consistent DIET 09/04/24 Transmitted Carb(Ccho)Diabetes Breakfast Oxygen By Face Mask RT 09/03/24 Transmitted 23:35 Docusate Sodium PHA 09/03/24 In Process Capsule (Colace 23:45 Acetaminophen Tablet PHA 09/03/24 In Process (Tylenol Tablet) 23:45 Notify Of Changes TIMUR 09/03/24 In Process From Base 23:35 Advance Directive TIMUR 09/03/24 In Process 23:35 Echo 2d Mode Cardiac US 09/03/24 Logged DOP 23:35 Basic Metabolic Panel LAB 09/04/24 Logged 05:00 Basic Metabolic Panel LAB 09/05/24 Verified 05:00 Basic Metabolic Panel LAB 09/06/24 Verified 05:00 Basic Metabolic Panel LAB 09/07/24 Verified 05:00 Basic Metabolic Panel LAB 09/08/24 Verified 05:00 Complete Blood Count LAB 09/04/24 Logged 05:00 Complete Blood Count LAB 09/05/24 Verified 05:00 Complete Blood Count LAB 09/06/24 Verified 05:00 Complete Blood Count LAB 09/07/24 Verified 05:00 Complete Blood Count LAB 09/08/24 Verified 05:00 Patient Condition ORDERS 09/03/24 Transmitted 23:35 Allergies TIMUR 09/03/24 In Process 23:35 Hydrocodone-Acet PHA 09/03/24 In Process 5/325mg Tab ([place] 23:45 Ondansetron Hcl PHA 09/03/24 In Process (Zofran) 23:45 Morphine Sulfate PHA 09/03/24 In Process Injection 23:45 Nitroglycerin PHA 09/03/24 In Process Sublingual (Ntrostat 23:45 Morphine Sulfate PHA 09/03/24 In Process Injection 23:45 Stat Ekg For Chest TIMUR 09/03/24 In Process Pain 23:35 Notify Md Of Changes TIMUR 09/03/24 In Process From Base 23:35 Skilled Nursing Facilities Professional For TIMUR 09/03/24 In Process 24 Hours 23:35 Emergency Dysrhythmia TIMUR 09/03/24 In Process Protocol 23:35 Rhythm Strips Once TIMUR 09/03/24 In Process Every Shift 23:35 Oxygen By Nasal RT 09/03/24 Transmitted Cannula 23:35 Metoprolol Tartrate PHA 09/04/24 In Process Tablet (Lopressor Ta 10:00 Famotidine Injection PHA 09/04/24 In Process (Pepcid Injection) 10:00 Clopidogrel Bisulfate PHA 09/04/24 In Process (Plavix) 10:00 Aspirin Enteric PHA 09/04/24 In Process Coated Tablet 10:00 * Cardiology Consult CONS 09/03/24 Transmitted 23:35 Metoprolol Inj PHA 09/03/24 In Process (Lopressor) 23:45 Atorvastatin (Lipitor) PHA 09/04/24 Logged 22:00 Pt Request For Service PT 09/04/24 Logged 02:30 * Personnel Psychologist CONS 09/04/24 Transmitted Consult Date of Service: Sep 04, 2024 Billing Provider: ARNOL ADAMS MD Common Visit Codes: NOT BILLABLE ARNOL ADAMS MD 09/04/24 1321: Review of Systems Allergies: Coded Allergies: Penicillins (Verified Allergy, Unknown, 08/04/24) Additional Comments Additional Comments Additional Comments Patient's chart is reviewed and discussed with the nurse practitioner. Patient is seen evaluated and admitted by KINESIOTHERAPIST this morning. I agree with his evaluation, documentation, assessment and care plan as outlined. Patient is seen and evaluated by me today. Cardiology recommendations noted and medications have been adjusted accordingly. PETER BENITEZ NP Sep 04, 2024 02:39 ARNOL ADAMS MD Sep 04, 2024 13:21
[2024-09-04] MEDS: ASPirin-EC 81 mg tab PO SCH (08:42)
[2024-09-04] MEDS: CLOPIDOGREL BISULFATE 75 MG TAB PO SCH (08:42)
[2024-09-04] MEDS: FAMOTIDINE (10MG/ML) 2ML VL IV SCH (08:42)
[2024-09-04 09:03] LABS: Hematocrit 44.0 % (36.0-46.0); Hemoglobin 14.8 g/dL (12.2-16.2); Mean Corpuscular Hemoglobin 27.6 pg (28.0-32.0); Mean Corpuscular Volume 82.0 fL (80.0-100.0); Nucleated Red Blood Cells % 0.1 %
[2024-09-04 09:11] LABS: Potassium 4.3 mmol/L (3.5-5.1); Sodium 140 mmol/L (136-145)
[2024-09-04 09:12] LABS: Anion Gap 8 (5-15); Calcium 10.3 mg/dL (8.7-10.4); Carbon Dioxide 24 mmol/L (20-31)
[2024-09-04 09:15] LABS: Chloride 108 mmol/L (98-107)
[2024-09-04 09:17] LABS: BUN/Creatinine Ratio 28.4 (10.0-20.0); Blood Urea Nitrogen 21 mg/dL (9-23); Glucose 92 mg/dL (74-106)
[2024-09-04] MEDS ORDERED: METOPROLOL TARTRATE 25 MG TAB PO SCH (10:00)
[2024-09-04] MEDS: METOPROLOL TARTRATE 25 MG TAB PO SCH (10:00)
--- NOTE | 2024-09-04 11:17 | DVHINCON2 ---
Date of service: Sep 04, 2024 History of Present Illness HPI Patient is a 84-year-old female who presented to the hospital with palpitation/chest discomfort. She mentions that her heart rate was in the 125 at home. Cardiology is involved for cardiac aspects of care. Patient is known to have coronary artery disease and has had PCI in February 2024. She also has history of atrial fibrillation for which does not take anticoagulation (she stopped it previously as she said that she had some nosebleed). She has been noncompliant with medications. Home Meds Active Scripts Famotidine (Pepcid AC) 20 Mg Tab, 20 MG PO DAILY, #30 TAB Prov:ARNOL ADAMS MD 08/05/24 Atorvastatin Calcium (ATORVASTATIN CALCIUM) 40 Mg Tab, 1 TAB PO QPM, #90 TAB Prov:ARNOL ADAMS MD 08/05/24 Metoprolol Tartrate (Metoprolol Tartrate) 25 Mg Tab, 0.5 TAB PO DAILY, #60 TAB 1 Refill To take half a tablet (12.5 mg) daily. Hold if your heart rate is below 60. Prov:ARNOL ADAMS MD 08/05/24 Clopidogrel Bisulfate (CLOPIDOGREL) 75 Mg Tab, 1 TAB PO DAILY, #90 TAB 1 Refill Prov:ARNOL ADAMS MD 08/05/24 Aspirin (Aspirin Ec) 81 Mg Tab, 81 MG PO DAILY, #30 TAB Prov:ARNOL ADAMS MD 08/05/24 Past Medical History Others Past medical history includes atrial fibrillation, coronary artery disease and status post PCI, hypertension, hyperlipidemia, and COPD. She is ex-smoker. Denies substance abuse. Father had NH at age of 53 Patient Family History: Cardiovascular disease G8 FATHER Family history: Cardiovascular disease G8 FATHER Hypertension G8 MOTHER Smoker: Quit Alocohol: None Drugs: None Review of Systems Constitutional: No symptom reported Ears, Nose, & Throat: No symptom reported Cardiovascular: Chest Pain, Palpitations All Other Systems Fourteen point review of system was performed. Relevant findings as per above and as per HPI. Otherwise negative. H&P Exam Vital Signs Vital Signs Date Time Temp Pulse Resp B/P (MAP) Pulse Ox O2 Delivery O2 Flow Rate FiO2 09/04/24 08:18 96.5 70 18 108/71 (83) 94 96.5 09/04/24 07:30 Room Air* 0 21 General Appeara: Well developed Head Exam: Normal inspection Eye Exam: bilateral eye PERRL Nasal Exam: Normal inspection Mouth: Normal Inspection Pulmonary/Respiratory: Lungs clear Cardiovascular/Chest: Irregularly irregular Peripheral Pulses: 2+ carotid (R), 2+ carotid (L), 2+ femoral (R), 2+ femoral (L), 2+ dorsalis pedis (R), 2+ dorsalis pedis (L), 2+ Radial (R), 2+ Radial (L) Abdominal Exam: Normal bowel sounds, Soft Neuro/Mental St: Alert, Oriented Appearance: Appropriate appearance Eye contact/ Speech: Cooperative Labs/Xrays Labs Test 09/04/24 08:26 09/04/24 01:15 09/03/24 22:11 09/03/24 22:04 Range/Units White Blood Count 9.2 4.4-10.8 10^3/uL Red Blood Count 5.37 H 4.0-5.20 10^6/uL Hemoglobin 14.8 12.2-16.2 g/dL Hematocrit 44.0 36.0-46.0 % Mean Corpuscular Volume 82.0 80.0-100.0 fL Mean Corpuscular Hemoglobin 27.6 L 28.0-32.0 pg Mean Corpuscular Hemoglobin Concent 33.7 32.0-36.0 g/dL Red Cell Distribution Width 16.8 H 11.8-14.3 % Platelet Count 259 140-450 10^3/uL Mean Platelet Volume 8.4 6.9-10.8 fL Neutrophils (%) (Auto) 57.8 37.0-80.0 % Lymphocytes (%) (Auto) 30.1 10.0-50.0 % Monocytes (%) (Auto) 8.5 0.0-12.0 % Eosinophils (%) (Auto) 2.8 0.0-7.0 % Basophils (%) (Auto) 0.8 0.0-2.0 % Neutrophils # (Auto) 5.3 1.6-8.6 10 ^3/uL Lymphocytes # (Auto) 2.8 0.4-5.4 10 ^3/uL Monocytes # (Auto) 0.8 0-1.3 10 ^3/uL Eosinophils # (Auto) 0.3 0-0.8 10 ^3/uL Basophils # (Auto) 0.1 0-0.2 10 ^3/uL Nucleated Red Blood Cells 0.1 % Sodium Level 140 136-145 mmol/L Potassium Level 4.3 3.5-5.1 mmol/L Chloride Level 108 H 98-107 mmol/L Carbon Dioxide Level 24 20-31 mmol/L Anion Gap 8 5-15 Blood Urea Nitrogen 21 9-23 mg/dL Creatinine 0.74 0.550-1.02 mg/dL Glomerular Filtration Rate Calc 81 >90 mL/min BUN/Creatinine Ratio 28.4 H 10.0-20.0 Serum Glucose 92 74-106 mg/dL Calcium Level 10.3 8.7-10.4 mg/dL Troponin I High Sensitivity 15 </=34 ng/L Urine Color Colorless Yellow Urine Clarity Clear Clear Urine pH 7.5 5.0-9.0 Urine Specific [place] 1.007 1.001-1.035 Urine Protein Negative Negative Urine Ketones Negative Negative Urine Blood Negative Negative /uL Urine Nitrite Negative Negative Urine Bilirubin Negative Negative Urine Urobilinogen Normal Negative mg/dL Urine Leukocyte Esterase Negative Negative /uL Urine RBC <1 0 - 4 /hpf Urine Microscopic WBC < 1 0-5 /HPF Urine Squamous Epithelial Cells None seen <5 /hpf Urine Bacteria None seen None Seen /hpf Urine Glucose Normal Normal mg/dL Prothrombin Time 10.0 9.3-11.8 sec Prothrombin Time INR 0.94 0.9-1.15 Activated Partial Thromboplast Time 26.4 24.5-34.5 SEC B-Type Natriuretic Peptide 76.40 0-100 pg/mL Thyroid Stimulating Hormone (TSH) 0.44 L 0.55-4.78 uIU/mL Free Thyroxine (T4) Calculated 1.16 0.89-1.76 ng/dL Assessment/Plan Plan Patient is a 84-year-old female who presented to the hospital with palpitation/chest discomfort. She mentions that her heart rate was in the 125 at home. Cardiology is involved for cardiac aspects of care. Patient is known to have coronary artery disease and has had PCI in February 2024. She also has history of atrial fibrillation for which does not take anticoagulation (she stopped it previously as she said that she had some nosebleed). She has been noncompliant with medication Not in acute distress. Mucosa pink and wet. No carotid bruit. No goiter. Cardiac: Irregular, no thrill/gallop. Abdomen is soft. There is no gross mass/hepatomegaly. There is no peripheral edema. Dorsalis pedis is 2+ bilateral. Past medical history includes atrial fibrillation, coronary artery disease and status post PCI, hypertension, hyperlipidemia, and COPD. She is ex-smoker. Denies substance abuse. Father had NH at age of 53 WBC: 11.1 Hemoglobin: 14.1 Creatinine: 0.87 Potassium: 4.5 BNP: 76.40 Troponin (high sensitive): TSH: 0.44 Free T4: 1.16 Chest x-ray revealed: Mild haziness of the lung bases is likely at least partially referable to overlying soft tissue attenuation. Unchanged cardiomediastinal silhouette. No pleural effusion or pneumothorax. Unchanged osseous structures. Bilateral breast implants are noted. EKG revealed atrial fibrillation with RVR on arrival Tele reveals atrial fibrillation with moderate ventricular response Patient is a 84-year-old female who presented with atypical chest discomfort and palpitation. Was found to have atrial fibrillation with RVR on arrival. Does have baseline history of atrial fibrillation. Previously was not taking anticoagulation. Does have history of coronary artery disease and has had PCI in February 2024. Has been noncompliant with medication which could have contributed to clinical picture. High sensitive troponin has been negative. Presentation is not considered acute coronary syndrome at this point. Recent echocardiogram of July 2024 revealed preserved left ventricular systolic function a moderate concentric left ventricular hypertrophy. Recognizing comorbidities and age, patient's CHADS-VASc score is high and long-term full anticoagulation is advised. Patient agreed to try Xarelto for anticoagulation. Atrial fibrillation with RVR Coronary artery disease, status post PCI Hypertension Hyperlipidemia COPD Noncompliance with medications Cardiac suggestion for management: Managed on telemetry Follow-up electrolytes and kidney function tests and correct abnormalities. Keep potassium above4 and magnesium above2 Xarelto: 15 mg p.o. with dinner Continue Plavix: 75 mg daily Add isosorbide mononitrate, long-acting (Imdur ER): 30 mg daily Start sotalol at 40 mg p.o. b.i.d. No indication for ischemic workup at this point Further evaluation and management depends on the above and clinical course Thank you for consultation Evaluation and management of leukocytosis as per primary team A total of 75 minutes was spent reviewing the patient record, examining the patient, making a diagnostic and therapeutic plan, discussing this plan with medical personnel, following up on diagnostic studies and following the patient for clinical stability excluding any and all procedures. At least 50% of this time was spent in direct, [id number] contact. Thank you for allowing me to participate in this patient's care. Further recommendations will depend on patient's clinical course. Please do not hesitate to contact me if you have any questions or concerns. This medical document was created using electronic medical record system with [employer] computerized dictation system. Although this document has been carefully reviewed, there may still be some phonetic and typographical errors. These areas are purely typographical due to the imperfection of the software programs, and do not reflect any compromise in the patient's medical care. Plan discussed with: Patient, Other (nurse) ADWOA RIZVI MD Sep 04, 2024 11:16
[2024-09-04] MEDS: RIVAROXABAN 15 MG TAB PO SCH (17:18)
[2024-09-04] MEDS: ATORVASTATIN 20 MG TAB PO SCH (21:25)
[2024-09-04] MEDS: SOTALOL HCL 80 MG TAB PO SCH (21:25)
[2024-09-05 01:00] VITALS: BP 129/61; PULSE 83; RESP 18; TEMP 97.9; O2SAT 92
[2024-09-05 05:00] VITALS: BP 124/58; PULSE 61; RESP 17; TEMP 97.8; O2SAT 95
[2024-09-05 05:47] LABS: Hematocrit 42.2 % (36.0-46.0); Hemoglobin 13.9 g/dL (12.2-16.2); Mean Corpuscular Hemoglobin 27.6 pg (28.0-32.0); Mean Corpuscular Volume 83.5 fL (80.0-100.0); Nucleated Red Blood Cells % 0.1 %
[2024-09-05 05:55] LABS: Potassium 4.5 mmol/L (3.5-5.1); Sodium 141 mmol/L (136-145)
[2024-09-05 05:56] LABS: Anion Gap 7 (5-15); Carbon Dioxide 26 mmol/L (20-31)
[2024-09-05 05:57] LABS: Calcium 10.3 mg/dL (8.7-10.4)
[2024-09-05 06:01] LABS: BUN/Creatinine Ratio 25.8 (10.0-20.0); Glucose 96 mg/dL (74-106)
[2024-09-05 06:11] LABS: Blood Urea Nitrogen 25 mg/dL (9-23); Chloride 108 mmol/L (98-107)
[2024-09-05 08:00] VITALS: PULSE 60
[2024-09-05 08:42] VITALS: BP 119/70; PULSE 59; RESP 19; TEMP 97.6; O2SAT 94
[2024-09-05] MEDS: CLOPIDOGREL BISULFATE 75 MG TAB PO SCH (10:01)
[2024-09-05] MEDS: ISOSORBIDE MONONITRATE ER 60 MG TAB PO SCH (10:02)
[2024-09-05] MEDS ORDERED: SOTA80TA PO ×2 (12:04)
[2024-09-05] MEDS ORDERED: RIVA15TA PO (12:04)
--- NOTE | 2024-09-05 12:06 | DVHDS2 ---
Discharge Summary Date of Admission Sep 03, 2024 at 23:35 Date of Discharge: Sep 05, 2024 Labs/Diagnostic Data: Laboratory Results Test 09/05/24 05:03 09/04/24 01:15 09/03/24 22:11 09/03/24 22:04 White Blood Count 9.7 10^3/uL (4.4-10.8) Red Blood Count 5.05 10^6/uL (4.0-5.20) Hemoglobin 13.9 g/dL (12.2-16.2) Hematocrit 42.2 % (36.0-46.0) Mean Corpuscular Volume 83.5 fL (80.0-100.0) Mean Corpuscular Hemoglobin 27.6 pg (28.0-32.0) Mean Corpuscular Hemoglobin Concent 33.0 g/dL (32.0-36.0) Red Cell Distribution Width 17.0 % (11.8-14.3) Platelet Count 272 10^3/uL (140-450) Mean Platelet Volume 8.2 fL (6.9-10.8) Neutrophils (%) (Auto) 52.4 % (37.0-80.0) Lymphocytes (%) (Auto) 34.6 % (10.0-50.0) Monocytes (%) (Auto) 9.0 % (0.0-12.0) Eosinophils (%) (Auto) 3.2 % (0.0-7.0) Basophils (%) (Auto) 0.8 % (0.0-2.0) Neutrophils # (Auto) 5.1 10 ^3/uL (1.6-8.6) Lymphocytes # (Auto) 3.4 10 ^3/uL (0.4-5.4) Monocytes # (Auto) 0.9 10 ^3/uL (0-1.3) Eosinophils # (Auto) 0.3 10 ^3/uL (0-0.8) Basophils # (Auto) 0.1 10 ^3/uL (0-0.2) Nucleated Red Blood Cells 0.1 % Sodium Level 141 mmol/L (136-145) Potassium Level 4.5 mmol/L (3.5-5.1) Chloride Level 108 mmol/L (98-107) Carbon Dioxide Level 26 mmol/L (20-31) Anion Gap 7 (5-15) Blood Urea Nitrogen 25 mg/dL (9-23) Creatinine 0.97 mg/dL (0.550-1.02) Glomerular Filtration Rate Calc 58 mL/min (>90) BUN/Creatinine Ratio 25.8 (10.0-20.0) Serum Glucose 96 mg/dL (74-106) Calcium Level 10.3 mg/dL (8.7-10.4) Troponin I High Sensitivity 15 ng/L (</=34) Urine Color Colorless (Yellow) Urine Clarity Clear (Clear) Urine pH 7.5 (5.0-9.0) Urine Specific [place] 1.007 (1.001-1.035) Urine Protein Negative (Negative) Urine Ketones Negative (Negative) Urine Blood Negative /uL (Negative) Urine Nitrite Negative (Negative) Urine Bilirubin Negative (Negative) Urine Urobilinogen Normal mg/dL (Negative) Urine Leukocyte Esterase Negative /uL (Negative) Urine RBC <1 /hpf (0 - 4) Urine Microscopic WBC < 1 /HPF (0-5) Urine Squamous Epithelial Cells None seen /hpf (<5) Urine Bacteria None seen /hpf (None Seen) Urine Glucose Normal mg/dL (Normal) Prothrombin Time 10.0 sec (9.3-11.8) Prothrombin Time INR 0.94 (0.9-1.15) Activated Partial Thromboplast Time 26.4 SEC (24.5-34.5) B-Type Natriuretic Peptide 76.40 pg/mL (0-100) Thyroid Stimulating Hormone (TSH) 0.44 uIU/mL (0.55-4.78) Free Thyroxine (T4) Calculated 1.16 ng/dL (0.89-1.76) Other Laboratory Tests 09/05/24 05:03 Brief Hx & Hospital Course: 84-year-old female with past medical history of AFib, CAD, PCI with stent to RCA February 2024, COPD presents with complaints of chest pain palpitations. Patient states she was sitting at rest after having dinner when she began to experience chest pain and heart palpitations. Chest pain is substernal radiating to the left side of the chest. /10. Also endorsed shortness of breath. Patient states she checked her heart rate and it was 125. Patient took sublingual nitroglycerin and metoprolol prior to going to the hospital. At this time patient denies fevers, chills, dizziness, abdominal pain, dysuria, leg swelling. She is admitted and evaluated by bsa/aml compliance officer. Beta-hao has been discontinued. She is recommended to be on sotalol and anticoagulated for stroke prevention. She is started on Xarelto per recommendations from Cardiology. With these medications heart rate is controlled. She is feeling better. Therefore it is felt she could be safely discharged home. Patient is counseled and educated regarding change in her medications and advised to continue these new medications as prescribed and have a close follow up with the PCP and primary care physician. She has verbalized understanding of this, verbalized understanding hospital diagnosis, treatment she received, discharge medications, discharge instructions and agree with follow-up plan of care as outlined Consults/Reason for consult Assessment/Plan Plan Patient is a 84-year-old female who presented to the hospital with palpitation/chest discomfort. She mentions that her heart rate was in the 125 at home. Cardiology is involved for cardiac aspects of care. Patient is known to have coronary artery disease and has had PCI in February 2024. She also has history of atrial fibrillation for which does not take anticoagulation (she stopped it previously as she said that she had some nosebleed). She has been noncompliant with medication Not in acute distress. Mucosa pink and wet. No carotid bruit. No goiter. Cardiac: Irregular, no thrill/gallop. Abdomen is soft. There is no gross mass/hepatomegaly. There is no peripheral edema. Dorsalis pedis is 2+ bilateral. Past medical history includes atrial fibrillation, coronary artery disease and status post PCI, hypertension, hyperlipidemia, and COPD. She is ex-smoker. Denies substance abuse. Father had [place] at age of 53 WBC: 11.1 Hemoglobin: 14.1 Creatinine: 0.87 Potassium: 4.5 BNP: 76.40 Troponin (high sensitive): - 15 TSH: 0.44 Free T4: 1.16 Chest x-ray revealed: Mild haziness of the lung bases is likely at least partially referable to overlying soft tissue attenuation. Unchanged cardiomediastinal silhouette. No pleural effusion or pneumothorax. Unchanged osseous structures. Bilateral breast implants are noted. EKG revealed atrial fibrillation with RVR on arrival Tele reveals atrial fibrillation with moderate ventricular response Patient is a 84-year-old female who presented with atypical chest discomfort and palpitation. Was found to have atrial fibrillation with RVR on arrival. Does have baseline history of atrial fibrillation. Previously was not taking anticoagulation. Does have history of coronary artery disease and has had PCI in February 2024. Has been noncompliant with medication which could have contributed to clinical picture. High sensitive troponin has been negative. Presentation is not considered acute coronary syndrome at this point. Recent echocardiogram of July 2024 revealed preserved left ventricular systolic function a moderate concentric left ventricular hypertrophy. Recognizing comorbidities and age, patient's CHADS-VASc score is high and long-term full anticoagulation is advised. Patient agreed to try Xarelto for anticoagulation. Atrial fibrillation with RVR Coronary artery disease, status post PCI Hypertension Hyperlipidemia COPD Noncompliance with medications Cardiac suggestion for management: Managed on telemetry Follow-up electrolytes and kidney function tests and correct abnormalities. Keep potassium above4 and magnesium above2 Xarelto: 15 mg p.o. with dinner Continue Plavix: 75 mg daily Add isosorbide mononitrate, long-acting (Imdur ER): 30 mg daily Start sotalol at 40 mg p.o. b.i.d. No indication for ischemic workup at this point Further evaluation and management depends on the above and clinical course Thank you for consultation Evaluation and management of leukocytosis as per primary team A total of 75 minutes was spent reviewing the patient record, examining the patient, making a diagnostic and therapeutic plan, discussing this plan with medical personnel, following up on diagnostic studies and following the patient for clinical stability excluding any and all procedures. At least 50% of this time was spent in direct, [id number] contact. Thank you for allowing me to participate in this patient's care. Further recommendations will depend on patient's clinical course. Please do not hesitate to contact me if you have any questions or concerns. This medical document was created using electronic medical record system with [employer] computerized dictation system. Although this document has been carefully reviewed, there may still be some phonetic and typographical errors. These areas are purely typographical due to the imperfection of the software programs, and do not reflect any compromise in the patient's medical care. Plan discussed with: Patient, Other (nurse) ADWOA RIZVI MD Sep 04, 2024 11:16 Condition at Discharge: Stable Final Diagnosis/Problems List Atrial fibrillation with a rapid ventricular response, CAD Discharge Disposition: Home Discharge Instruct/Medications Diet: Cardiac 2g Na,low cholest Activity: No Restrictions, As Tolerated Follow Up/Referral: Primary care physician and bsa/aml compliance officer 2-3 weeks for atrial fibrillation management Medications: Take the medications as prescribed. Stop taking aspirin and metoprolol. Continue Plavix and cholesterol medicine as you were taking at home. New Medications: Rivaroxaban (Xarelto) 15 Mg Tab 15 MG PO QPM, #60 TAB 1 Refill Sotalol Hcl (Sotalol Hcl) 80 Mg Tab 0.5 TAB PO BID, #60 TAB 1 Refill Take half a tablet (40 mg) twice a day Continued Medications: Atorvastatin Calcium (Atorvastatin Calcium) 40 Mg Tab 1 TAB PO QPM, #90 TAB Clopidogrel Bisulfate (Clopidogrel) 75 Mg Tab 1 TAB PO DAILY, #90 TAB 1 Refill Famotidine (Pepcid AC) 20 Mg Tab 20 MG PO DAILY, #30 TAB Discontinued Medications: Aspirin (Aspirin Ec) 81 Mg Tab 81 MG PO DAILY, #30 TAB Metoprolol Tartrate (Metoprolol Tartrate) 25 Mg Tab 0.5 TAB PO DAILY, #60 TAB 1 Refill To take half a tablet (12.5 mg) daily. Hold if your heart rate is below 60. Scheduled Atorvastatin Calcium (Atorvastatin Calcium), 1 TAB PO QPM Clopidogrel Bisulfate (Clopidogrel), 1 TAB PO DAILY Famotidine (Pepcid AC), 20 MG PO DAILY Rivaroxaban (Xarelto), 15 MG PO QPM Sotalol Hcl (Sotalol Hcl), 0.5 TAB PO BID Discontinued Medications Aspirin (Aspirin Ec), 81 MG PO DAILY Metoprolol Tartrate (Metoprolol Tartrate), 0.5 TAB PO DAILY Discharge Statement: "Patient was advised to return to the ER or call 911 if any headaches, dizziness, shortness of breath, chest pain, abdominal pain, bleeding, fevers, or worsening of medical condition. Patient was counseled about treatment plan, medications, possible side effects, patientverbalized understanding. All questions were answered to the best of my ability. This discharge took greater then 30 minutes in planning, reviewing documentation, counseling the patient, and discussing with other team members." ASSESSMENT ASSESSMENT Assessment Atrial fibrillation with a rapid ventricular response, CAD ARNOL ADAMS MD Sep 05, 2024 12:06
[2024-09-05 12:27] VITALS: BP 103/52; PULSE 60; RESP 20; TEMP 96.5; O2SAT 93
[2024-09-05 13:24] VITALS: BP 103/52; PULSE 60; RESP 20; TEMP 98.5; O2SAT 93
--- NOTE | 2024-09-06 08:10 | ECG ---
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
== END 2024-09-05 14:45 | disposition home or self-care (01) | DRG 309 ==
LOC: EDBD 21:32 → ER 21:32 → OVERFLOW 23:35 → TELE-EAST 23:42
PROVIDERS: ADMIT Nurse Practitioner Family; ATTEND Nurse Practitioner Family
DX: I48.91 Unspecified atrial fibrillation (principal); I25.110 Atherosclerotic heart disease of native coronary artery with unstable angina pectoris; I10 Essential (primary) hypertension; E78.5 Hyperlipidemia, unspecified; J44.9 Chronic obstructive pulmonary disease, unspecified; Z88.0 Allergy status to penicillin; Z79.82 Long term (current) use of aspirin; Z79.899 Other long term (current) drug therapy; Z95.5 Presence of coronary angioplasty implant and graft; Z91.148 Patient's other noncompliance with medication regimen for other reason; Z79.02 Long term (current) use of antithrombotics/antiplatelets; Z87.891 Personal history of nicotine dependence; Z82.49 Family history of ischemic heart disease and other diseases of the circulatory system
CPT/HCPCS: 36415; 71045; 80048; 81001; 83880; 84439; 84443; 84484; 85025; 85610; 85730; 93005; 96374; 97163; 99291; G0378; J3490